=== PATIENT | female | born 1955 | race Caucasian/White ===

== ENCOUNTER → 2021-03-09 09:07 | Outpatient (CLI) | payer MEDICARE, SELFPAY ==
[2021-03-09 12:59] LABS: COVID19 -Nasal RAPID Negative (Negative)
== END ==
PROVIDERS: Family Provider Family Medicine; PCP Family Medicine; Visit Provider Obstetrics & Gynecology
DX: Z20.822 Contact with and (suspected) exposure to COVID-19 (principal)
CPT/HCPCS: 87635

== ENCOUNTER 2021-03-10 09:33 | Day surgery (SDC) | payer MEDICARE, SELFPAY ==
[2021-03-10 10:05] VITALS: BP 134/84; PULSE 101; RESP 16; TEMP 36.8; O2SAT 96; BMI 40.8
--- NOTE | 2021-03-10 10:48 | PM.HP.1 ---
History of Present Illness History of Present Illness Date Patient Seen: 03/10/21 Time Patient Seen: 10:48 Chief complaint: SDC Narrative: Patient is a 65-year-old 3 para 2 with multiple bilateral sebaceous cysts of the labia. She is here for excision. Patient History Family & Social History Social History: household members spouse Tobacco & Substance use: Smoking Status Never smoker alcohol intake never Substance Use Type marijuana Meds Home Medications and Allergies Home Medications Medication Instructions Recorded Confirmed Type simvastatin 20 mg PO HS #0 08/09/12 03/10/21 History clonazepam 0.5 mg tablet 0.5 mg PO DAILY 02/16/21 03/10/21 History amlodipine 2.5 mg PO DAILY 03/10/21 03/10/21 History losartan 25 mg PO DAILY 03/10/21 03/10/21 History mirabegron [Myrbetriq] 25 mg PO DAILY 03/10/21 03/10/21 History Allergies Allergy/AdvReac Type Severity Reaction Status Date / Time penicillin G Allergy Intermediate Verified 03/10/21 09:56 Exam Vital Signs (past 8 hours): - 03/10/21 10:05 Temperature 98.3 F Pulse Rate 101 H Respiratory Rate 16 Blood Pressure 134/84 Pulse Oximetry 96 Oxygen Delivery Method Room Air Narrative Exam Narrative: HEENT: No thyromegaly, no anterior cervical or supraclavicular lymphadenopathy. Lungs:Clear to auscultation bilaterally, no wheezes. Cardiovascular: Regular rate and rhythm, no murmurs, rubs, or gallops. Abdomen: No scars. No hepatosplenomegaly. No masses palpable. External genitalia: Multiple sebaceous cysts of bilateral labia. Approximately 20 Assessment & Plan Assessment & Plan narrative: Assessment: 65-year-old 3 para 2 with multiple bilateral sebaceous cysts of the labia Plan: Excision of labial sebaceous cysts The risks, benefits, and alternatives to the procedure were explained to the patient. The risks including bleeding and infection. She understands these risks and agrees to proceed. A full par Q was held and consent form was signed. COVID-19 COVID-19 status: Negative Result date/Date tested (Pos, Neg/Pending): 03/09/21 Time Spent With Patient Time with patient: less than 15 minutes
--- NOTE | 2021-03-10 10:50 | PM.PREOP ---
Pre-operative Note COVID-19 COVID-19 status: Negative Result date/Date tested (Pos, Neg/Pending): 03/09/21 Interval Note History & Physical reviewed/Exam performed by Physician: Yes Changes to H&P: No H&P completed within 30 days and has changed as indicated here:: 03/10/21
[2021-03-10] MEDS: CEFAZOLIN 1 GM VIAL 2 GM IV (11:05)
--- NOTE | 2021-03-10 11:15 | SUR.OPER ---
Lithotomy on padded OR bed, head on pillow, arms secured on padded arm boards at <90 degrees abduction. Legs secured in padded yellow fins stirrups.
[2021-03-10] MEDS: BUPIVACAINE 0.5% W/ EPI (PF) 30 ML VIAL INJ (11:17)
[2021-03-10] MEDS: SILVER SULFADIAZINE 1% CREAM 25 GM 1 APPLIC TOP (11:49)
--- NOTE | 2021-03-10 11:59 | P.OP_ITS ---
Operative Date/Time/Diagnoses Date of procedure: 03/10/21 Time of procedure: 11:59 Pre-op diagnosis: Bilateral sebaceous cysts of the labia minora Post-op diagnosis: same Procedure & Clinicians Procedure: Procedures Operation Date: 03/10/21 10:45 Actual Procedures Side Surgeon p Excision Vulvar Masses Shelbie Ivan MD Indications: Numerous sebaceous cysts of bilateral labia minora Surgeon: Shelbie Ivan Anesthesia Type: General (LMA) and Local Operative Notes Findings: Approximately 80 sebaceous cysts ranging in size from 3 mm to 10 mm in length on the bilateral labia minora Closure Type: not applicable Specimen(s): none Estimated blood loss (mL): 5 Blood products transfused: none Procedure in detail: After informed consent was obtained, the patient was taken to the operating room where she was placed in the dorsal supine position. After adequate LMA general anesthesia was achieved, she was placed in the dorsal lithotomy position, and prepped and draped in the usual sterile fashion. 10 cc of 0.25% Marcaine with epinephrine were injected in the subcutaneous tissue on both labia minora. Incisions were made over sebaceous cyst, there were multiple cysts in each incision, and the sebaceous cysts were removed. The base of the cyst capsule was removed and cauterized with the Bovie. Approximately 80 sebaceous cysts were removed. One incision was approximately 1 cm in length and a 4 0 chromic suture was used to close with the [id number] suture. Hemostasis was achieved. Silvadene cream was placed over both labia minora. Sponge, lap, and instrument counts were correct x2. The patient tolerated the p rocedure well, and was taken to PACU in stable condition. Complications: none Post-operative Condition: stable Disposition: PACU Plan for aftercare: Home after recovery
[2021-03-10 12:03] VITALS: BP 141/79; PULSE 89; RESP 15; TEMP 36.3; O2SAT 98
[2021-03-10 12:08] VITALS: BP 122/78; PULSE 82; RESP 13; O2SAT 98
[2021-03-10 12:13] VITALS: BP 116/42; PULSE 82; RESP 13; O2SAT 96
[2021-03-10 12:18] VITALS: BP 120/54; PULSE 80; RESP 14; O2SAT 96
[2021-03-10 12:44] VITALS: BP 134/79; PULSE 71; RESP 16; TEMP 36.8; O2SAT 96
== END 2021-03-10 12:59 | disposition home or self-care (01) ==
PROVIDERS: Family Provider Family Medicine; PCP Family Medicine; Referring Provider Obstetrics & Gynecology; Visit Provider Obstetrics & Gynecology
PROC: (CPT 11426; principal; 2021-03-10 10:45)
DX: L72.3 Sebaceous cyst (principal); N94.89 Other specified conditions associated with female genital organs and menstrual cycle; I10 Essential (primary) hypertension; E78.5 Hyperlipidemia, unspecified
CPT/HCPCS: 11426; J0690; J2704; J3010

== ENCOUNTER 2022-01-11 15:02 | Emergency (ER) | payer MEDICARE, SELFPAY ==
[2022-01-11] VITALS (19 sets, daily range): BP systolic 149–188; BP diastolic 66–98; PULSE 43–91; RESP 13–28; TEMP 36.2–37.1; O2SAT 91–99
--- NOTE | 2022-01-11 15:14 | DI.RAD.S_ITS ---
PROCEDURE: XR CHEST 1V INDICATIONS: suspected sepsis TECHNIQUE: One view of the chest was acquired. COMPARISON: [facility], , CHEST 1 VIEW, 08/09/2012, 11:06. FINDINGS: Surgical changes and devices: None. Lungs and pleura: Patchy airspace opacity in the medial aspect of the right lower lung zone, concerning for pneumonic infiltrate. No pleural effusions or pneumothorax. Mediastinum: Mediastinal contours appear normal. Heart size is normal. Bones and chest wall: No suspicious bony lesions. Overlying soft tissues appear unremarkable. IMPRESSION: Suspected pneumonic infiltrate in the medial aspect of the right lower lung zone Dictated by: Hong Ling M.D. on 01/11/2022 at 16:29 Approved by: Hong Ling M.D. on 01/11/2022 at 16:29
--- NOTE | 2022-01-11 15:20 | ED_ITS ---
HPI - Abdominal Pain <Adelina Villeda DO - Last Filed: 01/14/22 19:05> General Chief Complaint: Abdominal Pain Stated Complaint: sick after mouth surgery yesterday Time Seen by Provider: 01/11/22 15:17 History of Present Illness HPI narrative: Patient is a 66-year-old who with history of hyperlipidemia presents with nausea and vomiting. She apparently had dental surgery yesterday she was started on amoxicillin. She took amoxicillin ibuprofen this morning before breakfast and has been vomiting ever since. She has been unable to keep anything down. No diarrhea. She is having all over abdominal pain as well. She has not had any fever or chills. Yesterday she was feeling her normal self. She denies any chest pain dizziness or passing out. Related Data Home Medications Medication Instructions Recorded Confirmed simvastatin 10 mg tablet 20 mg PO HS #0 08/09/12 01/14/22 clonazepam 0.5 mg tablet 0.14 mg PO DAILY 02/16/21 01/14/22 amlodipine 2.5 mg tablet 2.5 mg PO DAILY 03/10/21 01/14/22 losartan 25 mg tablet 25 mg PO DAILY 03/10/21 01/14/22 conjugated estrogens 0.625 mg/gram VAGINAL 01/14/22 vaginal cream (Premarin) Previous Rx's Medication Instructions Recorded ciprofloxacin HCl 500 mg tablet 500 mg PO BID #14 tab 01/11/22 (Cipro) hydrocodone 5 mg-acetaminophen 325 1 tab PO Q6H PRN #20 tab 01/11/22 mg tablet metronidazole 500 mg tablet 500 mg PO TID #21 tab 01/11/22 promethazine 25 mg tablet 25 mg PO TID PRN #14 tab 01/11/22 Allergies Allergy/AdvReac Type Severity Reaction Status Date / Time penicillin G Allergy Intermediate Verified 04/07/21 14:43 ciprofloxacin [From Cipro] AdvReac Severe Vomiting Verified 01/14/22 17:12 metronidazole [From Flagyl] AdvReac Severe Vomiting Verified 01/14/22 17:12 Review of Systems <Adelina Villeda DO - Last Filed: 01/14/22 19:05> Review of Systems Narrative: GENERAL: Denies chills, fatigue, malaise, fever, sweats, travel HEENT: Denies sinus pain, ear pain, sore throat, difficulty swallowing, neck pain RESPIRATORY: Denies dyspnea, cough, wheezing, hemoptysis, sputum. CARDIOVASCULAR: Denies chest pain, palpitations, orthopnea, edema GASTROINTESTINAL: See HPI : Denies dysuria, frequency, incontinence, hematuria, urinary retention, flank pain. MUSCULOSKELETAL: Denies weakness, joint pain, or bony pain SKIN: No rash, no erythema, no pruritus NEUROLOGIC: Denies weakness, dizziness, headache, numbness, change in speech, confusion PSYCHIATRIC: No concerning psychosocial issues. 12 point review of systems is negative except for those stated above and HPI Patient History <Adelina Villeda DO - Last Filed: 01/14/22 19:05> Medical History (Updated 01/14/22 @ 17:09 by Benja Alexandre MD) Cannabis use disorder, mild, in controlled environment Diverticulitis Essential hypertension Hyperlipidemia Insomnia Surgical History (Updated 01/14/22 @ 17:09 by Benja Alexandre MD) No significant past surgical history Family History (Updated 01/14/22 @ 17:10 by Benja Alexandre MD) Father Diverticulitis Heart attack Mother Hypertension Social History household members: spouse Smoking Status: Former smoker alcohol intake: never Smoking Status: Never smoker Substance Use Type: marijuana Exam <Adelina Villeda DO - Last Filed: 01/14/22 19:05> Initial Vital Signs Initial Vital Signs: Vital Signs Pulse Rate 74 01/11/22 15:11 Pulse Oximetry 98 01/11/22 15:11 GENERAL: Alert 66-year-old female appears to not feel well HEENT: Head atraumatic,EOMI, pupils reactive, face symmetric, moist mucous membranes CARDIOVASCULAR: Regular rate and rhythm without murmurs, rubs or gallops. RESPIRATORY: Breath sounds equal bilaterally, no wheezes rales or rhonchi. ABDOMEN: Soft, diffusely tender but more tender in the epigastric area minimal right upper quadrant pain EXTREMITIES: Normal range of motion, no clubbing or edema. Neurovascularly intact NEUROLOGICAL: Alert and oriented x4.Normal gait and speech. SKIN: Warm, dry, no laceration, no petechiae, no rashes or lesions. <Peter Corbin MD - Last Filed: 01/11/22 23:24> Initial Vital Signs Initial Vital Signs: Vital Signs Pulse Rate 74 01/11/22 15:11 Pulse Oximetry 98 01/11/22 15:11 Course <Adelina Villeda, DO - Last Filed: 01/14/22 19:05> Orders Ordered: Discontinued Medications Sodium Chloride (Normal Saline 0.9%) 1,000 mls @ 1,000 mls/hr IV BOLUS ONE Stop: 01/11/22 16:13 Last Infusion: 01/11/22 17:35 Dose: 0 mls/hr Documented by: Admin: 01/11/22 15:33 Dose: 1,000 mls/hr Documented by: JOHN Sodium Chloride (Normal Saline 0.9%) 1,000 mls @ 1,000 mls/hr IV BOLUS ONE Stop: 01/11/22 19:06 Last Infusion: 01/11/22 19:32 Dose: 0 mls/hr Documented by: Admin: 01/11/22 18:14 Dose: 1,000 mls/hr Documented by: JOHN Ketorolac Tromethamine (Ketorolac 30 Mg/Ml Vial) 15 mg IV NOW ONE Stop: 01/11/22 15:23 Last Admin: 01/11/22 15:37 Dose: 15 mg Documented by: JOHN Metoclopramide HCl (Metoclopramide 10 Mg/2 Ml Inj) 10 mg IV NOW ONE Stop: 01/11/22 18:08 Last Admin: 01/11/22 18:13 Dose: 10 mg Documented by: JOHN Metronidazole (Metronidazole 500 Mg Tablet) 500 mg PO NOW ONE Stop: 01/11/22 20:36 Last Admin: 01/11/22 20:45 Dose: 500 mg Documented by: JOHN Morphine Sulfate (Morphine 2 Mg/Ml Inj) 2 mg IV NOW ONE Stop: 01/11/22 16:24 Last Admin: 01/11/22 16:52 Dose: 2 mg Documented by: JOHN Ondansetron HCl (Ondansetron 4 Mg/2 Ml Inj) 4 mg IV NOW ONE Stop: 01/11/22 15:22 Last Admin: 01/11/22 15:36 Dose: 4 mg Documented by: JOHN Ondansetron HCl (Ondansetron 4 Mg/2 Ml Inj) 4 mg IV NOW ONE Stop: 01/11/22 16:24 Last Admin: 01/11/22 16:52 Dose: 4 mg Documented by: JOHN Pantoprazole Sodium (Pantoprazole 40 Mg Vial) 40 mg IV NOW ONE Stop: 01/11/22 15:22 Last Admin: 01/11/22 15:35 Dose: 40 mg Documented by: JOHN Vital Signs Vital signs: Vital Signs - 8 hr 01/11/22 15:30 01/11/22 15:39 01/11/22 16:00 Temperature Pulse Rate 77 81 70 Respiratory Rate 19 28 H 21 Blood Pressure 149/87 H Pulse Oximetry 99 99 98 01/11/22 16:18 01/11/22 16:30 01/11/22 16:53 Temperature Pulse Rate 72 78 76 Respiratory Rate 26 H 14 19 Blood Pressure 187/85 H 185/82 H Pulse Oximetry 99 99 99 01/11/22 17:00 01/11/22 17:15 01/11/22 17:30 Temperature Pulse Rate 65 68 73 Respiratory Rate 16 15 23 Blood Pressure 185/84 H 167/79 H 174/98 H Pulse Oximetry 95 98 97 01/11/22 19:00 01/11/22 19:01 01/11/22 19:30 Temperature Pulse Rate 77 80 43 L Respiratory Rate 13 21 Blood Pressure 188/86 H Pulse Oximetry 99 98 98 01/11/22 19:32 01/11/22 19:37 01/11/22 20:14 Temperature 98.7 F Pulse Rate 91 H 83 Respiratory Rate 19 Blood Pressure 178/98 H 178/98 H Pulse Oximetry 98 98 91 01/11/22 20:15 Temperature Pulse Rate 81 Respiratory Rate Blood Pressure 160/66 H Pulse Oximetry 95 <Peter Corbin MD - Last Filed: 01/11/22 23:24> Course Course Narrative: 7:30 p.[address].. Sign out from dr villeda, laboratory studies/lactic acid is pending. If decreasing then can be dc home. needs flagyl and cipro and pain meds for dc. Patient already on Flagyl. It may be an issue with insurance if tried to continue with antibiotic Levaquin. Orders Ordered: Discontinued Medications Sodium Chloride (Normal Saline 0.9%) 1,000 mls @ 1,000 mls/hr IV BOLUS ONE Stop: 01/11/22 16:13 Last Infusion: 01/11/22 17:35 Dose: 0 mls/hr Documented by: Admin: 01/11/22 15:33 Dose: 1,000 mls/hr Documented by: JOHN Sodium Chloride (Normal Saline 0.9%) 1,000 mls @ 1,000 mls/hr IV BOLUS ONE Stop: 01/11/22 19:06 Last Infusion: 01/11/22 19:32 Dose: 0 mls/hr Documented by: Admin: 01/11/22 18:14 Dose: 1,000 mls/hr Documented by: JOHN Ketorolac Tromethamine (Ketorolac 30 Mg/Ml Vial) 15 mg IV NOW ONE Stop: 01/11/22 15:23 Last Admin: 01/11/22 15:37 Dose: 15 mg Documented by: JOHN Metoclopramide HCl (Metoclopramide 10 Mg/2 Ml Inj) 10 mg IV NOW ONE Stop: 01/11/22 18:08 Last Admin: 01/11/22 18:13 Dose: 10 mg Documented by: JOHN Metronidazole (Metronidazole 500 Mg Tablet) 500 mg PO NOW ONE Stop: 01/11/22 20:36 Last Admin: 01/11/22 20:45 Dose: 500 mg Documented by: JOHN Morphine Sulfate (Morphine 2 Mg/Ml Inj) 2 mg IV NOW ONE Stop: 01/11/22 16:24 Last Admin: 01/11/22 16:52 Dose: 2 mg Documented by: JOHN Ondansetron HCl (Ondansetron 4 Mg/2 Ml Inj) 4 mg IV NOW ONE Stop: 01/11/22 15:22 Last Admin: 01/11/22 15:36 Dose: 4 mg Documented by: JOHN Ondansetron HCl (Ondansetron 4 Mg/2 Ml Inj) 4 mg IV NOW ONE Stop: 01/11/22 16:24 Last Admin: 01/11/22 16:52 Dose: 4 mg Documented by: JOHN Pantoprazole Sodium (Pantoprazole 40 Mg Vial) 40 mg IV NOW ONE Stop: 01/11/22 15:22 Last Admin: 01/11/22 15:35 Dose: 40 mg Documented by: JOHN Reevaluation(s) Reevaluation #1: Patient feeling much better. Reviewed results with patient and . Return precautions reviewed with him. They desire discharge home. She did take Levaquin already today. They do understand and agree with [facility] as insurance may not cover for Levaquin to continue from her oral surgery. Time: 20:30 Vital Signs Vital signs: Vital Signs - 8 hr 01/11/22 15:30 01/11/22 15:39 01/11/22 16:00 Temperature Pulse Rate 77 81 70 Respiratory Rate 19 28 H 21 Blood Pressure 149/87 H Pulse Oximetry 99 99 98 01/11/22 16:18 01/11/22 16:30 01/11/22 16:53 Temperature Pulse Rate 72 78 76 Respiratory Rate 26 H 14 19 Blood Pressure 187/85 H 185/82 H Pulse Oximetry 99 99 99 01/11/22 17:00 01/11/22 17:15 01/11/22 17:30 Temperature Pulse Rate 65 68 73 Respiratory Rate 16 15 23 Blood Pressure 185/84 H 167/79 H 174/98 H Pulse Oximetry 95 98 97 01/11/22 19:00 01/11/22 19:01 01/11/22 19:30 Temperature Pulse Rate 77 80 43 L Respiratory Rate 13 21 Blood Pressure 188/86 H Pulse Oximetry 99 98 98 01/11/22 19:32 01/11/22 19:37 01/11/22 20:14 Temperature 98.7 F Pulse Rate 91 H 83 Respiratory Rate 19 Blood Pressure 178/98 H 178/98 H Pulse Oximetry 98 98 91 01/11/22 20:15 Temperature Pulse Rate 81 Respiratory Rate Blood Pressure 160/66 H Pulse Oximetry 95 MDM - Abdominal Pain <Adelina Villeda, DO - Last Filed: 01/14/22 19:05> Lab Data Result diagrams: 01/11/22 15:34 01/11/22 15:34 Labs: Lab Results 01/11/22 01/11/22 01/11/22 Range/Units 15:34 15:34 15:34 WBC 15.8 H (4.5-11.0) X10^3/uL RBC 4.86 (4.0-5.2) X10^6/uL Hgb 15.2 (12.0-16.0) g/dL Hct 44.5 (36-46) % MCV 91.7 (80-100) fL MCH 31.4 (26-34) PG MCHC 34.2 (30-36) % RDW 13.4 (11.6-14.8) % Plt Count 204 (150-400) X10^3/uL Neut % (Auto) 88.4 H (50-75) % Lymph % (Auto) 5.8 L (25-40) % [place]uyler % (Auto) 5.0 (3-14) % Eos % (Auto) 0.5 L (2-4) % Baso % (Auto) 0.3 (0-2) % Neut # (Auto) 83406 H (3200-8693) /uL Lymph # (Auto) 900 L (6154-8043) /uL [place]uyler # (Auto) 800 (0-900) /uL Eos # (Auto) 100 (0-450) /uL Baso # (Auto) 100 (0-100) /uL Plt Morphology Comment RBC Morphology Normal morphology Sodium 136 L (137-145) mmol/L Potassium 3.6 (3.4-5.1) mmol/L Chloride 104 (98-107) mmol/L Carbon Dioxide 23 (22-32) mmol/L BUN 21 H (7-17) mg/dL Creatinine 0.73 (0.52-1.04) mg/dL Estimated GFR > 60.0 (>60) mL/min BUN/Creatinine Ratio 28.8 H (6-22) Glucose 193 H (80-110) mg/dL Lactate 2.5 H (0.7-2.1) mmol/L Calcium 9.8 (8.4-10.2) mg/dL Total Bilirubin 0.5 (0.2-1.3) mg/dL AST 27 (14-36) IU/L ALT 19 (<35) IU/L Alkaline Phosphatase 65 (38-126) U/L Total Creatine Kinase (30-135) U/L CK-MB (CK-2) (<2.37) ng/mL CK-MB (CK-2) Rel Index (1.5-5.0) % Troponin I (0.01-0.034) ng/mL Total Protein 7.3 (6.3-8.2) g/dL Albumin 4.5 (3.5-5.0) g/dL Globulin 2.8 (1.7-4.1) g/dL Albumin/Globulin Ratio 1.6 (1.0-2.8) Lipase 50 (23-300) U/L Procalcitonin 0.04 (<0.5) ng/mL Urine RBC (0-5/HPF) Urine WBC (0-5/HPF) Ur Squamous Epith Cells (0-5/HPF) Urine Bacteria (None) Urine Yeast (None) Ur Culture Indicated? SARS-CoV-2 (PCR) (Negative) 01/11/22 01/11/22 01/11/22 Range/Units 15:34 16:00 16:52 WBC (4.5-11.0) X10^3/uL RBC (4.0-5.2) X10^6/uL Hgb (12.0-16.0) g/dL Hct (36-46) % MCV (80-100) fL MCH (26-34) PG MCHC (30-36) % RDW (11.6-14.8) % Plt Count (150-400) X10^3/uL Neut % (Auto) (50-75) % Lymph % (Auto) (25-40) % Schuyler % (Auto) (3-14) % Eos % (Auto) (2-4) % Baso % (Auto) (0-2) % Neut # (Auto) (3945-7806) /uL Lymph # (Auto) (0779-6066) /uL Schuyler # (Auto) (0-900) /uL Eos # (Auto) (0-450) /uL Baso # (Auto) (0-100) /uL Plt Morphology Comment RBC Morphology Sodium (137-145) mmol/L Potassium (3.4-5.1) mmol/L Chloride (98-107) mmol/L Carbon Dioxide (22-32) mmol/L BUN (7-17) mg/dL Creatinine (0.52-1.04) mg/dL Estimated GFR (>60) mL/min BUN/Creatinine Ratio (6-22) Glucose (80-110) mg/dL Lactate (0.7-2.1) mmol/L Calcium (8.4-10.2) mg/dL Total Bilirubin (0.2-1.3) mg/dL AST (14-36) IU/L ALT (<35) IU/L Alkaline Phosphatase (38-126) U/L Total Creatine Kinase 144 H (30-135) U/L CK-MB (CK-2) 3.46 H (<2.37) ng/mL CK-MB (CK-2) Rel Index 2.4 (1.5-5.0) % Troponin I < 0.012 (0.01-0.034) ng/mL Total Protein (6.3-8.2) g/dL Albumin (3.5-5.0) g/dL Globulin (1.7-4.1) g/dL Albumin/Globulin Ratio (1.0-2.8) Lipase (23-300) U/L Procalcitonin (<0.5) ng/mL Urine RBC None seen (0-5/HPF) Urine WBC None seen (0-5/HPF) Ur Squamous Epith Cells 0-1 /hpf (0-5/HPF) Urine Bacteria None seen (None) Urine Yeast 0-1/hpf (None) Ur Culture Indicated? Culture not indicate SARS-CoV-2 (PCR) Negative (Negative) 01/11/22 01/11/22 Range/Units 18:21 19:48 WBC (4.5-11.0) X10^3/uL RBC (4.0-5.2) X10^6/uL Hgb (12.0-16.0) g/dL Hct (36-46) % MCV (80-100) fL MCH (26-34) PG MCHC (30-36) % RDW (11.6-14.8) % Plt Count (150-400) X10^3/uL Neut % (Auto) (50-75) % Lymph % (Auto) (25-40) % Schuyler % (Auto) (3-14) % Eos % (Auto) (2-4) % Baso % (Auto) (0-2) % Neut # (Auto) (8218-4647) /uL Lymph # (Auto) (0008-6107) /uL Schuyler # (Auto) (0-900) /uL Eos # (Auto) (0-450) /uL Baso # (Auto) (0-100) /uL Plt Morphology Comment RBC Morphology Sodium (137-145) mmol/L Potassium (3.4-5.1) mmol/L Chloride (98-107) mmol/L Carbon Dioxide (22-32) mmol/L BUN (7-17) mg/dL Creatinine (0.52-1.04) mg/dL Estimated GFR (>60) mL/min BUN/Creatinine Ratio (6-22) Glucose (80-110) mg/dL Lactate 2.7 H 2.4 H (0.7-2.1) mmol/L Calcium (8.4-10.2) mg/dL Total Bilirubin (0.2-1.3) mg/dL AST (14-36) IU/L ALT (<35) IU/L Alkaline Phosphatase (38-126) U/L Total Creatine Kinase (30-135) U/L CK-MB (CK-2) (<2.37) ng/mL CK-MB (CK-2) Rel Index (1.5-5.0) % Troponin I (0.01-0.034) ng/mL Total Protein (6.3-8.2) g/dL Albumin (3.5-5.0) g/dL Globulin (1.7-4.1) g/dL Albumin/Globulin Ratio (1.0-2.8) Lipase (23-300) U/L Procalcitonin (<0.5) ng/mL Urine RBC (0-5/HPF) Urine WBC (0-5/HPF) Ur Squamous Epith Cells (0-5/HPF) Urine Bacteria (None) Urine Yeast (None) Ur Culture Indicated? SARS-CoV-2 (PCR) (Negative) Point of care testing: Urine Dip Bedside Urine Glucose 100 mg/dl Bedside Urine Bilirubin - Negative Bedside Urine Ketone + 15 Urine Specific [place] 1.015 Bedside Urine Occult Blood - Negative Bedside Urine pH 7.5 Bedside Urine Protein - Negative Bedside Urine Urobilinogen - Negative Bedside Urine Nitrite - Negative Bedside Urine Leukocytes - Negative Esterase Imaging Data CT scan - abdomen/pelvis: Radiologist's Impression: ADDENDUMThis report includes an Addendum and supersedes previous reports for this exam. ? ? ? PROCEDURE:? CT ABDOMEN PELVIS W CON ? INDICATIONS:? persistant pain and vomiting epigastric ? TECHNIQUE:? After the administration of oral and IV contrast, axial sections were acquired from the lung bases to the pubic symphysis.? Coronal and sagittal reformats were performed.? For radiation dose reduction, the following was used:? automated exposure control, adjustment of mA and/or kV according to patient size. ? COMPARISON:? None. ? FINDINGS:? Image quality:? Excellent.? ? Lung bases:? Unremarkable.? ? Heart:? No significant findings. ? ? ABDOMEN: Liver:? Hepatic steatosis is present. Gallbladder:? Prominent stones are present within the gallbladder.? No wall thickening. Biliary ducts:? Unremarkable.? ? Pancreas:? Unremarkable.? ? Spleen:? Unremarkable.? ? Adrenal Glands:? 3.3 x 2.4 cm heterogeneously enhancing left adrenal mass. Kidneys and Ureters:? Simple right renal cyst measuring 7.8 cm. ? Stomach and Bowel:? Stomach, small bowel loops, and colon are nonobstructive.? Prominent colonic diverticula are present.? There is thickened appearance within the sigmoid colon as well as minimal pericolonic inflammatory change.? It is noted that there is a masslike appearance within a portion of the sigmoid colon seen on series 2, image 66. Peritoneum:? No abnormal intraperitoneal fluid.? No free air.? ? Ventral Wall: ? No hernia.? Abdominal Nodes:? No retroperitoneal or mesenteric adenopathy by size criteria.? Vessels:? Aorta and inferior vena cava are normal in size.? ? PELVIS: Pelvic Organs:? Unremarkable.? ? Bladder:? Unremarkable.? ? Pelvic Nodes: No enlarged lymph nodes.? Miscellaneous: No inguinal hernias are seen. ? ? ? Bones:? Unremarkable.? IMPRESSION:? ? Thickening within the sigmoid colon with minimal inflammatory change and diverticula suggestive of colitis secondary to diverticulitis.? Recommend interval follow-up to document resolution, given somewhat masslike appearance. ? Cholelithiasis without imaging evidence of cholecystitis. ? ? Dictated by: Karlie Sandoval M.D. on 01/11/2022 at 16:51 ? ? Approved by: Karlie Sandoval M.D. on 01/11/2022 at 16:53 ? ? ? ADDENDUM: ? As noted in the findings, there is a left adrenal mass which is considered indeterminate on the basis of this exam.? No priors are available for comparison.? Further evaluation with CT or MRI with adrenal gland protocol is recommended. ? Dictated by: Karlie Sandoval M.D. on 01/11/2022 at 16:59 ? ? Approved by: Karlie Sandoval M.D. on 01/11/2022 at 16:59 ? Addendum Dictated By: Karlie Sandoval MD Addendum Signed By: Addendum Cosigned By: DD/ TD/TT: 01/11/22 PROCEDURE:? CT ABDOMEN PELVIS W CON ? INDICATIONS:? persistant pain and vomiting epigastric ? TECHNIQUE:? After the administration of oral and IV contrast, axial sections were acquired from the lung bases to the pubic symphysis.? Coronal and sagittal reformats were performed.? For radiation dose reduction, the following was used:? automated exposure control, adjustment of mA and/or kV according to patient size. ? COMPARISON:? None. ? FINDINGS:? Image quality:? Excellent.? ? Lung bases:? Unremarkable.? ? Heart:? No significant findings. ? ? ABDOMEN: Liver:? Hepatic steatosis is present. Gallbladder:? Prominent stones are present within the gallbladder.? No wall thickening. Biliary ducts:? Unremarkable.? ? Pancreas:? Unremarkable.? ? Spleen:? Unremarkable.? ? Adrenal Glands:? 3.3 x 2.4 cm heterogeneously enhancing left adrenal mass. Kidneys and Ureters:? Simple right renal cyst measuring 7.8 cm. ? Stomach and Bowel:? Stomach, small bowel loops, and colon are nonobstructive.? Prominent colonic diverticula are present.? There is thickened appearance within the sigmoid colon as well as minimal pericolonic inflammatory change.? It is noted that there is a masslike appearance within a portion of the sigmoid colon seen on series 2, image 66. Peritoneum:? No abnormal intraperitoneal fluid.? No free air.? ? Ventral Wall: ? No hernia.? Abdominal Nodes:? No retroperitoneal or mesenteric adenopathy by size criteria.? Vessels:? Aorta and inferior vena cava are normal in size.? ? PELVIS: Pelvic Organs:? Unremarkable.? ? Bladder:? Unremarkable.? ? Pelvic Nodes: No enlarged lymph nodes.? Miscellaneous: No inguinal hernias are seen. ? ? ? Bones:? Unremarkable.? IMPRESSION:? ? Thickening within the sigmoid colon with minimal inflammatory change and diverticula suggestive of colitis secondary to diverticulitis.? Recommend interval follow-up to document resolution, given somewhat masslike appearance. ? Cholelithiasis without imaging evidence of cholecystitis. ? ? Dictated by: Karlie Sandoval M.D. on 01/11/2022 at 16:51 ? ? ECG Data Interpretation: Normal sinus rhythm rate 73 IN interval 144 QRS [address] changes no T- wave inversions low voltage MDM Narrative Medical decision making narrative: Patient continues to feel nauseous she overall appears to not feel well. However she has not vomited after Zofran. She continues to have pain despite Toradol she is given a dose of morphine. She has been seen up to the restroom multiple times in the emergency department. Mild elevation in lead lactic acid of 2.5, with repeat of 2.7, has mild leukocytosis of 15. CT does confirm a co litis with a probable acute diverticulitis without complication. She is given a 2 L of fluid and Reglan. had to run home will continue to monitor and recheck lactate. Patient signed out to Dr. Corbin <Peter Corbin MD - Last Filed: 01/11/22 23:24> Differential Diagnosis Differential diagnosis: Likely abdominal pain, acute appendicitis, diverticulitis, pancreatitis and small bowel obstruction Lab Data Labs: Lab Results 01/11/22 01/11/22 01/11/22 Range/Units 15:34 15:34 15:34 WBC 15.8 H (4.5-11.0) X10^3/uL RBC 4.86 (4.0-5.2) X10^6/uL Hgb 15.2 (12.0-16.0) g/dL Hct 44.5 (36-46) % MCV 91.7 (80-100) fL MCH 31.4 (26-34) PG MCHC 34.2 (30-36) % RDW 13.4 (11.6-14.8) % Plt Count 204 (150-400) X10^3/uL Neut % (Auto) 88.4 H (50-75) % Lymph % (Auto) 5.8 L (25-40) % Schuyler % (Auto) 5.0 (3-14) % Eos % (Auto) 0.5 L (2-4) % Baso % (Auto) 0.3 (0-2) % Neut # (Auto) 44870 H (4162-8738) /uL Lymph # (Auto) 900 L (4127-9130) /uL Sch[place]yler # (Auto) 800 (0-900) /uL Eos # (Auto) 100 (0-450) /uL Baso # (Auto) 100 (0-100) /uL Plt Morphology Comment RBC Morphology Normal morphology Sodium 136 L (137-145) mmol/L Potassium 3.6 (3.4-5.1) mmol/L Chloride 104 (98-107) mmol/L Carbon Dioxide 23 (22-32) mmol/L BUN 21 H (7-17) mg/dL Creatinine 0.73 (0.52-1.04) mg/dL Estimated GFR > 60.0 (>60) mL/min BUN/Creatinine Ratio 28.8 H (6-22) Glucose 193 H (80-110) mg/dL Lactate 2.5 H (0.7-2.1) mmol/L Calcium 9.8 (8.4-10.2) mg/dL Total Bilirubin 0.5 (0.2-1.3) mg/dL AST 27 (14-36) IU/L ALT 19 (<35) IU/L Alkaline Phosphatase 65 (38-126) U/L Total Creatine Kinase (30-135) U/L CK-MB (CK-2) (<2.37) ng/mL CK-MB (CK-2) Rel Index (1.5-5.0) % Troponin I (0.01-0.034) ng/mL Total Protein 7.3 (6.3-8.2) g/dL Albumin 4.5 (3.5-5.0) g/dL Globulin 2.8 (1.7-4.1) g/dL Albumin/Globulin Ratio 1.6 (1.0-2.8) Lipase 50 (23-300) U/L Procalcitonin 0.04 (<0.5) ng/mL Urine RBC (0-5/HPF) Urine WBC (0-5/HPF) Ur Squamous Epith Cells (0-5/HPF) Urine Bacteria (None) Urine Yeast (None) Ur Culture Indicated? SARS-CoV-2 (PCR) (Negative) 01/11/22 01/11/22 01/11/22 Range/Units 15:34 16:00 16:52 WBC (4.5-11.0) X10^3/uL RBC (4.0-5.2) X10^6/uL Hgb (12.0-16.0) g/dL Hct (36-46) % MCV (80-100) fL MCH (26-34) PG MCHC (30-36) % RDW (11.6-14.8) % Plt Count (150-400) X10^3/uL Neut % (Auto) (50-75) % Lymph % (Auto) (25-40) % Schuyler % (Auto) (3-14) % Eos % (Auto) (2-4) % Baso % (Auto) (0-2) % Neut # (Auto) (1070-7201) /uL Lymph # (Auto) (5371-4953) /uL [place] # (Auto) (0-900) /uL Eos # (Auto) (0-450) /uL Baso # (Auto) (0-100) /uL Plt Morphology Comment RBC Morphology Sodium (137-145) mmol/L Potassium (3.4-5.1) mmol/L Chloride (98-107) mmol/L Carbon Dioxide (22-32) mmol/L BUN (7-17) mg/dL Creatinine (0.52-1.04) mg/dL Estimated GFR (>60) mL/min BUN/Creatinine Ratio (6-22) Glucose (80-110) mg/dL Lactate (0.7-2.1) mmol/L Calcium (8.4-10.2) mg/dL Total Bilirubin (0.2-1.3) mg/dL AST (14-36) IU/L ALT (<35) IU/L Alkaline Phosphatase (38-126) U/L Total Creatine Kinase 144 H (30-135) U/L CK-MB (CK-2) 3.46 H (<2.37) ng/mL CK-MB (CK-2) Rel Index 2.4 (1.5-5.0) % Troponin I < 0.012 (0.01-0.034) ng/mL Total Protein (6.3-8.2) g/dL Albumin (3.5-5.0) g/dL Globulin (1.7-4.1) g/dL Albumin/Globulin Ratio (1.0-2.8) Lipase (23-300) U/L Procalcitonin (<0.5) ng/mL Urine RBC None seen (0-5/HPF) Urine WBC None seen (0-5/HPF) Ur Squamous Epith Cells 0-1 /hpf (0-5/HPF) Urine Bacteria None seen (None) Urine Yeast 0-1/hpf (None) Ur Culture Indicated? Culture not indicate SARS-CoV-2 (PCR) Negative (Negative) 01/11/22 01/11/22 Range/Units 18:21 19:48 WBC (4.5-11.0) X10^3/uL RBC (4.0-5.2) X10^6/uL Hgb (12.0-16.0) g/dL Hct (36-46) % MCV (80-100) fL MCH (26-34) PG MCHC (30-36) % RDW (11.6-14.8) % Plt Count (150-400) X10^3/uL Neut % (Auto) (50-75) % Lymph % (Auto) (25-40) % [place] % (Auto) (3-14) % Eos % (Auto) (2-4) % Baso % (Auto) (0-2) % Neut # (Auto) (2576-9385) /uL Lymph # (Auto) (0420-4125) /uL [place] # (Auto) (0-900) /uL Eos # (Auto) (0-450) /uL Baso # (Auto) (0-100) /uL Plt Morphology Comment RBC Morphology Sodium (137-145) mmol/L Potassium (3.4-5.1) mmol/L Chloride (98-107) mmol/L Carbon Dioxide (22-32) mmol/L BUN (7-17) mg/dL Creatinine (0.52-1.04) mg/dL Estimated GFR (>60) mL/min BUN/Creatinine Ratio (6-22) Glucose (80-110) mg/dL Lactate 2.7 H 2.4 H (0.7-2.1) mmol/L Calcium (8.4-10.2) mg/dL Total Bilirubin (0.2-1.3) mg/dL AST (14-36) IU/L ALT (<35) IU/L Alkaline Phosphatase (38-126) U/L Total Creatine Kinase (30-135) U/L CK-MB (CK-2) (<2.37) ng/mL CK-MB (CK-2) Rel Index (1.5-5.0) % Troponin I (0.01-0.034) ng/mL Total Protein (6.3-8.2) g/dL Albumin (3.5-5.0) g/dL Globulin (1.7-4.1) g/dL Albumin/Globulin Ratio (1.0-2.8) Lipase (23-300) U/L Procalcitonin (<0.5) ng/mL Urine RBC (0-5/HPF) Urine WBC (0-5/HPF) Ur Squamous Epith Cells (0-5/HPF) Urine Bacteria (None) Urine Yeast (None) Ur Culture Indicated? SARS-CoV-2 (PCR) (Negative) Point of care testing: Urine Dip Bedside Urine Glucose 100 mg/dl Bedside Urine Bilirubin - Negative Bedside Urine Ketone + 15 Urine Specific [place] 1.015 Bedside Urine Occult Blood - Negative Bedside Urine pH 7.5 Bedside Urine Protein - Negative Bedside Urine Urobilinogen - Negative Bedside Urine Nitrite - Negative Bedside Urine Leukocytes - Negative Esterase MDM Narrative Medical decision making narrative: Patient continues to feel nauseous she overall appears to not feel well. However she has not vomited after Zofran. She continues to have pain despite Toradol she is given a dose of morphine. She has been seen up to the restroom multiple times in the emergency department. Mild elevation in lead lactic acid of 2.5, with repeat of 2.7, has mild leukocytosis of 15. CT does confirm a colitis with a probable acute diverticulitis without complication. She is given a 2 L of fluid and Reglan. had to run home will continue to monitor and recheck lactate. Patient signed out to Dr. Corbin Appropriate for discharge home. Lactic acid is decreasing. Patient and desire discharge home. Prescriptions provided for them. Discharge Plan Departure Patient Disposition: Home Clinical Impression: Diverticulitis Instructions: DI for Diverticulitis Activity Restrictions/Additional Instructions: No driving or operating machinery tonight. Return if worse if any questions or concerns. Please see family doctor next week for re-evaluation. Please call Dr. Preciado office tomorrow to schedule for colonoscopy. Prescription antibiotics have been provided as well as pain medication and nausea medication Prescriptions: New hydrocodone-acetaminophen 5-325 mg tablet 1 tab PO Q6H PRN (Reason: pain) Qty: 20 0RF ciprofloxacin HCl [Cipro] 500 mg tablet 500 mg PO BID Qty: 14 0RF metronidazole 500 mg tablet 500 mg PO TID Qty: 21 0RF promethazine 25 mg tablet 25 mg PO TID PRN (Reason: nausea and vomiting) Qty: 14 0RF No Action simvastatin 10 MG tablet 20 mg PO HS Qty: 0 0RF clonazepam 0.5 mg tablet 0.14 mg PO DAILY 0RF Label Comments: takes for sleeping amlodipine 2.5 mg tablet 2.5 mg PO DAILY 0RF losartan 25 mg tablet 25 mg PO DAILY 0RF Premarin 0.625 mg/gram cream vaginal 0RF Label Comments: apply TO PERIURETHRAL REGION every other day AND TAPER TO EVERY OTHER WEEKS Referrals: Tammi Preciado MD [Physician] - Peter Naik DO [Primary Care Provider] -
[2022-01-11] MEDS: SODIUM CHLORIDE 0.9% 1,000 ML 1000 ML IV ×2 (15:33→18:14)
[2022-01-11] MEDS: PANTOPRAZOLE 40 MG VIAL IV (15:35)
[2022-01-11] MEDS: ONDANSETRON 4 MG/2 ML INJ IV ×2 (15:36→16:52)
[2022-01-11] MEDS: KETOROLAC 30 MG/ML VIAL 15 MG IV (15:37)
[2022-01-11 15:55] LABS: Basophils Absolute Auto 100 /uL (0-100); Basophils Percent Auto 0.3 % (0-2); Eosinophils Absolute Auto 100 /uL (0-450); Eosinophils Percent Auto 0.5 % (2-4); Hematocrit 44.5 % (36-46); Hemoglobin 15.2 g/dL (12.0-16.0); Lymphocytes Absolute Auto 900 /uL (1100-4500); Lymphocytes Percent Auto 5.8 % (25-40); Mean Corpuscular HGB Conc 34.2 % (30-36); Mean Corpuscular Hemoglobin 31.4 PG (26-34); Mean Corpuscular Volume 91.7 fL (80-100); Monocytes Absolute Auto 800 /uL (0-900); Neutrophils Absolute Auto 13900 /uL (1500-7000); Neutrophils Percent Auto 88.4 % (50-75); Platelet Count 204 X10^3/uL (150-400); Red Blood Cell Count 4.86 X10^6/uL (4.0-5.2); Red Cell Distribution Width 13.4 % (11.6-14.8); White Blood Cell Count 15.8 X10^3/uL (4.5-11.0)
[2022-01-11 15:57] LABS: Add Manual Diff / Slide Review SLIDE REVIEW
[2022-01-11 16:02] LABS: Alanine Aminotransferase 19 IU/L (<35); Albumin 4.5 g/dL (3.5-5.0); Albumin Globulin Ratio 1.6 (1.0-2.8); Alkaline Phosphatase 65 U/L (38-126); Aspartate Aminotransferase 27 IU/L (14-36); BUN Creatinine Ratio 28.8 (6-22); Bilirubin Total 0.5 mg/dL (0.2-1.3); Blood Urea Nitrogen 21 mg/dL (7-17); Calcium 9.8 mg/dL (8.4-10.2); Carbon Dioxide 23 mmol/L (22-32); Chloride 104 mmol/L (98-107); Estimated Glomerular Filt Rate > 60.0 mL/min (>60); Globulin 2.8 g/dL (1.7-4.1); Glucose 193 mg/dL (80-110); HEMOLYSIS < 15 (0-50); Lipase 50 U/L (23-300); Potassium 3.6 mmol/L (3.4-5.1); Sodium 136 mmol/L (137-145); Total Protein 7.3 g/dL (6.3-8.2)
[2022-01-11 16:03] LABS: Lactate (Lactic Acid) 2.5 mmol/L (0.7-2.1)
[2022-01-11 16:19] LABS: Procalcitonin 0.04 ng/mL (<0.5)
[2022-01-11 16:21] LABS: COVID19 -Nasal RAPID Negative (Negative)
--- NOTE | 2022-01-11 16:23 | DI.CT.S_ITS ---
PROCEDURE: CT ABDOMEN PELVIS W CON INDICATIONS: persistant pain and vomiting epigastric TECHNIQUE: After the administration of oral and IV contrast, axial sections were acquired from the lung bases to the pubic symphysis. Coronal and sagittal reformats were performed. For radiation dose reduction, the following was used: automated exposure control, adjustment of mA and/or kV according to patient size. COMPARISON: None. FINDINGS: Image quality: Excellent. Lung bases: Unremarkable. Heart: No significant findings. ABDOMEN: Liver: Hepatic steatosis is present. Gallbladder: Prominent stones are present within the gallbladder. No wall thickening. Biliary ducts: Unremarkable. Pancreas: Unremarkable. Spleen: Unremarkable. Adrenal Glands: 3.3 x 2.4 cm heterogeneously enhancing left adrenal mass. Kidneys and Ureters: Simple right renal cyst measuring 7.8 cm. Stomach and Bowel: Stomach, small bowel loops, and colon are nonobstructive. Prominent colonic diverticula are present. There is thickened appearance within the sigmoid colon as well as minimal pericolonic inflammatory change. It is noted that there is a masslike appearance within a portion of the sigmoid colon seen on series 2, image 66. Peritoneum: No abnormal intraperitoneal fluid. No free air. Ventral Wall: No hernia. Abdominal Nodes: No retroperitoneal or mesenteric adenopathy by size criteria. Vessels: Aorta and inferior vena cava are normal in size. PELVIS: Pelvic Organs: Unremarkable. Bladder: Unremarkable. Pelvic Nodes: No enlarged lymph nodes. Miscellaneous: No inguinal hernias are seen. Bones: Unremarkable. IMPRESSION: Thickening within the sigmoid colon with minimal inflammatory change and diverticula suggestive of colitis secondary to diverticulitis. Recommend interval follow-up to document resolution, given somewhat masslike appearance. Cholelithiasis without imaging evidence of cholecystitis. Dictated by: Karlie Sandoval M.D. on 01/11/2022 at 16:51 Approved by: Karlie Sandoval M.D. on 01/11/2022 at 16:53
[2022-01-11 16:40] LABS: RBC Morphology Normal Morphology
[2022-01-11] MEDS: MORPHINE 2 MG/ML INJ IV (16:52)
[2022-01-11 16:55] LABS: Creatine Kinase 144 U/L (30-135); Creatine Kinase MB 3.46 ng/mL (<2.37); Troponin I < 0.012 ng/mL (0.01-0.034)
[2022-01-11 16:56] LABS: CKMB % Relative Index 2.4 % (1.5-5.0)
[2022-01-11 17:16] LABS: Bacteria Urine None Seen; RBC Urine None Seen (0-5/HPF); Squamous Epithelial Cell Urine 0-1 /HPF (0-5/HPF); WBC Urine None Seen (0-5/HPF)
[2022-01-11 17:40] LABS: Reflexed Lactate in 2 Hours Y
[2022-01-11] MEDS: METOCLOPRAMIDE 10 MG/2 ML INJ IV (18:13)
[2022-01-11 18:48] LABS: Lactate 2HR (Lactic Acid Rflx) 2.7 mmol/L (0.7-2.1)
[2022-01-11 20:07] LABS: Lactate (Lactic Acid) 2.4 mmol/L (0.7-2.1)
[2022-01-11] MEDS: metroNIDAZOLE 500 MG TABLET PO (20:45)
[2022-01-11 21:49] LABS: Reflexed Lactate in 2 Hours Y
== END 2022-01-11 20:52 | disposition home or self-care (01) ==
PROVIDERS: Emergency Medicine; Emergency Provider Emergency Medicine; Family Provider Family Medicine; PCP Family Medicine
DX: K57.32 Diverticulitis of large intestine without perforation or abscess without bleeding (principal); Z88.1 Allergy status to other antibiotic agents; Z88.0 Allergy status to penicillin; Z87.891 Personal history of nicotine dependence; Z20.822 Contact with and (suspected) exposure to COVID-19; I10 Essential (primary) hypertension
CPT/HCPCS: 36415; 71045; 74177; 80053; 81003; 81015; 82550; 82553; 83605; 83690; 84145; 84484; 85025; 87040; 87077; 87086; 87186; 87635; 93005; 93010; 96361; 96374; 96375; 96376; 99284; 99285; C9803; C9113; J1885; J2270; J2405; J2765; Q9967

== ENCOUNTER 2022-01-14 10:00 | Inpatient (IN) | payer OTHER, SELFPAY ==
[2022-01-14] VITALS (25 sets, daily range): BP systolic 94–151; BP diastolic 50–95; PULSE 73–158; RESP 11–53; TEMP 36.6–36.9; O2SAT 92–97; BMI 39.6
--- NOTE | 2022-01-14 10:27 | DI.RAD.S_ITS ---
PROCEDURE: XR CHEST 1V INDICATIONS: SOB, fatigued TECHNIQUE: One view of the chest was acquired. COMPARISON: [facility], CR, XR CHEST 1V, 01/11/2022, 15:59. FINDINGS: Surgical changes and devices: None. Lungs and pleura: Lungs are clear. No pleural effusions or pneumothorax. Mediastinum: Mediastinal contours appear normal. Heart size is normal. Bones and chest wall: No suspicious bony lesions. Overlying soft tissues appear unremarkable. IMPRESSION: No acute cardiopulmonary process demonstrated radiographically. Dictated by: Sandip Andrews M.D. on 01/14/2022 at 11:20 Approved by: Sandip Andrews M.D. on 01/14/2022 at 11:20
--- NOTE | 2022-01-14 10:29 | ED.NAVMDI ---
HPI - Nausea/Vomiting/Diarrhea General Chief complaint: Nausea/Vomiting/Diarrhea Stated complaint: vomiting, can't keep anything down, heart flutter Time Seen by Provider: 01/14/22 10:13 History of Present Illness HPI Narrative: 66-year-old female nonsmoker with history of diverticulitis and recent oral surgery per presents with a chief complaint of 2-3 days of persistent nausea and vomiting shortness of breath and palpitations. She states that her symptoms that brought her into the emergency department for evaluation of few days ago are in many ways improved. She had been having some abdominal pain and had an extensive workup which demonstrated early diverticulitis. She was discharged home with a prescription for Cipro and Flagyl as well as pain medications and antinausea medications and later that evening started developing symptoms as stated. She is fatigued and unable to keep food, drink or her routine medications down. She denies recent travel, any cardiac history including AFib nor any fever or chills Related Data Home Medications Medication Instructions Recorded Confirmed simvastatin 10 mg tablet 20 mg PO HS #0 08/09/12 04/07/21 clonazepam 0.5 mg tablet 0.5 mg PO DAILY 02/16/21 04/07/21 amlodipine 2.5 mg tablet 2.5 mg PO DAILY 03/10/21 04/07/21 losartan 25 mg tablet 25 mg PO DAILY 03/10/21 04/07/21 mirabegron 25 mg tablet,extended 25 mg PO DAILY 03/10/21 04/07/21 release 24 hr (Myrbetriq) Previous Rx's Medication Instructions Recorded lidocaine 5 % topical ointment 1 applic TOPICAL QID PRN #30 g 03/10/21 ciprofloxacin HCl 500 mg tablet 500 mg PO BID #14 tab 01/11/22 (Cipro) hydrocodone 5 mg-acetaminophen 325 1 tab PO Q6H PRN #20 tab 01/11/22 mg tablet metronidazole 500 mg tablet 500 mg PO TID #21 tab 01/11/22 promethazine 25 mg tablet 25 mg PO TID PRN #14 tab 01/11/22 Allergies Allergy/AdvReac Type Severity Reaction Status Date / Time penicillin G Allergy Intermediate Verified 04/07/21 14:43 Review of Systems Review of Systems Narrative: GENERAL: See HPI HEENT: Denies sinus pain, ear pain, sore throat, difficulty swallowing, dizziness. RESPIRATORY: See HPI CARDIOVASCULAR: See HPI GASTROINTESTINAL: See HPI : Denies dysuria, frequency, incontinence, hematuria, urinary retention. MUSCULOSKELETAL: denies weakness, joint pain, or bony pain SKIN: Denies rash, skin lesions, or other NEUROLOGIC: Denies weakness, headache, numbness, change in speech, confusion, seizures, incoordination. PSYCHIATRIC: No concerning psychosocial issues. 12 point review of systems is negative except for those stated above Patient History Social History household members: spouse Smoking Status: Never smoker alcohol intake: never Smoking Status: Never smoker Substance Use Type: marijuana Exam Narrative Exam Narrative: GENERAL: [66 year old patient appears stated age. Well-developed patient, in mild distress. HEAD: Atraumatic. Normocephalic. EYES: Dry mucous membrane Pupils equal round and reactive. Extraocular motions intact. No scleral icterus. No injection or drainage. ENT: Nose without bleeding, purulent drainage. Throat without erythema, tonsillar hypertrophy or exudate. Airway patent. NECK: Trachea midline. Non tender CARDIOVASCULAR: Tachycardic and regular rhythm without murmurs, gallops, or rubs. RESPIRATORY: Clear to auscultation. Breath sounds equal bilaterally. No wheezes, rales, or rhonchi. GASTROINTESTINAL: Abdomen soft, non-tender, nondistended. EXTREMITIES: No edema or joint tenderness. BACK: Nontender without deformity or crepitance. No flank tenderness. NEURO: AOx3. SKIN: No rash or erythema of visible areas Initial Vital Signs Initial Vital Signs: Vital Signs Temperature 98 F 01/14/22 10:13 Pulse Rate 155 H 01/14/22 10:13 Respiratory Rate 20 01/14/22 10:13 Blood Pressure 145/95 H 01/14/22 10:13 Pulse Oximetry 94 01/14/22 10:13 Course Orders Ordered: ED Orders 01/14/22 10:27 Chest [XR chest 1V] Stat EKG-12 Lead Stat 01/14/22 10:30 Complete Blood Count AUTO DIFF Stat Comprehensive Metabolic Panel Stat D Dimer Stat Magnesium Stat TSH w/ Reflex to FT4 Stat Sodium Chloride (Normal Saline 0.9%) 1,000 mls @ 1,000 mls/hr IV BOLUS ONE Stop: 01/14/22 11:26 Last Admin: 01/14/22 10:41 Dose: 1,000 mls/hr Documented by: Discontinued Medications Diltiazem HCl (Diltiazem 5 Mg/Ml Sdv) 10 mg IV NOW ONE Stop: 01/14/22 10:50 Last Admin: 01/14/22 10:56 Dose: 10 mg Documented by: Ondansetron HCl (Ondansetron 4 Mg/2 Ml Inj) 4 mg IV NOW ONE Stop: 01/14/22 10:28 Last Admin: 01/14/22 10:41 Dose: 4 mg Documented by: Pantoprazole Sodium (Pantoprazole 40 Mg Vial) 40 mg IV NOW ONE Stop: 01/14/22 10:28 Last Admin: 01/14/22 10:40 Dose: 40 mg Documented by: Reevaluation(s) Reevaluation #1: patient given Cardizem 10mg and slowed first to a 4:1 flutter and then converted to NSR Vital Signs Vital signs: Vital Signs - 8 hr 01/14/22 10:13 01/14/22 10:56 01/14/22 10:58 Temperature 98 F Pulse Rate 155 H 158 H 89 Respiratory Rate 20 18 Blood Pressure 145/95 H 145/95 H 132/67 Pulse Oximetry 94 97 MDM - Nausea/Vomiting/Diarrhea Lab Data Result diagrams: 01/14/22 10:30 01/14/22 10:30 Labs: Lab Results 01/14/22 Range/Units 10:30 WBC 14.4 H (4.5-11.0) X10^3/uL RBC 5.46 H (4.0-5.2) X10^6/uL Hgb 17.2 H (12.0-16.0) g/dL Hct 49.5 H (36-46) % MCV 90.7 (80-100) fL MCH 31.5 (26-34) PG MCHC 34.8 (30-36) % RDW 13.4 (11.6-14.8) % Plt Count 249 (150-400) X10^3/uL Neut % (Auto) 82.5 H (50-75) % Lymph % (Auto) 11.1 L (25-40) % [place] % (Auto) 5.9 (3-14) % Eos % (Auto) 0.0 L (2-4) % Baso % (Auto) 0.5 (0-2) % Neut # (Auto) 87306 H (9238-6945) /uL Lymph # (Auto) 1600 (2684-4591) /uL [place] # (Auto) 900 (0-900) /uL Eos # (Auto) 0 (0-450) /uL Baso # (Auto) 100 (0-100) /uL Discharge Plan Departure Prescriptions: No Action simvastatin 10 MG tablet 20 mg PO HS Qty: 0 0RF clonazepam 0.5 mg tablet 0.5 mg PO DAILY 0RF amlodipine 2.5 mg tablet 2.5 mg PO DAILY 0RF losartan 25 mg tablet 25 mg PO DAILY 0RF Myrbetriq 25 mg tablet extended release 24 hr 25 mg PO DAILY 0RF lidocaine 5 % ointment 1 applic topical QID PRN (Reason: pain) Qty: 30 0RF Rx Instructions: Apply to vulva 4 times a day as needed for discomfort hydrocodone-acetaminophen 5-325 mg tablet 1 tab PO Q6H PRN (Reason: pain) Qty: 20 0RF ciprofloxacin HCl [Cipro] 500 mg tablet 500 mg PO BID Qty: 14 0RF metronidazole 500 mg tablet 500 mg PO TID Qty: 21 0RF promethazine 25 mg tablet 25 mg PO TID PRN (Reason: nausea and vomiting) Qty: 14 0RF Referrals: Peter Naik DO [Primary Care Provider] -
[2022-01-14] MEDS: PANTOPRAZOLE 40 MG VIAL IV (10:40)
[2022-01-14] MEDS: ONDANSETRON 4 MG/2 ML INJ IV (10:41)
[2022-01-14] MEDS: SODIUM CHLORIDE 0.9% 1,000 ML 1000 ML IV (10:41)
[2022-01-14 10:52] LABS: Add Manual Diff / Slide Review NO; Basophils Absolute Auto 100 /uL (0-100); Basophils Percent Auto 0.5 % (0-2); Eosinophils Absolute Auto 0 /uL (0-450); Hematocrit 49.5 % (36-46); Hemoglobin 17.2 g/dL (12.0-16.0); Lymphocytes Absolute Auto 1600 /uL (1100-4500); Lymphocytes Percent Auto 11.1 % (25-40); Mean Corpuscular HGB Conc 34.8 % (30-36); Mean Corpuscular Hemoglobin 31.5 PG (26-34); Mean Corpuscular Volume 90.7 fL (80-100); Monocytes Absolute Auto 900 /uL (0-900); Monocytes Percent Auto 5.9 % (3-14); Neutrophils Absolute Auto 11900 /uL (1500-7000); Neutrophils Percent Auto 82.5 % (50-75); Platelet Count 249 X10^3/uL (150-400); Red Blood Cell Count 5.46 X10^6/uL (4.0-5.2); Red Cell Distribution Width 13.4 % (11.6-14.8); White Blood Cell Count 14.4 X10^3/uL (4.5-11.0)
[2022-01-14] MEDS: dilTIAZem 5 MG/ML SDV 10 MG IV (10:56)
[2022-01-14 11:00] LABS: Alanine Aminotransferase 34 IU/L (<35); Albumin 4.7 g/dL (3.5-5.0); Albumin Globulin Ratio 1.5 (1.0-2.8); Alkaline Phosphatase 72 U/L (38-126); Aspartate Aminotransferase 45 IU/L (14-36); BUN Creatinine Ratio 18.8 (6-22); Bilirubin Total 0.9 mg/dL (0.2-1.3); Blood Urea Nitrogen 16 mg/dL (7-17); Calcium 9.3 mg/dL (8.4-10.2); Carbon Dioxide 30 mmol/L (22-32); Chloride 94 mmol/L (98-107); Estimated Glomerular Filt Rate > 60.0 mL/min (>60); Globulin 3.2 g/dL (1.7-4.1); Glucose 172 mg/dL (80-110); HEMOLYSIS < 15 (0-50); Magnesium 1.9 mg/dL (1.6-2.3); Sodium 134 mmol/L (137-145); Total Protein 7.9 g/dL (6.3-8.2)
[2022-01-14 11:09] LABS: Potassium 2.7 mmol/L (3.4-5.1)
[2022-01-14] MEDS: POTASSIUM CHLORIDE IN WATER 10 MEQ/100 ML PIGGYBACK 100 MEQ IV ×8 (11:28→20:16)
[2022-01-14 11:42] LABS: TSH w/ Reflex to FT4 0.86 uIU/mL (0.47-4.68)
[2022-01-14 11:43] LABS: D Dimer 352 ng/mL (<230)
[2022-01-14 11:43] LABS: Appearance Urine UA CLEAR; Bilirubin Urine UA NEGATIVE (NEGATIVE); Color Urine UA YELLOW; Glucose Urine UA NEGATIVE (Negative); Ketones Urine UA 2+ (NEGATIVE); Leukocyte Esterase Urine UA NEGATIVE (NEGATIVE); Nitrite Urine UA NEGATIVE (Negative); Occult Blood Urine UA TRACE-LYSED (Negative); Protein Urine UA 1+ (Negative); Urobilinogen Urine UA 0.2 E.U./dL (0.2)
[2022-01-14 11:45] LABS: pH Urine UA 6.5 (4.5-8.0)
--- NOTE | 2022-01-14 11:51 | P.HP_ITS ---
History of Present Illness History of Present Illness Date Patient Seen: 01/14/22 Time Patient Seen: 11:52 Chief complaint: vomiting, can't keep anything down, heart flutter Narrative: This is a 66-year-old female with hypertension, hyperlipidemia and insomnia who was just diagnosed with diverticulitis 2 days ago and started on ciprofloxacin along with metronidazole. Her abdominal pain has improved but today when she woke up she was dizzy, weak, lightheaded and having palpitations. She has been vomiting regularly after taking her antibiotics for the last 2 days. Her potassium on presentation is 2.7 and she is in 2-1 atrial flutter. With 1 dose of IV diltiazem 10 mg IV push she converted to 4-1 atrial flutter and then to sinus rhythm. She was given 80 mEq of potassium chloride IV in the emergency department with a follow-up pending. She seems to have an intolerance to the metronidazole and/or ciprofloxacin despite avoiding all forms of alcohol as cautioned. Her abdominal pain has resolved. She has had no fever. She has had some chills along with the vomiting. She has no history of arrhythmia or hypokalemia in the past. Patient History Medical History (Updated 01/14/22 @ 17:09 by Benja Alexandre MD) Cannabis use disorder, mild, in controlled environment Diverticulitis Essential hypertension Hyperlipidemia Insomnia Surgical History (Updated 01/14/22 @ 17:09 by Benja Alexandre MD) No significant past surgical history Family & Social History Family History (Updated 01/14/22 @ 17:10 by Benja Alexandre MD) Father Diverticulitis Heart attack Mother Hypertension Social History: household members spouse Safety & Behavioral: Feels Safe in Current Yes Environment Been Physically Hurt or No Threatened By a Person Tobacco & Substance use: Smoking Status Never smoker alcohol intake never Substance Use Type marijuana Meds Home Medications and Allergies Home Medications Medication Instructions Recorded Confirmed Type simvastatin 10 mg tablet 20 mg PO HS #0 08/09/12 01/14/22 History clonazepam 0.5 mg tablet 0.14 mg PO DAILY 02/16/21 01/14/22 History amlodipine 2.5 mg tablet 2.5 mg PO DAILY 03/10/21 01/14/22 History losartan 25 mg tablet 25 mg PO DAILY 03/10/21 01/14/22 History ciprofloxacin HCl 500 mg tablet 500 mg PO BID #14 tab 01/11/22 01/14/22 Rx (Cipro) hydrocodone 5 mg-acetaminophen 325 1 tab PO Q6H PRN #20 tab 01/11/22 01/14/22 Rx mg tablet metronidazole 500 mg tablet 500 mg PO TID #21 tab 01/11/22 01/14/22 Rx promethazine 25 mg tablet 25 mg PO TID PRN #14 tab 01/11/22 01/14/22 Rx conjugated estrogens 0.625 mg/gram VAGINAL 01/14/22 History vaginal cream (Premarin) Allergies Allergy/AdvReac Type Severity Reaction Status Date / Time penicillin G Allergy Intermediate Verified 04/07/21 14:43 ciprofloxacin [From Cipro] AdvReac Severe Vomiting Verified 01/14/22 17:12 metronidazole [From Flagyl] AdvReac Severe Vomiting Verified 01/14/22 17:12 Review of Systems Review of Systems Narrative: Positive for vomiting, dizziness, weakness, lightheadedness, palpitations, chills. Negative for chest pain, abdominal pain, coughing, fevers, sweats, dysuria, hematuria, joint pain, rash, headaches, seizures, new allergies Exam Vital Signs (past 8 hours): - 01/14/22 10:13 01/14/22 10:56 01/14/22 10:58 Temperature 98 F Pulse Rate 155 H 158 H 89 Respiratory Rate 20 18 Blood Pressure 145/95 H 145/95 H 132/67 Pulse Oximetry 94 97 01/14/22 11:05 01/14/22 11:30 Temperature Pulse Rate 80 87 Respiratory Rate 19 18 Blood Pressure 137/73 151/75 H Pulse Oximetry 95 95 Oxygen Delivery Method Room Air Narrative Exam Narrative: Alert and oriented x3. No apparent distress. Pupils are equally round and reactive to light and accommodation Extraocular muscles are intact Sclerae are pink and nonicteric Throat is mildly reddened No lymph nodes are felt head, neck, supraclavicular area JVD is less than 6 cm No carotid bruits are heard Heart is now regular rate and rhythm without murmur Lungs are clear to auscultation bilaterally Abdomen is soft, bowel sounds positive, no organomegaly, nontender Extremities have no ankle edema Skin has no rash or jaundice Neurological exam: Deep tendon reflexes are symmetric and suppressed There is no tremor Cranial nerves 2-12 test intact Motor function is 4/5 throughout Objective Labs Result Diagrams: 01/14/22 10:30 01/14/22 10:30 Labs: Laboratory Results - last 24 hr 01/14/22 01/14/22 01/14/22 10:30 10:30 10:30 WBC 14.4 H RBC 5.46 H Hgb 17.2 H Hct 49.5 H MCV 90.7 MCH 31.5 MCHC 34.8 RDW 13.4 Plt Count 249 Neut % (Auto) 82.5 H Lymph % (Auto) 11.1 L [place] % (Auto) 5.9 Eos % (Auto) 0.0 L Baso % (Auto) 0.5 Neut # (Auto) 42888 H Lymph # (Auto) 1600 [place] # (Auto) 900 Eos # (Auto) 0 Baso # (Auto) 100 D-Dimer Sodium 134 L Potassium 2.7 L* Chloride 94 L Carbon Dioxide 30 BUN 16 Creatinine 0.85 Estimated GFR > 60.0 BUN/Creatinine Ratio 18.8 Glucose 172 H Calcium 9.3 Magnesium 1.9 Total Bilirubin 0.9 AST 45 H ALT 34 Alkaline Phosphatase 72 Total Protein 7.9 Albumin 4.7 Globulin 3.2 Albumin/Globulin Ratio 1.5 TSH 0.86 Urine Color Urine Appearance Urine pH Ur Specific [place] Urine Protein Urine Glucose (UA) Urine Ketones Urine Occult Blood Urine Nitrate Urine Bilirubin Urine Urobilinogen Ur Leukocyte Esterase 01/14/22 01/14/22 10:30 11:30 WBC RBC Hgb Hct MCV MCH MCHC RDW Plt Count Neut % (Auto) Lymph % (Auto) [place] % (Auto) Eos % (Auto) Baso % (Auto) Neut # (Auto) Lymph # (Auto) [place] # (Auto) Eos # (Auto) Baso # (Auto) D-Dimer 352 H Sodium Potassium Chloride Carbon Dioxide BUN Creatinine Estimated GFR BUN/Creatinine Ratio Glucose Calcium Magnesium Total Bilirubin AST ALT Alkaline Phosphatase Total Protein Albumin Globulin Albumin/Globulin Ratio TSH Urine Color Yellow Urine Appearance Clear Urine pH 6.5 Ur Specific [place] 1.010 Urine Protein 1+ H Urine Glucose (UA) Negative Urine Ketones 2+ H Urine Occult Blood Trace-lysed Urine Nitrate Negative Urine Bilirubin Negative Urine Urobilinogen 0.2 Ur Leukocyte Esterase Negative Assessment & Plan Assessment & Plan narrative: This is a 66-year-old female with hypertension, hyperlipidemia and insomnia who was just diagnosed with diverticulitis 2 days ago and started on ciprofloxacin along with metronidazole. Her abdominal pain has improved but today when she woke up she was dizzy, weak, lightheaded and having palpitations. She has been vomiting regularly after taking her antibiotics for the last 2 days. Her potassium on presentation is 2.7 and she is in 2-1 atrial flutter. Atrial flutter, present on admission. Active. -secondary to hypokalemia and excessive vomiting -converted with single IV dose of 10 mg diltiazem approximately 6 hours after onset of palpitations -follow on telemetry and replace potassium as indicate Hypokalemia, present on admission. Active. -supplemented with 80 mEq IV in the emergency department -recheck BMP in the afternoon and then follow again in the morning. Nausea and vomiting, present on admission. Active. -expected to resolve by holding antibiotics -ondansetron as needed -no prior history of THC related cyclic vomiting but that could certainly be contributing. Ciprofloxacin/metronidazole intolerant, present on admission. Active. -added to intolerance list. Unfortunately it is not clear which antibiotic produced the reaction although metronidazole is most suspect. Acute diverticulitis, present on admission. Active. -stop metronidazole and ciprofloxacin -Ceftriaxone and Clindamycin IV started. Has a PCN allergy. Hypertension, present admission. Chronic. -amlodipine, losartan Hyperlipidemia, present on admission. Chronic. -simvastatin Insomnia, present on admission. Chronic. -holding clonazepam Time Spent With Patient Critical Care time: I spent a total of [] minutes of critical care time on this patient's care today; this time is exclusive of procedural time.
--- NOTE | 2022-01-14 11:56 | PC.NURSE ---
dr vann at bedside, report given to ronald acu. pt ivf and potassium iv paused and clamped for transfer
[2022-01-14 11:58] LABS: Bacteria Urine None Seen; Culture Indicated Urine Cult Not Indicated; RBC Urine 0-1/HPF (0-5/HPF); Squamous Epithelial Cell Urine 0-1 /HPF (0-5/HPF); WBC Urine 0-1/HPF (0-5/HPF)
[2022-01-14 12:18] LABS: COVID19 -Nasal RAPID Negative (Negative)
--- NOTE | 2022-01-14 15:35 | PT.IIE ---
Current Diagnoses Vomiting, unspecified (01/14/22) Physical Therapy Inpatient Evaluation/Re-Eval M1 PT/OT-IP Prior Functional Status Start: 01/14/22 16:36 Freq: NEEDED Status: Active Protocol: Document 01/14/22 15:35 AB (Rec: 01/14/22 16:54 AB [id number]) Medical Review Prior Functional Status Medical History Reviewed Yes Communication able to make needs known Mobility and Gait pt stated that she is independent with all mobilities and ambulation without AD Social History Household Members spouse Living Arrangements House Number of Floors (Floors) Two Floors Number of Stairs To Enter/Railing? one step to enter from the garage 13 steps B rails down to basement where her bedroom is Home Environment Standard Height Toilet,Walk in Shower,Tub/Shower Home Equipment Hand Held Shower,Grab Bars Near Toilet,Grab Bars In Shower M2 PT-IP Current Condition Start: 01/14/22 16:36 Freq: NEEDED Status: Active Protocol: Document 01/14/22 15:35 AB (Rec: 01/14/22 16:54 AB [id number]) Physical Therapy Current Condition Current Condition Evaluation Date 01/14/22 Treatment Diagnosis diverticulitis; difficulty in walking Onset Date 01/14/22 M3 PT-IP Subjective Start: 01/14/22 16:36 Freq: NEEDED Status: Active Protocol: Document 01/14/22 15:35 AB (Rec: 01/14/22 16:54 AB [email or web address]) Subjective Physical Therapy Visit Type Type Initial Evaluation Visit Start Time 15:35 Visit Stop Time 16:06 Total Visit Minutes 31 Notes pt with potassium level of 2.7 . cleared pt to do PT today. Number of ROBOTICS TESTING TECHNICIAN Visits 0 Physical Therapy Visit Comments Patient Comments agreeable to do PT Therapy Pain Assessment Pain Present Pain Present Denied Pain M4 PT-IP Mobility and Gait Start: 01/14/22 16:36 Freq: NEEDED Status: Active Protocol: Document 01/14/22 15:35 AB (Rec: 01/14/22 16:54 AB [id number]) PT-Bed Mobility Assessment Supine to Sit Supine to Sit Independent PT-Transfer Assessment Sit to and From Stand Sit to and from Stand Independent Equipment Transfer Assistive Device None Orthotic/Prosthetic Devices or Brace: No Transfers Transfer Destination Chair Transfer Technique ambulated Transfer Ability Level of Assist Independent Comments Mobility Comments completed supine to sit independent. pt without c/o dizziness. completed sit to stand independent adn ambulated in room without AD independent. presents with antalgic gait but without LOB. pt sat on chair. pt got up to use the toilet independently and was able to ambulate to the sink and completed handwashing. completed up/down step stool without AD SBA and up/down using L rail SBA. pt wants to stay up on chair. positioned table and call light next to pt. informed pt that no PT needs at this time and agreed. informed nurse that pt is at PLOF and no further PT intervention needed. Gait Assessment Gait Gait Assistance Required: Independent Able to Maintain Weight Bearing Status Yes During Gait Assistive Devices Assistive Device None Orthotic/Prosthetic Devices or Brace: Yes Gait Deviations General Gait Pattern Antalgic Stair Climbing Assessment Evaluation Level of Assist On Stairs Standby Assistance Devices Stair Climbing Assistive Devices None,Left Railing Technique/Endurance Stair Climbing Technique Step to Step Number of Steps Climbed 1 Query Text: Stair Climbing Set # Repetitions (reps) 2 Comments Stair Climbing Comments pls refer to mobility section for details PT-Balance Assessment Sitting Balance and Reactions Static Sitting Balance Ability Normal Dynamic Sitting Balance Ability Normal Standing Balance and Reactions Static Standing Balance Ability Good Dynamic Standing Balance Ability Good Device Used without AD M5 PT-IP Objective Assessments Start: 01/14/22 16:36 Freq: NEEDED Status: Active Protocol: Document 01/14/22 15:35 AB (Rec: 01/14/22 16:54 AB [id number]) Orientation Orientation/Cognition Level of Alertness Alert Orientation Name,Age,Birthday,Month,Date, Year,Day of Week,Place, Situation Language Function Ability No Deficits Noted Safety Awareness Understands Safety Issues Memory Description No Deficits Noted Gross Range of Motion Lower Extremity ROM Assessment Within Functional Limits Strength Lower Extremity Strength Assessment Within Functional Limits Coordination Assessment Gross Coordination Gross Coordination WNL Muscle Tone Muscle Tone WNL Yes M6 PT-IP Treatment Start: 01/14/22 16:36 Freq: NEEDED Status: Active Protocol: Document 01/14/22 15:35 AB (Rec: 01/14/22 16:54 AB [email or web address]) Physical Therapy Treatment Education Education Provided Safety M7 PT-IP Assessment and Plan Start: 01/14/22 16:36 Freq: NEEDED Status: Active Protocol: Document 01/14/22 15:35 AB (Rec: 01/14/22 16:54 AB [id number]) PT Summary Assessment and Plan Potential Status of Condition at Evaluation Stable Summary Assessment Summary PT eval completed and no further PT indicated at this time. pt can be indepdent in room without AD. Encourage pt to ambulate as much as she can and to inform the nurse for safety. pt agreed. informed nurse that pt does not need PT. pt lives with spouse and spouse can assist if needed. Frequency of Treatment Frequency Of Treatment Discharge Recommendations To Nursing Amount of Assist Needed Independent Discharge Recommendations PT Discharge Recommendations Home Transportation Needs at Discharge Private Vehicle
[2022-01-14] MEDS: SODIUM CHLORIDE 0.9% 1,000 ML 100 ML IV (16:14)
[2022-01-14 17:49] LABS: BUN Creatinine Ratio 19.8 (6-22); Blood Urea Nitrogen 16 mg/dL (7-17); Calcium 9.7 mg/dL (8.4-10.2); Carbon Dioxide 31 mmol/L (22-32); Chloride 99 mmol/L (98-107); Estimated Glomerular Filt Rate > 60.0 mL/min (>60); Glucose 147 mg/dL (80-110); HEMOLYSIS 17 (0-50); Potassium 3.2 mmol/L (3.4-5.1); Sodium 136 mmol/L (137-145)
--- NOTE | 2022-01-14 18:32 | PC.NURSE ---
Pt arrived from ED at approx 1210. A/O. Denies pain, chest pain, pressure, palpitations or dizziness. Ambulated to bathroom, steady on feet. IV K+ infusing per orders. At approx 1745 this underwriter mortgage loan rec call from AUTOMOBILE RADIO REPAIRER monitoring Telemetry stating pt was having multiple PVCs. At 1806 Vtach for 37 secs, followed by Torsades for 39 secs. Provider notified. Per provider transfer to ICU for higher level of care. R.T. called for EGK. Upon assessment of pt, pt denies symptoms. Transferred to ICU. Pt transferred with all personal belongings. Hand-off report given to AUTOMOBILE RADIO REPAIRER.
[2022-01-14 18:36] LABS: Hemoglobin A1C% w Est Avg Glu 5.4 % (4.0-6.0)
[2022-01-14] MEDS: MAGNESIUM SULFATE 2 GM/50 ML PIGGYBACK IV (18:36)
[2022-01-14] MEDS: CLINDAMYCIN 600 MG/50 ML PIGGYBACK 50 MG IV (18:55)
[2022-01-14] MEDS: cefTRIAXone 1,000 MG in SODIUM CHLORIDE 0.9% 100 ML 200 ML IV (18:56)
--- NOTE | 2022-01-14 19:38 | PC.NURSE ---
Rec'd Pt from room 205 after witnessed Torsades epidsode. Pt did not have chest fluttering or pain at that time. SA with some pauses. Tele in place. bedrest.
--- NOTE | 2022-01-14 20:41 | PC.NURSE ---
Addendum entered by Peri Hopkins R.N. 01/15/22 06:18: MEETA Nam notified that patient had an additional run of accelerated idioventricular rhythm. Discussed Potassium level at 3.2. Orders received for oral Potassium replacement. Discuss with provider that patients HR up to 130 when OOB to BSC and this was the first time tonight that this was observed. Patient's HR returned to 70-80's with return to bed. Patient continues to deny chest pain. MEETA Nam aware that frederick Troponin 0.027 currently. Oral Potassium supplement given. Addendum entered by Peri Hopkins R.N. 01/15/22 04:51: Patient denies chest pain and abdominal pain. Patient had run of accelerated ventricular rhythm. [place] TIM notified. Order for Troponin received. BP 98/60. Addendum entered by Peri Hopkins R.N. 01/15/22 01:12: Patient denies chest pain, and abdominal pain. States that she is comfortable. Remains in SR, Rate 73. BP 106/62 Addendum entered by Peri Hopkins R.N. 01/14/22 23:22: K+ level rechecked at 2230 and K+ up to 3.4. Patient denies any chest pain, nausea or vomiting. Pt steady on feet with [place] [facility] [place], HR 73 BP 94/50, R side lying. Pt voiding clear yellow urine and returned to bed. Original Note: Patient denies chest pain and nausea at this time. Eighth K+ rider infusing at this time. Currently in SR, Rate 80 with occasional dropped beat with p wave that is not followed by a QRS. Assessment completed. Dr. Recinos notified of patient's admission to ICU, and patient's history and current status discussed.
[2022-01-14] MEDS: ATORVASTATIN 20 MG TABLET 10 MG PO (21:48)
--- NOTE | 2022-01-14 22:30 | PM.CN.EICU ---
History of Present Illness Consult details Chief complaint: vomiting, can't keep anything down, heart flutter :: This patient was seen in the Intensive Care Unit via real time interactive two-way audiovisual telecommunication. Narrative: 66 y.o. female w/ PMHx of HTN and hyperlipidemia who presented to the ED with palpiatations, She was in atrial fibrillation in the 150s. She was given diltiazem 10 mg IVP with a change to 4:1 atrial flutter and then NSR. She also reported nausea and vomiting that started after metronidazole and ciprofloxacin was started for diverticulitis. Her initial K+ was also 2.7. Social history is also notable THC use. [facility] Medical History Cannabis use disorder, mild, in controlled environment Diverticulitis Essential hypertension Hyperlipidemia Insomnia Surgical History No significant past surgical history Family History Father Diverticulitis Heart attack Mother Hypertension Social History household members: spouse Smoking Status: Former smoker alcohol intake: never Current Medications Current Medications Medications: Home Medications simvastatin 10 mg tablet 20 mg PO HS #0 08/09/12 [History Confirmed 01/14/22] clonazepam 0.5 mg tablet 0.14 mg PO DAILY 02/16/21 [History Confirmed 01/14/22] amlodipine 2.5 mg tablet 2.5 mg PO DAILY 03/10/21 [History Confirmed 01/14/22] losartan 25 mg tablet 25 mg PO DAILY 03/10/21 [History Confirmed 01/14/22] ciprofloxacin HCl 500 mg tablet (Cipro) 500 mg PO BID #14 tab 01/11/22 [Rx Confirmed 01/14/22] hydrocodone 5 mg-acetaminophen 325 mg tablet 1 tab PO Q6H PRN #20 tab 01/11/22 [Rx Confirmed 01/14/22] metronidazole 500 mg tablet 500 mg PO TID #21 tab 01/11/22 [Rx Confirmed 01/14/22] promethazine 25 mg tablet 25 mg PO TID PRN #14 tab 01/11/22 [Rx Confirmed 01/14/22] conjugated estrogens 0.625 mg/gram vaginal cream (Premarin) VAGINAL 01/14/22 [History] Visit Medications (administered) Generic Name Dose Route Start Last Admin Trade Name Nu PRN Reason Stop Dose Admin Atorvastatin Calcium 10 mg 01/14/22 21:00 01/14/22 21:48 Atorvastatin 20 Mg Tablet PO 10 mg BEDTIME RODRIGUEZ Administration Sodium Chloride 1,000 mls @ 100 mls/hr 01/14/22 11:45 01/14/22 16:14 Normal Saline 0.9% IV 100 mls/hr CONT RODRIGUEZ Administration Ceftriaxone Sodium 1,000 mg/ 100 mls @ 200 mls/hr 01/14/22 17:30 01/14/22 18:56 Sodium Chloride IV 200 mls/hr Q24H RODRIGUEZ Administration Clindamycin Phosphate 600 mg in 50 mls @ 50 mls/hr 01/14/22 17:25 01/14/22 19:55 Cleocin IV Infused Q8H RODRIGUEZ Infusion Review of Systems Review of Systems Narrative: Not performed as patient is sleeping Exam Vital Signs (past 8 hours): - 01/14/22 18:16 01/14/22 18:19 01/14/22 18:21 Temperature 98.3 F 98.4 F Pulse Rate 89 80 80 Respiratory Rate 22 14 16 Blood Pressure 111/64 97/71 97/71 Pulse Oximetry 93 96 96 01/14/22 18:30 01/14/22 18:42 01/14/22 19:00 Temperature Pulse Rate 81 78 99 H Respiratory Rate 21 20 30 H Blood Pressure 96/69 Pulse Oximetry 94 95 01/14/22 19:01 01/14/22 19:30 01/14/22 20:00 Temperature Pulse Rate 108 H 76 79 Respiratory Rate 53 H 21 16 Blood Pressure 115/83 Pulse Oximetry 95 93 01/14/22 20:03 01/14/22 20:06 01/14/22 20:30 Temperature 98 F Pulse Rate 74 74 Respiratory Rate 14 25 H Blood Pressure 113/64 113/64 Pulse Oximetry 96 97 01/14/22 21:00 01/14/22 21:30 01/14/22 22:00 Temperature Pulse Rate 83 75 73 Respiratory Rate 22 17 17 Blood Pressure 123/68 102/60 Pulse Oximetry 96 95 94 Oxygen Delivery Method Room Air Oxygen Flow Rate 0 Resp Effort & Inspection: normal respiratory effort Cardio Rate: regular rate Rhythm: regular rhythm Other: No active vasoacitive infusions Objective Labs Result Diagrams: 01/14/22 10:30 01/14/22 17:20 Labs: Laboratory Results - last 24 hr 01/14/22 01/14/22 01/14/22 10:30 10:30 10:30 WBC 14.4 H RBC 5.46 H Hgb 17.2 H Hct 49.5 H MCV 90.7 MCH 31.5 MCHC 34.8 RDW 13.4 Plt Count 249 Neut % (Auto) 82.5 H Lymph % (Auto) 11.1 L [place] % (Auto) 5.9 Eos % (Auto) 0.0 L Baso % (Auto) 0.5 Neut # (Auto) 61203 H Lymph # (Auto) 1600 [place] # (Auto) 900 Eos # (Auto) 0 Baso # (Auto) 100 D-Dimer Sodium 134 L Potassium 2.7 L* Chloride 94 L Carbon Dioxide 30 BUN 16 Creatinine 0.85 Estimated GFR > 60.0 BUN/Creatinine Ratio 18.8 Glucose 172 H Hemoglobin A1c Calcium 9.3 Magnesium 1.9 Total Bilirubin 0.9 AST 45 H ALT 34 Alkaline Phosphatase 72 Total Protein 7.9 Albumin 4.7 Globulin 3.2 Albumin/Globulin Ratio 1.5 TSH 0.86 Urine Color Urine Appearance Urine pH Ur Specific [place] Urine Protein Urine Glucose (UA) Urine Ketones Urine Occult Blood Urine Nitrate Urine Bilirubin Urine Urobilinogen Ur Leukocyte Esterase Urine RBC Urine WBC Ur Squamous Epith Cells Urine Bacteria Ur Culture Indicated? SARS-CoV-2 (PCR) 01/14/22 01/14/22 01/14/22 10:30 10:30 11:17 WBC RBC Hgb Hct MCV MCH MCHC RDW Plt Count Neut % (Auto) Lymph % (Auto) [place] % (Auto) Eos % (Auto) Baso % (Auto) Neut # (Auto) Lymph # (Auto) [place] # (Auto) Eos # (Auto) Baso # (Auto) D-Dimer 352 H Sodium Potassium Chloride Carbon Dioxide BUN Creatinine Estimated GFR BUN/Creatinine Ratio Glucose Hemoglobin A1c 5.4 Calcium Magnesium Total Bilirubin AST ALT Alkaline Phosphatase Total Protein Albumin Globulin Albumin/Globulin Ratio TSH Urine Color Urine Appearance Urine pH Ur Specific [place] Urine Protein Urine Glucose (UA) Urine Ketones Urine Occult Blood Urine Nitrate Urine Bilirubin Urine Urobilinogen Ur Leukocyte Esterase Urine RBC Urine WBC Ur Squamous Epith Cells Urine Bacteria Ur Culture Indicated? SARS-CoV-2 (PCR) Negative 01/14/22 01/14/22 01/14/22 11:30 17:20 17:20 WBC RBC Hgb Hct MCV MCH MCHC RDW Plt Count Neut % (Auto) Lymph % (Auto) [place] % (Auto) Eos % (Auto) Baso % (Auto) Neut # (Auto) Lymph # (Auto) [place] # (Auto) Eos # (Auto) Baso # (Auto) D-Dimer Sodium 136 L Potassium 3.2 L Chloride 99 Carbon Dioxide 31 BUN 16 Creatinine 0.81 Estimated GFR > 60.0 BUN/Creatinine Ratio 19.8 Glucose 147 H Hemoglobin A1c Calcium 9.7 Magnesium 2.0 Total Bilirubin AST ALT Alkaline Phosphatase Total Protein Albumin Globulin Albumin/Globulin Ratio TSH Urine Color Yellow Urine Appearance Clear Urine pH 6.5 Ur Specific [place] 1.010 Urine Protein 1+ H Urine Glucose (UA) Negative Urine Ketones 2+ H Urine Occult Blood Trace-lysed Urine Nitrate Negative Urine Bilirubin Negative Urine Urobilinogen 0.2 Ur Leukocyte Esterase Negative Urine RBC 0-1/hpf Urine WBC 0-1/hpf Ur Squamous Epith Cells 0-1 /hpf Urine Bacteria None seen Ur Culture Indicated? Cult not indicated SARS-CoV-2 (PCR) Assessment & Plan Assessment and plan (1) Atrial fibrillation, transient: Status: Acute Plan: -PRN diltiazem -Would avoid QTc prolonging med given hypoK+ (2) Diverticulitis: Status: Acute Plan: -Continue ceftriaxone/clindamycin as per bedside team (3) Acute hypokalemia: Status: Acute Plan: -Continue correction (4) Hypertension: Status: Acute Plan: -Continue amlodipine/losartan (5) Hyperlipidemia: Status: Acute Plan: -Lipitor (6) Hypokalemia: Status: Acute
[2022-01-14 22:49] LABS: HEMOLYSIS < 15 (0-50); Potassium 3.4 mmol/L (3.4-5.1)
[2022-01-15] VITALS (40 sets, daily range): BP systolic 90–128; BP diastolic 50–77; PULSE 69–134; RESP 14–43; TEMP 36.7–36.9; O2SAT 91–96
[2022-01-15] MEDS: CLINDAMYCIN 600 MG/50 ML PIGGYBACK 50 MG IV ×3 (00:59→17:38)
[2022-01-15] MEDS: SODIUM CHLORIDE 0.9% 1,000 ML 100 ML IV (04:17)
[2022-01-15 05:04] LABS: Add Manual Diff / Slide Review NO; Basophils Absolute Auto 100 /uL (0-100); Basophils Percent Auto 0.7 % (0-2); Eosinophils Absolute Auto 100 /uL (0-450); Eosinophils Percent Auto 0.8 % (2-4); Hematocrit 42.4 % (36-46); Hemoglobin 14.4 g/dL (12.0-16.0); Lymphocytes Absolute Auto 2800 /uL (1100-4500); Lymphocytes Percent Auto 32.4 % (25-40); Mean Corpuscular HGB Conc 33.9 % (30-36); Mean Corpuscular Hemoglobin 31.2 PG (26-34); Mean Corpuscular Volume 92.1 fL (80-100); Monocytes Absolute Auto 800 /uL (0-900); Monocytes Percent Auto 9.4 % (3-14); Neutrophils Absolute Auto 5000 /uL (1500-7000); Neutrophils Percent Auto 56.7 % (50-75); Platelet Count 185 X10^3/uL (150-400); Red Cell Distribution Width 13.5 % (11.6-14.8); White Blood Cell Count 8.8 X10^3/uL (4.5-11.0)
[2022-01-15 05:15] LABS: BUN Creatinine Ratio 18.9 (6-22); Blood Urea Nitrogen 14 mg/dL (7-17); Calcium 8.2 mg/dL (8.4-10.2); Carbon Dioxide 29 mmol/L (22-32); Chloride 106 mmol/L (98-107); Estimated Glomerular Filt Rate > 60.0 mL/min (>60); Glucose 106 mg/dL (80-110); HEMOLYSIS < 15 (0-50); Potassium 3.2 mmol/L (3.4-5.1); Sodium 137 mmol/L (137-145)
[2022-01-15 05:27] LABS: Troponin I 0.027 ng/mL (0.01-0.034)
[2022-01-15] MEDS: POTASSIUM CHLORIDE 20 MEQ TAB 40 MEQ PO ×3 (05:48→15:15)
[2022-01-15 05:49] LABS: Magnesium 2.4 mg/dL (1.6-2.3)
--- NOTE | 2022-01-15 06:27 | PM.CALLCOV.1 ---
Call Coverage Note Note Date of Patient Contact: 01/15/22 Narrative of Care Provided: Potassium came at 3.2, was given 40 mEq po X 1. End of shift d/c'd IVF as she is taking in adequate PO. Mag is 2.2, not repleted.
[2022-01-15] MEDS: SODIUM CHLORIDE 0.9% FLUSH 10 ML IV ×2 (06:34→09:55)
--- NOTE | 2022-01-15 09:15 | DI.ECHO.S_ITS ---
[place] +---------+ [facility] +---------+ : : [address] : : : : [id number] : : : : Phone: [phone] Echocardiogram Report + + :Name: GABBIE CAMPOS Study Date: 01/15/2022 Height: 62 in : :[facility] ReadingLocation: Weight: 217 lb : : Gender: Female BSA: 2.0 m2 : :: 1955 Age: 66 yrs BP: 108/58 mmHg: :Reason For Study: ATRIAL FLUTTER : :Ordering Physician: MIKA, : :SESAR Performed By: Pam Mirza : :Referring: SESAR BRENNAN : + + Interpretation Summary 1) Normal left ventricular thickness, size, wall motion, and systolic function (EF 60-65%). 2) Normal right ventricular size and function. 3) No significant valvular abnormalities. 4) No prior Echo available for comparison. Procedure: A two-dimensional transthoracic echocardiogram with color flow and Doppler was performed. The study quality was technically adequate. There is no prior echocardiogram noted for this patient. The patient was in sinus rhythm with heart rates between 71-80 bpm during the exam. Left Ventricle: The left ventricle is normal in size and wall thickness. The ejection fraction is estimated to be 60-65%. Left ventricular systolic function appears normal without focal wall motion abnormalities. Diastolic parameters suggest a relaxation abnormality of the left ventricle, consistent with probable normal filling pressures. Right Ventricle: The right ventricle is normal in size and function. Atria: The left atrial size is normal. Right atrial size is normal. There is no Doppler evidence for an interatrial shunt. Mitral Valve: The mitral valve is normal in structure and function. There is trace mitral regurgitation. Aortic Valve: The aortic valve is trileaflet. The aortic valve opens well. There is no aortic valve stenosis. No aortic regurgitation is present. Tricuspid Valve: The tricuspid valve is normal in structure and function. There is a trace or physiologic amount of tricuspid regurgitation. Pulmonary artery pressures cannot be estimated because of the lack of a measurable TR jet velocity. Pulmonic Valve: The pulmonic valve leaflets are thin and pliable; valve motion is normal. There is no pulmonic valvular regurgitation. Great Vessels: The aortic root is normal size. The dimensions of the ascending aorta are normal. The IVC is of normal diameter and collapses greater than 50% with a sniff. This suggests a low right atrial pressure of 3 mm Hg. Pericardium/ Pleura There is no pericardial effusion. There is no pleural effusion. MMode/2D Measurements & Calculations LVIDd: 5.3 cm LVOT diam: 2.0 cm LVIDs: 3.4 cm Ao root diam: 2.7 cm FS: 36.1 % asc Aorta Diam: 2.8 cm IVSd: 0.83 cm Ao Arch Diam (Prox Trans): 2.5 cm LVPWd: 0.74 cm LV conn. diameter/BSA (cm/m^2): 2.7 LV sys. diameter/BSA (cm/m^2): 1.7 LA A2 area: 19.6 cm2 RA long axis: 4.5 cm LA A4 area: 15.1 cm2 RA area: 11.7 cm2 LA length (vol): 5.1 cm RA vol: 25.7 ml LA vol: 48.7 ml RA : 13.0 ml/m2 LA vol index: 24.6 ml/m2 IVC diam: 0.91 cm RVD1 (basal): 2.5 cm TAPSE: 1.9 cm Doppler Measurements & Calculations Ao V2 max: 151.8 cm/sec LVOT Max Deon: 110.8 cm/sec Ao V2 mean: 101.1 cm/sec LV V1 max P.9 mmHg Ao max P.2 mmHg LV V1 VTI: 20.2 cm Ao mean P.7 mmHg ZELALEM(I,D): 2.6 cm2 Ao V2 VTI: 23.1 cm ZELALEM(V,D): 2.2 cm2 sev ratio: 0.88 ZELALEM indexed to BSA (cm^2/m^2): 1.3 MV E max deon: 50.6 cm/sec PA V2 max: 66.6 cm/sec MV A max deon: 75.6 cm/sec PA V2 mean: 46.4 cm/sec MV E/A: 0.67 PA mean P.96 mmHg Med Peak E' Deon: 6.0 cm/sec PA pr(Accel): 34.5 mmHg E/E' med: 8.4 Lat Peak E' Deon: 8.2 cm/sec E/E' lat: 6.2 E/e' average: 7.3 MV dec time: 0.24 sec SV(LVOT): 61.0 ml Reading Physician:01:30 PM
--- NOTE | 2022-01-15 09:27 | CM.DANOTE ---
DCP: Case received, EMR reviewed and met with patient. Introduced self and role. Was able to obtain information regarding patient's baseline activity level at home prior to hospitalization. DCP assessment completed with information currently available. Patient is a 66 year old female who admitted yesterday morning to the care of the hospitalist team. PCP: Dr. Naik. Payer: confirmed: [facility]. Patient came to the hospital via private vehicle secondary to having nausea and vomiting. According to notes, patient was just diagnoses with diverticulitis about 2 days ago. Patient had exhibited symptoms of dizziness, weakness, as well as heart palpitations. She holds current diagnosis of atrial flutter and hypokalemia. Met with patient in her room. She is alert and oriented, pleasant. She resides in [place] with her spouse, Stefan. She is independent at her baseline. P: DCP to continue to follow for any needs. Patient should be able to go home when she is deemed medically stable. Agueda Busby RN/Belt Press Operator Discharge Planning/Care Management CM Discharge Assessment Start: 01/15/22 09:25 Freq: Status: Active Protocol: Document 01/15/22 09:25 (Rec: 01/15/22 09:26 [id number]) Discharge Planning Assessment Assigned Director Of Physician Practices Agueda Busby RN/Belt Press Operator Advance Directives? No History Provided By Patient,Medical Record Prior Living Arrangements House Household Members spouse Type of transporation used prior to Drives own vehicle admit Independent with ADL's Yes Is patient alert and oriented? Yes Caregiver for Another No Barriers to Discharge No Discharge Plan Home Transportation Arrangement Spouse Referrals Initiated None needed Whiteboard Updated in Patient Room with Yes name and ext. # of Director Of Physician Practices Review Status In Process Next Review Type Continued Stay Review
[2022-01-15] MEDS: AMLODIPINE 5 MG TABLET 2.5 MG PO (09:55)
[2022-01-15] MEDS: HYDROCODONE/ACET 5/325 TABLET 1 TAB PO (09:56)
[2022-01-15] MEDS: LOSARTAN 25 MG TABLET PO (09:56)
--- NOTE | 2022-01-15 14:15 | PM.PN.1 ---
Subjective Subjective Date Patient Seen: 01/15/22 Time Patient Seen: 08:00 Interval history: Today she has no complaints. No nausea, vomiting. No further palpitations Exam Vital Signs (past 8 hours): - 01/15/22 06:30 01/15/22 07:00 01/15/22 07:30 Pulse Rate 83 78 81 Respiratory Rate 18 23 23 Blood Pressure 108/58 L Pulse Oximetry 96 94 93 01/15/22 08:00 01/15/22 08:30 01/15/22 09:00 Pulse Rate 78 98 H 88 Respiratory Rate 20 26 H 21 Blood Pressure 100/57 L Pulse Oximetry 94 95 94 01/15/22 09:01 01/15/22 09:30 01/15/22 09:56 Pulse Rate 92 H 91 H 90 Respiratory Rate 30 H 34 H Blood Pressure 115/70 115/70 Pulse Oximetry 95 96 01/15/22 10:00 01/15/22 10:30 01/15/22 11:00 Pulse Rate 93 H 80 86 Respiratory Rate 37 H 43 H 23 Blood Pressure 113/70 Pulse Oximetry 95 95 95 01/15/22 11:01 01/15/22 11:30 01/15/22 12:00 Pulse Rate 97 H 86 83 Respiratory Rate 25 H 30 H 25 H Blood Pressure 128/71 124/77 Pulse Oximetry 95 96 95 01/15/22 12:30 Pulse Rate 91 H Respiratory Rate 20 Blood Pressure Pulse Oximetry 95 Oxygen Delivery Method Room Air Oxygen Flow Rate 0 Narrative Exam Narrative: GEN: no acute distress CV: regular rate and rhythm PULM: clear bilaterally Objective Labs Result Diagrams: 01/15/22 04:53 01/15/22 04:53 Labs: Laboratory Results - last 24 hr 01/14/22 01/14/22 01/14/22 10:30 17:20 17:20 WBC RBC Hgb Hct MCV MCH MCHC RDW Plt Count Neut % (Auto) Lymph % (Auto) Sampson % (Auto) Eos % (Auto) Baso % (Auto) Neut # (Auto) Lymph # (Auto) Sampson # (Auto) Eos # (Auto) Baso # (Auto) Sodium 136 L Potassium 3.2 L Chloride 99 Carbon Dioxide 31 BUN 16 Creatinine 0.81 Estimated GFR > 60.0 BUN/Creatinine Ratio 19.8 Glucose 147 H Hemoglobin A1c 5.4 Calcium 9.7 Magnesium 2.0 Troponin I 01/14/22 01/15/22 01/15/22 22:31 04:53 04:53 WBC 8.8 RBC 4.60 Hgb 14.4 Hct 42.4 MCV 92.1 MCH 31.2 MCHC 33.9 RDW 13.5 Plt Count 185 Neut % (Auto) 56.7 D Lymph % (Auto) 32.4 D Sampson % (Auto) 9.4 Eos % (Auto) 0.8 L Baso % (Auto) 0.7 Neut # (Auto) 5000 Lymph # (Auto) 2800 Sampson # (Auto) 800 Eos # (Auto) 100 Baso # (Auto) 100 Sodium 137 Potassium 3.4 3.2 L Chloride 106 Carbon Dioxide 29 BUN 14 Creatinine 0.74 Estimated GFR > 60.0 BUN/Creatinine Ratio 18.9 Glucose 106 Hemoglobin A1c Calcium 8.2 L Magnesium Troponin I 01/15/22 01/15/22 04:53 04:53 WBC RBC Hgb Hct MCV MCH MCHC RDW Plt Count Neut % (Auto) Lymph % (Auto) Sampson % (Auto) Eos % (Auto) Baso % (Auto) Neut # (Auto) Lymph # (Auto) Sampson # (Auto) Eos # (Auto) Baso # (Auto) Sodium Potassium Chloride Carbon Dioxide BUN Creatinine Estimated GFR BUN/Creatinine Ratio Glucose Hemoglobin A1c Calcium Magnesium 2.4 H Troponin I 0.027 [facility] Medical History Cannabis use disorder, mild, in controlled environment Diverticulitis Essential hypertension Hyperlipidemia Insomnia Surgical History No significant past surgical history Family History Father Diverticulitis Heart attack Mother Hypertension Social History household members: spouse Smoking Status: Former smoker alcohol intake: never Assessment & Plan Assessment & Plan narrative: 66W with recent diagnosis diverticulitis presenting with vomiting, hypokalemia found to be in atrial flutter and briefly Torsades. regularly after taking her antibiotics for the last 2 days.? Her potassium on presentation is 2.7 and she is in 2-1 atrial flutter. Atrial flutter, Torsades -secondary to hypokalemia and excessive vomiting -PRN diltiazem -follow on telemetry and replace potassium as indicate -with potassium repletion cardiac irritability appears much more stabilized Hypokalemia -supplemented with 80 mEq IV in the emergency department -replete agggressive on 01/15 for K of 3.2, likely dc tomorrow if K near 4.0 Nausea and vomiting,improved -expected to resolve by holding antibiotics -ondansetron as needed -no prior history of THC related cyclic vomiting but that could certainly be contributing. Ciprofloxacin/metronidazole intolerant, -added to intolerance list.? Unfortunately it is not clear which antibiotic produced the reaction although metronidazole is most suspect. Acute diverticulitis -stop metronidazole and ciprofloxacin -Ceftriaxone and Clindamycin IV started.? Has a PCN allergy. Hypertension? -amlodipine, losartan Hyperlipidemia -simvastatin Insomnia -holding clonazepam Time Spent With Patient Critical Care time: I spent a total of [] minutes of critical care time on this patient's care today; this time is exclusive of procedural time. Quality VTE Deep Vein Thrombosis/Pulmonary Embolism Present on Admission: No
[2022-01-15] MEDS: cefTRIAXone 1,000 MG in SODIUM CHLORIDE 0.9% 100 ML 200 ML IV (17:38)
[2022-01-16] VITALS: PULSE 84; RESP 26
[2022-01-16] MEDS: ATORVASTATIN 20 MG TABLET 10 MG PO
[2022-01-16] MEDS: CLINDAMYCIN 600 MG/50 ML PIGGYBACK 50 MG IV ×2 (01:41→08:28)
[2022-01-16 02:00] VITALS: BP 124/72; PULSE 88; RESP 23; TEMP 36.4; O2SAT 94
[2022-01-16 05:09] LABS: BUN Creatinine Ratio 23.5 (6-22); Blood Urea Nitrogen 16 mg/dL (7-17); Calcium 8.6 mg/dL (8.4-10.2); Carbon Dioxide 28 mmol/L (22-32); Chloride 108 mmol/L (98-107); Estimated Glomerular Filt Rate > 60.0 mL/min (>60); Glucose 103 mg/dL (80-110); HEMOLYSIS < 15 (0-50); Potassium 3.9 mmol/L (3.4-5.1); Sodium 137 mmol/L (137-145)
[2022-01-16 06:25] VITALS: BP 126/81; PULSE 91; RESP 12; TEMP 36.7; O2SAT 97
[2022-01-16] MEDS: AMLODIPINE 5 MG TABLET 2.5 MG PO (08:26)
[2022-01-16] MEDS: SODIUM CHLORIDE 0.9% FLUSH 10 ML IV (08:28)
[2022-01-16] MEDS: LOSARTAN 25 MG TABLET PO (08:28)
[2022-01-16] MEDS: POTASSIUM CHLORIDE 20 MEQ TAB 40 MEQ PO (08:28)
--- NOTE | 2022-01-16 12:45 | P.DS_ITS ---
History of Present Illness History of Present Illness Chief complaint: vomiting, can't keep anything down, heart flutter Narrative: Per Dr. Alexandre: This is a 66-year-old female with hypertension, hyperlipidemia and insomnia who was just diagnosed with diverticulitis 2 days ago and started on ciprofloxacin along with metronidazole.? Her abdominal pain has improved but today when she woke up she was dizzy, weak, lightheaded and having palpitations.? She has been vomiting regularly after taking her antibiotics for the last 2 days.? Her potassium on presentation is 2.7 and she is in 2-1 atrial flutter.? With 1 dose of IV diltiazem 10 mg IV push she converted to 4-1 atrial flutter and then to sinus rhythm.? She was given 80 mEq of potassium chloride IV in the emergency department with a follow-up pending.? She seems to have an intolerance to the metronidazole and/or ciprofloxacin despite avoiding all forms of alcohol as cautioned.? Her abdominal pain has resolved.? She has had no fever.? She has had some chills along with the vomiting.? She has no history of arrhythmia or hypokalemia in the past. Discharge Providers Provider Date of admission: 01/14/22 11:14 Discharge Date: 01/16/22 Primary care physician: Peter Naik DO Consults: 01/14/22 11:49 Consult to Physical Therapy Evaluate & Treat Comment: Physician Instructions: Evaluate and Treat Discharge provider: Román Cartagena MD Summary Hospital Course Discharge Diagnosis: 1. Atrial flutter, Torsades secondary to hypokalemia 2. Diverticulitis 3. Nausea and vomiting 4. Hypertension 5. Hyperlipidemia 6. Insomnia 7. UTI Hospital Course: 66W with recent diagnosis diverticulitis presenting with vomiting, hypokalemia found to be in atrial flutter and briefly Torsades. She was found to have very l ow potassium when she was admitted which was the likely cause of her arrhythmia. With improvement in her hypokalemia her arrhythmias resolved and she returned to sinus rhythm. Her hypokalemia is secondary to nausea and vomiting which began after starting cipro/flagyl for recent diagnosis of diverticulitis. She was switched clindamycin and ceftriaxone for treatment. She was found to have E. coli UTI as well. She was discharged moxifloxacin. An ECHO was done which showed no acute process. Exam Vital Signs (past 8 hours): - 01/16/22 06:25 Temperature 98.1 F Pulse Rate 91 H Respiratory Rate 12 Blood Pressure 126/81 Pulse Oximetry 97 Oxygen Delivery Method Room Air Oxygen Flow Rate 0 Narrative Exam Narrative: GEN: no acute distress CV: regular rate and rhythm PULM: clear bilaterally Objective Labs Result Diagrams: 01/15/22 04:53 01/16/22 04:43 Labs: Laboratory Results - last 24 hr 01/16/22 04:43 Sodium 137 Potassium 3.9 Chloride 108 H Carbon Dioxide 28 BUN 16 Creatinine 0.68 Estimated GFR > 60.0 BUN/Creatinine Ratio 23.5 H Glucose 103 Calcium 8.6 PFSH Medical History Cannabis use disorder, mild, in controlled environment Diverticulitis Essential hypertension Hyperlipidemia Insomnia Surgical History No significant past surgical history Family History Father Diverticulitis Heart attack Mother Hypertension Social History household members: spouse Smoking Status: Former smoker alcohol intake: never Discharge Plan Discharge Plan Patient Disposition: Home Provider Discharge Comment: Ms. Diggs came in to the hospital with nausea and vomiting and then a fast heart rate. She was found to have an arrhythmia and low electrolytes. Her arrhythmia improved with giving her electrolytes. It is thought her nausea and vomiting were due to her antibiotics for diverticulitis so this was changed to a different antibiotic when she was discharged. She should stop ciprofloxacin and metronidazole. Discharge orders & Medications Prescriptions: New moxifloxacin 400 mg tablet 400 mg PO DAILY 5 Days 0RF Continued simvastatin 10 MG tablet 20 mg PO HS Qty: 0 0RF clonazepam 0.5 mg tablet 0.14 mg PO DAILY 0RF Label Comments: takes for sleeping amlodipine 2.5 mg tablet 2.5 mg PO DAILY 0RF losartan 25 mg tablet 25 mg PO DAILY 0RF hydrocodone-acetaminophen 5-325 mg tablet 1 tab PO Q6H PRN (Reason: pain) Qty: 20 0RF promethazine 25 mg tablet 25 mg PO TID PRN (Reason: nausea and vomiting) Qty: 14 0RF Premarin 0.625 mg/gram cream 1 applic vaginal SEEINSTR 0RF Label Comments: apply TO PERIURETHRAL REGION every other day AND TAPER TO EVERY OTHER WEEKS Discontinued ciprofloxacin HCl [Cipro] 500 mg tablet 500 mg PO BID Qty: 14 0RF metronidazole 500 mg tablet 500 mg PO TID Qty: 21 0RF Follow up/Referrals: Peter Naik DO [Primary Care Provider] - (*Appt tomorrow, Sunday @ 2:30pm With EVELYN Cárdenas. [phone] ) Diet/Activity/Treatments Diet: Regular Discharge Data Primary Care Provider: Peter Naik Quality VTE Deep Vein Thrombosis/Pulmonary Embolism Present on Admission: No
== END 2022-01-16 10:45 | disposition home or self-care (01) | DRG 309 ==
LOC: ED 11:14 → ICU 01-15 08:53 → AC 01-15 11:23
PROVIDERS: Internal Medicine; Nurse Practitioner Family; Admitting Provider Family Medicine; Emergency Provider Emergency Medicine; Family Provider Family Medicine; PCP Family Medicine; Referring Provider Emergency Medicine; Visit Provider Family Medicine
DX: I48.92 Unspecified atrial flutter (principal); K57.92 Diverticulitis of intestine, part unspecified, without perforation or abscess without bleeding; N39.0 Urinary tract infection, site not specified; E87.6 Hypokalemia; I47.2 Ventricular tachycardia; I48.91 Unspecified atrial fibrillation; R11.2 Nausea with vomiting, unspecified; T50.905A Adverse effect of unspecified drugs, medicaments and biological substances, initial encounter; I10 Essential (primary) hypertension; E78.5 Hyperlipidemia, unspecified; B96.20 Unspecified Escherichia coli [E. coli] as the cause of diseases classified elsewhere; G47.00 Insomnia, unspecified; Z20.822 Contact with and (suspected) exposure to COVID-19; Z87.891 Personal history of nicotine dependence
CPT/HCPCS: 36415; 71045; 80048; 80053; 81001; 81003; 83036; 83735; 84132; 84443; 84484; 85025; 85379; 87635; 93005; 93010; 93306; 96365; 96375; 97161; 99284; C9803; C9113; J0696; J2405; J3475

== ENCOUNTER → 2022-03-03 10:31 | Outpatient (CLI) | payer OTHER, SELFPAY ==
[2022-01-14 13:09] VITALS: BMI 39.6
[2022-03-06 10:02] LABS: HEMOLYSIS < 15 (0-50)
[2022-03-07 07:36] LABS: Adrenocorticotropic Hormone 7.7 pg/mL (7.2-63.3); Dehydroepiandrosterone Sulfate 55.2 ug/dL (20.4-186.6)
[2022-03-16 13:36] LABS: Aldosterone/Renin Activity Rat 8.3 (0.0-30.0); Plama Renin, LC/MS/MS 0.829 ng/mL/hr (0.167-5.380)
== END ==
PROVIDERS: Family Provider Family Medicine; PCP Family Medicine; Referring Provider Surgery; Visit Provider Surgery
DX: E27.8 Other specified disorders of adrenal gland (principal)
CPT/HCPCS: 36415; 82024; 82088; 82627; 84132; 84244; 99215

== ENCOUNTER → 2022-03-08 15:00 | Outpatient (CLI) | payer OTHER, SELFPAY ==
[2022-01-14 13:09] VITALS: BMI 39.6
[2022-03-08 16:03] LABS: BUN Creatinine Ratio 16.3 (6-22); Blood Urea Nitrogen 13 mg/dL (7-17); Estimated Glomerular Filt Rate > 60 mL/min (>60)
== END ==
PROVIDERS: Family Provider Family Medicine; PCP Family Medicine; Visit Provider Surgery
DX: E27.8 Other specified disorders of adrenal gland (principal)
CPT/HCPCS: 82565; 84520

== ENCOUNTER → 2022-03-10 07:50 | Outpatient (CLI) | payer OTHER, SELFPAY ==
[2022-01-14 13:09] VITALS: BMI 39.6
[2022-03-10 09:30] LABS: Cortisol AM (Before 10AM) 1.96 ug/dL (4.46-22.7)
== END ==
PROVIDERS: Family Provider Family Medicine; PCP Family Medicine; Referring Provider Surgery; Visit Provider Surgery
DX: E27.8 Other specified disorders of adrenal gland (principal)
CPT/HCPCS: 36415; 82533

== ENCOUNTER → 2022-03-13 12:58 | Outpatient (CLI) | payer OTHER, SELFPAY ==
[2022-01-14 13:09] VITALS: BMI 39.6
--- NOTE | 2022-03-13 13:00 | DI.CT.S_ITS ---
PROCEDURE: CT ABDOMEN WO/W CON INDICATIONS: Adrenal Mass TECHNIQUE: Noncontrast 3 mm thick sections acquired from the diaphragms to the iliac crests. After the administration of intravenous contrast, 3 mm thick venous-phase and 15-minute delayed images acquired from the diaphragms to the iliac crests. For radiation dose reduction, the following was used: automated exposure control, adjustment of mA and/or kV according to patient size. COMPARISON: [facility], CT, CT ABDOMEN PELVIS W CON, 01/11/2022, 16:30. FINDINGS: Image quality: Excellent. Lung bases: Clear lung bases. No hiatal hernia. Heart: Normal size heart without pericardial effusion. Adrenal glands: 2.2 x 2.7 x 2.1 cm thin-walled ovoid mass arising from the lateral limb of the left adrenal gland demonstrates precontrast Hounsfield units of 2.8. 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 Postcontrast Hounsfield units in the venous phase are 36 and in the delayed phase are 12. Absolute washout and relative washout percentages are both high and characteristic of lipid rich adenomas. The right adrenal gland is normal. Solid organs: Liver is normal in size and enhancement. Gallbladder contains a 3.1 cm stone at the gallbladder neck. Distally the gallbladder is decompressed. Biliary system is non dilated. Pancreas enhances normally. Spleen is normal in size and enhancement. Kidneys are normal in size and enhancement. An 8.3 x 7.3 cm nearly simple cyst arises from the upper pole of the right kidney and contains a single septation towards the upper portion with fine calcification. There is a smaller right lower pole parapelvic cyst. No hydronephrosis. Ureters are nondilated. Peritoneum and bowel: Unenhanced bowel loops are normal in caliber and wall thickness. No free fluid or air. Nodes and vessels: No retroperitoneal or mesenteric adenopathy by size criteria. Aorta and inferior vena cava are normal in size. Miscellaneous: Tiny fat containing umbilical hernia. . Bones: No suspicious bony lesions. No vertebral body compression fractures. IMPRESSION: 1. 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 2. Nearly simple partially exophytic right upper pole renal cyst, Bosniak two. 3. Cholelithiasis. 4. Mild hepatic steatosis. Dictated by: Paula Browning M.D. on 03/13/2022 at 15:42 Approved by: Paula Browning M.D. on 03/13/2022 at 15:52
== END ==
PROVIDERS: Family Provider Family Medicine; PCP Family Medicine; Referring Provider Surgery; Visit Provider Surgery
DX: E27.8 Other specified disorders of adrenal gland (principal); N28.1 Cyst of kidney, acquired; K80.20 Calculus of gallbladder without cholecystitis without obstruction; K76.0 Fatty (change of) liver, not elsewhere classified
CPT/HCPCS: 74170

== ENCOUNTER → 2022-03-22 10:16 | Outpatient (CLI) | payer OTHER, SELFPAY ==
[2022-01-14 13:09] VITALS: BMI 39.6
[2022-03-22 11:30] LABS: COVID19 -Nasal RAPID Negative (Negative)
== END ==
PROVIDERS: Family Provider Family Medicine; PCP Family Medicine; Visit Provider Surgery
DX: Z20.822 Contact with and (suspected) exposure to COVID-19 (principal); Z01.812 Encounter for preprocedural laboratory examination
CPT/HCPCS: 87635; C9803

== ENCOUNTER 2022-03-23 08:27 | Day surgery (SDC) | payer OTHER, SELFPAY ==
[2022-01-14 13:09] VITALS: BMI 39.6
[2022-03-23] VITALS (7 sets, daily range): BP systolic 129–155; BP diastolic 77–109; PULSE 81–97; RESP 12–18; TEMP 36.4–36.7; O2SAT 94–97; BMI 40.8
--- NOTE | 2022-03-23 | PATH_ITS ---
[facility] Accession Number: [id number] . 01 Material submitted: . PART A: colon - ASCENDING PART B: colon - TRANSVERSE POLYPS PART C: rectum - RECTAL POLYP . 01 Diagnosis: A. Ascending, Colon, Biopsy: Tubular adenoma. . B. Transverse Colon, Polyps, Biopsies: Tubular adenomas. . C. Rectum, Polyp, Biopsy: Hyperplastic polyp. MRV 03/28/2022 1313 Local . 01 Electronically signed: . Fina Shields MD, Pathologist NPI- [id number] . 01 Gross description: . Part A: ASCENDING: Received in formalin is 1 fragment(s) of campbell, soft tissue measuring 0.7 x 0.3 x 0.3 cm submitted entirely in 1 cassette(s) Part B: TRANSVERSE POLYPS: Received in formalin are 2 fragment(s) of campbell, soft tissue measuring 0.5 x 0.4 x 0.3 cm to 0.5 x 0.4 x 0.2 cm submitted entirely in 1 cassette(s) Part C: RECTAL POLYP: Received in formalin are 3 fragment(s) of campbell, soft tissue measuring 0.5 x 0.3 x 0.1 cm to 0.4 x 0.2 x 0.1 cm submitted entirely in 1 cassette(s) /CPE 03/25/2022 0321 Local . 01 Pathologist provided ICD-10: D12.2, D12.3 . 01 CPT . 022619, 638561, 450624 Specimen Comment: A courtesy copy of this report has been sent to [phone] Performed at: 01 [facility] [address] [place] [address] [address], [place], [place] [id number] MD Shar Page MD Phone: [phone]
--- NOTE | 2022-03-23 10:11 | PM.PREOP ---
Pre-operative Note COVID-19 COVID-19 status: Negative Result date/Date tested (Pos, Neg/Pending): 03/22/22 Interval Note History & Physical reviewed/Exam performed by Physician: Yes Changes to H&P: No ASA Class (for procedural sedation): II
[2022-03-23] MEDS: fentaNYL 250 MCG/5 ML INJ 125 MCG IV (10:36)
[2022-03-23] MEDS: MIDAZOLAM 5 MG/5 ML VIAL IV (10:37)
--- NOTE | 2022-03-23 10:52 | PM.OP.COLON ---
Operative Date/Time/Diagnoses Date of procedure: 03/23/22 Time of procedure: 10:52 Pre-op diagnosis: Abnormal imaging of the colon Post-op diagnosis: same Procedure & Clinicians Study performed: Colonoscopy Same procedure as scheduled: Yes Surgeon: Victorino Eddy Procedure Notes Procedure in detail: Surgeon: Victorino Eddy MD Procedure: The patient was brought to the endoscopy suite, placed in left lateral decubitus position. The patient was connected to monitoring devices. A time-out was performed. Sedation was administered. Once the patient was adequately sedated, a digital rectal exam was performed and was normal. The scope was then inserted and advanced to the cecum where the appendiceal orifice was identified and photographed. The scope was then slowly withdrawn over greater than 6 minutes. Mucosa was thoroughly inspected. There was a 6 mm polyp in the ascending colon removed with a cold snare. There were 2 5-mm polyps in the mid transverse colon removed with cold snare and sent together. There was moderate sigmoid diverticulosis but no rich stricture. There were two rectal polyps, each about 5 mm in the rectum, removed with cold snare. The scope was retroflexed in the rectum. Mild internal hemorrhoids were noted. The scope was straightened and removed. The patient was awakened and brought to recovery. Versed: 5 mg Fentanyl: 125 mcg EBL: 5 mL Findings: 1 6-mm polyp in the ascending colon, 2 5 mm polyps in the mid transverse colon and to 5 mm polyps in the rectum. There is also moderate sigmoid diverticulosis. Scope withdrawal time: 16 Sedation minutes: 31 Post-procedure Recommendations: Will call with biopsy results Disposition: PACU
== END 2022-03-23 11:55 | disposition home or self-care (01) ==
PROVIDERS: Family Provider Family Medicine; PCP Family Medicine; Referring Provider Surgery; Visit Provider Surgery
PROC: 0DJD8ZZ Inspection of Lower Intestinal Tract, Via Natural or Artificial Opening Endoscopic (ICD-10-PCS; CPT 45378; principal; 2022-03-23 10:00)
DX: R93.3 Abnormal findings on diagnostic imaging of other parts of digestive tract (principal); Z86.010 Personal history of colon polyps; I10 Essential (primary) hypertension; K57.30 Diverticulosis of large intestine without perforation or abscess without bleeding; K64.8 Other hemorrhoids; D12.2 Benign neoplasm of ascending colon; D12.3 Benign neoplasm of transverse colon; K62.1 Rectal polyp
CPT/HCPCS: 45385; 99152; 99153; J2250; J3010

== ENCOUNTER 2023-05-04 15:21 | Emergency (ER) | payer OTHER, SELFPAY ==
[2023-05-04] VITALS (12 sets, daily range): BP systolic 128–192; BP diastolic 64–100; PULSE 87–104; RESP 18–26; TEMP 36.6; O2SAT 95–99; BMI 39.6; BMI 41.1
[2023-05-04] MEDS: ONDANSETRON 4 MG/2 ML INJ IV (16:02)
[2023-05-04 16:24] LABS: Add Manual Diff / Slide Review NO; Basophils Absolute Auto 0 /uL (0-100); Basophils Percent Auto 0.2 % (0-2); Eosinophils Absolute Auto 0 /uL (0-450); Eosinophils Percent Auto 0.1 % (2-4); Hematocrit 48.9 % (36-46); Hemoglobin 16.4 g/dL (12.0-16.0); Lymphocytes Absolute Auto 800 /uL (1100-4500); Lymphocytes Percent Auto 5.9 % (25-40); Mean Corpuscular HGB Conc 33.5 % (30-36); Mean Corpuscular Hemoglobin 31.4 PG (26-34); Mean Corpuscular Volume 93.7 fL (80-100); Monocytes Absolute Auto 300 /uL (0-900); Monocytes Percent Auto 2.3 % (3-14); Neutrophils Absolute Auto 12100 /uL (1500-7000); Neutrophils Percent Auto 91.5 % (50-75); Platelet Count 209 X10^3/uL (150-400); Red Blood Cell Count 5.23 X10^6/uL (4.0-5.2); Red Cell Distribution Width 14.2 % (11.6-14.8); White Blood Cell Count 13.2 X10^3/uL (4.5-11.0)
[2023-05-04 16:26] LABS: Alanine Aminotransferase 24 IU/L (<35); Albumin 4.4 g/dL (3.5-5.0); Albumin Globulin Ratio 1.3 (1.0-2.8); Alkaline Phosphatase 86 U/L (38-126); Aspartate Aminotransferase 27 IU/L (14-36); BUN Creatinine Ratio 21.9 (6-22); Blood Urea Nitrogen 16 mg/dL (7-17); Calcium 9.8 mg/dL (8.4-10.2); Carbon Dioxide 21 mmol/L (22-32); Chloride 105 mmol/L (98-107); Estimated Glomerular Filt Rate > 60 mL/min (>60); Globulin 3.4 g/dL (1.7-4.1); Glucose 183 mg/dL (80-110); HEMOLYSIS < 15 (0-50); Lipase 25 U/L (23-300); Potassium 3.6 mmol/L (3.4-5.1); Sodium 138 mmol/L (137-145); Total Protein 7.8 g/dL (6.3-8.2)
--- NOTE | 2023-05-04 16:37 | DI.US.S_ITS ---
PROCEDURE: US ABDOMEN LIMITED INDICATIONS: SEVERE PAIN TECHNIQUE: Real-time scanning was performed of the abdominal and retroperitoneal organs, with image documentation. COMPARISON: None. FINDINGS: Liver: Limited visualization of the liver secondary to patient scanning characteristics. Overall, unremarkable sonographic appearance of the liver. No focal intrahepatic abnormalities. Gallbladder: There is a gallstone noted in the gallbladder measuring 2.1 x 0.6 x 2.0 cm. There is gallbladder wall thickening measuring 4 mm. No pericholecystic fluid. There is an abnormal sonographic Calzada sign. Biliary ducts: Intrahepatic bile ducts are non-dilated. Extrahepatic bile duct caliber measures 6 mm. Normal is 6-7 mm or less in diameter, or 10 mm or less post-cholecystectomy. Pancreas: Limited visualization of the pancreas. This is due to moderate overlying bowel gas. Miscellaneous: No free abdominal fluid. IMPRESSION: Cholelithiasis with sonographic evidence for acute cholecystitis. Dictated by: Michael Hunter M.D. on 05/04/2023 at 17:53 Approved by: Michael Hunter M.D. on 05/04/2023 at 17:56
[2023-05-04] MEDS: HYDROMORPHONE 0.5 MG INJ IV ×2 (16:42→18:50)
--- NOTE | 2023-05-04 17:03 | PC.NURSE ---
Patient noted to desat on monitor, pt with eyes closed breathing even and unlabored. Woke pt and encouraged pt to take deep breaths, pt up to 95% on RA.
[2023-05-04 17:35] LABS: Bacteria Urine None Seen; RBC Urine None Seen (0-5/HPF); WBC Urine None Seen (0-5/HPF)
[2023-05-04 17:36] LABS: Culture Indicated Urine Cult Not Indicated; Squamous Epithelial Cell Urine None Seen (0-5/HPF)
--- NOTE | 2023-05-04 17:48 | DI.CT.S_ITS ---
PROCEDURE: CT ABDOMEN PELVIS W CON INDICATIONS: severe abdominal pain TECHNIQUE: After the administration of intravenous contrast, axial sections acquired from the lung bases to the pubic symphysis. Coronal and sagittal reformats were performed. For radiation dose reduction, the following was used: automated exposure control, adjustment of mA and/or kV according to patient size. COMPARISON: [facility], CT, CT ABDOMEN WO/W CON, 03/13/2022, 13:04. [facility], CT, CT ABDOMEN PELVIS W CON, 01/11/2022, 16:30. FINDINGS: Image quality: Diagnostic Lung bases: Unremarkable. Heart: Heart size is normal. Small hiatal hernia. ABDOMEN: Liver: There is diffuse hypoattenuation of the liver parenchyma relative to the spleen compatible with hepatic steatosis. Gallbladder: Large gallstone is again noted. No CT evidence for acute cholecystitis. Biliary ducts: Unremarkable. Pancreas: Homogeneous enhancement without focal lesions or pancreatic ductal dilatation. No peripancreatic inflammation or organized fluid collections. Spleen: No splenomegaly Adrenal Glands: Stable appearance of 2.4 x 3.3 cm left adrenal mass. Kidneys and Ureters: Stable exophytic right upper pole renal cyst measuring 7.6 x 7.6 cm in size. No hydronephrosis. Bilateral ureters are normal in course and caliber. Stomach and Bowel: Stomach, small bowel loops, and colon are unremarkable. Scattered colonic diverticulosis without evidence for acute diverticulitis. Peritoneum: No abnormal intraperitoneal fluid. No free air. Ventral Wall: No significant hernias. Abdominal Nodes: No retroperitoneal or mesenteric adenopathy by size criteria. Vessels: Aorta and inferior vena cava are normal in size. PELVIS: Pelvic Organs: Reproductive organs are unremarkable as imaged. Bladder: Unremarkable. Pelvic Nodes: No enlarged lymph nodes. Miscellaneous: No hernias are seen. Bones: No acute vertebral body compression fractures. Multilevel spondylitic changes throughout the imaged spine. No suspicious osseous lesions. IMPRESSION: Colonic diverticulosis without acute diverticulitis. Otherwise, no acute abnormalities identified in the abdomen or pelvis. Cholelithiasis without CT evidence for acute cholecystitis. Stable appearance of large left adrenal mass evaluate to be a adenoma on previous imaging Hepatic steatosis. Hiatal hernia. Dictated by: Michael Hunter M.D. on 05/04/2023 at 19:18 Approved by: Michael Hunter M.D. on 05/04/2023 at 19:24
--- NOTE | 2023-05-04 19:39 | ED_ITS ---
HPI - General Adult General Chief complaint: Abdominal Pain Stated complaint: Sick, Stomach pain Time Seen by Provider: 05/04/23 16:00 Source: patient and family Mode of arrival: Ambulatory History of Present Illness HPI narrative: 67-year-old female who is here for evaluation of epigastric abdominal discomfort. Some nausea but no vomiting. She is had multiple bowel movements today which she states are normal bowel movements just more of them. No urinary symptoms. No fevers but is having chills. She states she is known gallbladder disease. Was told that she needs her gallbladder out a long time ago but has never had it done. She denies any urinary symptoms. No chest pain or shortness of breath. Related Data Home Medications Medication Instructions Recorded Confirmed simvastatin 10 mg tablet 20 mg PO HS ##0 08/09/12 03/03/22 clonazepam 0.5 mg tablet 0.14 mg PO DAILY 02/16/21 03/23/22 amlodipine 2.5 mg tablet 2.5 mg PO DAILY 03/10/21 03/23/22 losartan 25 mg tablet 25 mg PO DAILY 03/10/21 03/23/22 conjugated estrogens 0.625 mg/gram 1 applic vaginal SEEINSTR 01/14/22 03/23/22 vaginal cream (Premarin) Previous Rx's Medication Instructions Recorded peg 3350-electrolytes 236 240 ml PO Q10M #4,000 mL 03/03/22 gram-22.74 gram-6.74 gram-5.86 gram solution (Golytely) ondansetron 4 mg disintegrating 4 mg PO Q6H PRN nausea and 05/04/23 tablet vomiting #14 tabs oxycodone-acetaminophen 2.5 mg-325 1 tab PO Q6H PRN pain #10 tabs 05/04/23 mg tablet Allergies Allergy/AdvReac Type Severity Reaction Status Date / Time penicillin G Allergy Intermediate Verified 05/04/23 15:39 ciprofloxacin [From Cipro] AdvReac Severe Vomiting Verified 05/04/23 15:39 metronidazole [From Flagyl] AdvReac Severe Vomiting Verified 05/04/23 15:39 Review of Systems Review of Systems ROS Unobtainable: All systems reviewed & are unremarkable except as noted in HPI and below Patient History Medical History Cannabis use disorder, mild, in controlled environment Diverticulitis Essential hypertension Hyperlipidemia Insomnia Surgical History No significant past surgical history Family History Father Diverticulitis Heart attack Mother Hypertension Social History household members: spouse Smoking Status: Current every day smoker alcohol intake: never Smoking Status: Current every day smoker alcohol intake frequency: holidays/special occasions only Substance Use Type: marijuana Exam Initial Vital Signs Initial Vital Signs: Vital Signs Temperature 97.9 F 05/04/23 15:29 Pulse Rate 102 H 05/04/23 15:29 Respiratory Rate 26 H 05/04/23 15:29 Blood Pressure 128/64 05/04/23 15:29 Pulse Oximetry 98 05/04/23 15:29 Oxygen Delivery Method Room Air 05/04/23 15:29 Const General: cooperative, comfortable and No ill appearing HENMT Head: normal to inspection and normocephalic GI Inspection: normal to inspection Palpation: soft, No guarding and tender (Epigastric region, no right upper quadrant tenderness) Back/Spine/Pelvis Back: No CVA tenderness Skin General: no rashes or lesions noted Neuro General: patient alert, patient awake, patient oriented x3 and moves all extremities Speech: speech normal Extrem General: normal to inspection and No capillary refill normal Psych Appearance: grossly normal and well kempt Course Orders Ordered: ED Orders 05/04/23 16:37 US abdomen limited Stat 05/04/23 17:15 Urine Microscopic Stat 05/04/23 17:48 CT abdomen pelvis w con Stat Discontinued Medications Hydromorphone HCl (Hydromorphone 0.5 Mg Inj) 0.5 mg IV NOW ONE Stop: 05/04/23 16:38 Last Admin: 05/04/23 16:42 Dose: 0.5 mg Documented By: KETTY Hydromorphone HCl (Hydromorphone 0.5 Mg Inj) 0.5 mg IV NOW ONE Stop: 05/04/23 18:44 Last Admin: 05/04/23 18:50 Dose: 0.5 mg Documented By: KETTY Ondansetron HCl (Ondansetron 4 Mg Odt) 4 mg PO NOW PRN PRN Reason: Nausea And Vomiting Ondansetron HCl (Ondansetron 4 Mg/2 Ml Inj) 4 mg IV NOW PRN PRN Reason: Nausea And Vomiting Last Admin: 05/04/23 16:02 Dose: 4 mg Documented By: RB Ondansetron HCl (Ondansetron 4 Mg Odt Prepack) 1 bottle MISC SEEINSTR ONE Stop: 05/04/23 19:44 Last Admin: 05/04/23 19:52 Dose: 1 bottle Documented By: Oxycodone/Acetaminophen (Oxycodone/Apap 5/325 Prepack) 1 bottle MISC SEEINSTR ONE Stop: 05/04/23 19:44 Last Admin: 05/04/23 19:52 Dose: 1 bottle Documented By: Vital Signs Vital signs: Vital Signs - 8 hr 05/04/23 17:58 05/04/23 17:30 05/04/23 17:30 Pulse Rate 87 Respiratory Rate Blood Pressure 155/76 H Pulse Oximetry 97 Oxygen Delivery Method Nasal Cannula Oxygen Flow Rate 2 05/04/23 18:00 05/04/23 18:00 05/04/23 18:21 Pulse Rate 95 H Respiratory Rate Blood Pressure 176/99 H 192/88 H Pulse Oximetry 99 Oxygen Delivery Method Nasal Cannula Oxygen Flow Rate 2 05/04/23 18:21 05/04/23 18:30 05/04/23 18:30 Pulse Rate 97 H 101 H Respiratory Rate Blood Pressure 146/74 H Pulse Oximetry 98 98 Oxygen Delivery Method Oxygen Flow Rate 05/04/23 19:00 05/04/23 19:30 05/04/23 19:44 Pulse Rate 89 93 H 104 H Respiratory Rate Blood Pressure Pulse Oximetry 95 98 Oxygen Delivery Method Oxygen Flow Rate 05/04/23 19:44 Pulse Rate Respiratory Rate 18 Blood Pressure 167/89 H Pulse Oximetry Oxygen Delivery Method Oxygen Flow Rate Medical Decision Making Lab Data Lab results reviewed: Yes I reviewed the patient's lab results. 05/04/23 15:45 05/04/23 15:45 Labs: Lab Results 05/04/23 05/04/23 05/04/23 Range/Units 15:45 15:45 17:15 WBC 13.2 H (4.5-11.0) X10^3/uL RBC 5.23 H (4.0-5.2) X10^6/uL Hgb 16.4 H (12.0-16.0) g/dL Hct 48.9 H (36-46) % MCV 93.7 (80-100) fL MCH 31.4 (26-34) PG MCHC 33.5 (30-36) % RDW 14.2 (11.6-14.8) % Plt Count 209 (150-400) X10^3/uL Neut % (Auto) 91.5 H (50-75) % Lymph % (Auto) 5.9 L (25-40) % [place] % (Auto) 2.3 L (3-14) % Eos % (Auto) 0.1 L (2-4) % Baso % (Auto) 0.2 (0-2) % Neut # (Auto) 23776 H (8080-6930) /uL Lymph # (Auto) 800 L (5691-2944) /uL [place] # (Auto) 300 (0-900) /uL Eos # (Auto) 0 (0-450) /uL Baso # (Auto) 0 (0-100) /uL Sodium 138 (137-145) mmol/L Potassium 3.6 (3.4-5.1) mmol/L Chloride 105 (98-107) mmol/L Carbon Dioxide 21 L (22-32) mmol/L BUN 16 (7-17) mg/dL Creatinine 0.73 (0.52-1.04) mg/dL Estimated GFR > 60 (>60) mL/min BUN/Creatinine Ratio 21.9 (6-22) Glucose 183 H (80-110) mg/dL Calcium 9.8 (8.4-10.2) mg/dL Total Bilirubin 1.0 (0.2-1.3) mg/dL AST 27 (14-36) IU/L ALT 24 (<35) IU/L Alkaline Phosphatase 86 (38-126) U/L Total Protein 7.8 (6.3-8.2) g/dL Albumin 4.4 (3.5-5.0) g/dL Globulin 3.4 (1.7-4.1) g/dL Albumin/Globulin Ratio 1.3 (1.0-2.8) Lipase 25 (23-300) U/L Urine RBC None seen (0-5/HPF) Urine WBC None seen (0-5/HPF) Ur Squamous Epith Cells None seen (0-5/HPF) Urine Bacteria None seen (None) Ur Culture Indicated? Cult not indicated Urine Dip Bedside Urine Glucose 100 mg/dl Bedside Urine Bilirubin - Negative Bedside Urine Ketone +++ 80 Urine Specific [place] 1.015 Bedside Urine Occult Blood +/- Bedside Urine pH 6.5 Bedside Urine Protein - Negative Bedside Urine Urobilinogen - Negative Bedside Urine Nitrite - Negative Bedside Urine Leukocytes - Negative Esterase Point of care testing: Urine Dip Bedside Urine Glucose 100 mg/dl Bedside Urine Bilirubin - Negative Bedside Urine Ketone +++ 80 Urine Specific [place] 1.015 Bedside Urine Occult Blood +/- Bedside Urine pH 6.5 Bedside Urine Protein - Negative Bedside Urine Urobilinogen - Negative Bedside Urine Nitrite - Negative Bedside Urine Leukocytes - Negative Esterase Imaging Data US - abdomen: Radiologist's Impression: PROCEDURE:? US ABDOMEN LIMITED ? INDICATIONS:? SEVERE PAIN ? TECHNIQUE:? Real-time scanning was performed of the abdominal and retroperitoneal organs, with image documentation.? ? COMPARISON:? None. ? FINDINGS:? ? Liver:? Limited visualization of the liver secondary to patient scanning characteristics. ?Overall, unremarkable sonographic appearance of the liver.? No focal intrahepatic abnormalities. ? Gallbladder:? There is a gallstone noted in the gallbladder measuring 2.1 x 0.6 x 2.0 cm. ?There is gallbladder wall thickening measuring 4 mm.? No pericholecystic fluid.? There is an abnormal sonographic Calzada sign.? ? Biliary ducts:? Intrahepatic bile ducts are non-dilated.? Extrahepatic bile duct caliber measures 6 mm.? Normal is 6-7 mm or less in diameter, or 10 mm or less post-cholecystectomy.? ? Pancreas:? Limited visualization of the pancreas.? This is due to moderate overlying bowel gas. ? ? Miscellaneous:? No free abdominal fluid.? ? ? IMPRESSION:? Cholelithiasis with sonographic evidence for acute cholecystitis. CT scan - abdomen/pelvis: Radiologist's Impression: PROCEDURE:? CT ABDOMEN PELVIS W CON ? INDICATIONS:? severe abdominal pain ? TECHNIQUE:? After the administration of intravenous contrast, axial sections acquired from the lung bases to the pubic symphysis.? Coronal and sagittal reformats were performed.? For radiation dose reduction, the following was used:? automated exposure control, adjustment of mA and/or kV according to patient size.? ? COMPARISON:? [facility], CT, CT ABDOMEN WO/W CON, 03/13/2022, 13:04.? [facility], CT, CT ABDOMEN PELVIS W CON, 01/11/2022, 16:30. ? FINDINGS:? Image quality:? Diagnostic ? Lung bases:? Unremarkable. Heart:? Heart size is normal.? Small hiatal hernia. ? ABDOMEN: Liver: There is diffuse hypoattenuation of the liver parenchyma relative to the spleen compatible with hepatic steatosis. Gallbladder:? Large gallstone is again noted.? No CT evidence for acute c holecystitis. Biliary ducts:? Unremarkable.? ? Pancreas: Homogeneous enhancement without focal lesions or pancreatic ductal dilatation.? No peripancreatic inflammation or organized fluid collections. Spleen:? No splenomegaly Adrenal Glands:? Stable appearance of 2.4 x 3.3 cm left adrenal mass. Kidneys and Ureters:? Stable exophytic right upper pole renal cyst measuring 7.6 x 7.6 cm in size.? No hydronephrosis.? Bilateral ureters are normal in course and caliber. ? Stomach and Bowel:? Stomach, small bowel loops, and colon are unremarkable.? Scattered colonic diverticulosis without evidence for acute diverticulitis. Peritoneum:? No abnormal intraperitoneal fluid.? No free air.? ? Ventral Wall: ? No significant hernias.? Abdominal Nodes:? No retroperitoneal or mesenteric adenopathy by size criteria.? Vessels:? Aorta and inferior vena cava are normal in size.? ? PELVIS: Pelvic Organs:? Reproductive organs are unremarkable as imaged. Bladder:? Unremarkable.? ? Pelvic Nodes: No enlarged lymph nodes.? Miscellaneous: No hernias are seen. ? ? ? Bones: No acute vertebral body compression fractures. Multilevel spondylitic changes throughout the imaged spine.? No suspicious osseous lesions. ? ? IMPRESSION:? Colonic diverticulosis without acute diverticulitis.? Otherwise, no acute abnormalities identified in the abdomen or pelvis. ? Cholelithiasis without CT evidence for acute cholecystitis. ? 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 Hepatic steatosis. ? Hiatal hernia. ECG Data Attestation: I personally reviewed and interpreted this ECG as follows: Interpretation: Sinus rhythm Ventricular rate 98 Normal axis Normal QRS Normal QTC No ST T wave changes MDM Narrative Medical decision making narrative: Patient does have cholelithiasis without definitive acute cholecystitis. The ultrasound report states the patient did have a sonographic Calzada's sign however my evaluation she was not having any right upper quadrant tenderness. Her LFTs unremarkable. She does have leukocytosis however there is no specific source of infection found. Her pain is controlled and nausea controlled with medications. There was no indication for antibiotics. I do have some suspicion that this may be her gallbladder. She is been told in the past that she needs to have her gallbladder removed. Will sent home with pain medicine and nausea medicine. She was informed that she needs to follow-up with a general surgeon to talk about her gallbladder and have her removed. She was given specific return precautions. She expressed understanding and agreement. Discharge Plan Departure Patient Disposition: Home Clinical Impression: Cholelithiasis, Abdominal pain Instructions: DI for Gallstones, DI for Abdominal Pain-Adult Activity Restrictions/Additional Instructions: I do recommend that you eat a bland diet. Use the nausea medicine and pain medicine as needed. Recommend that you contact the general surgery department at the number provided below. Return to the emergency department for new or worsening symptoms. I would also recommend that you start on a stomach ulcer medicines such as Nexium or Prilosec. You can purchase these [id number]. The generic versions are appropriate. Prescriptions: New ondansetron 4 mg tablet,disintegrating 4 mg PO Q6H PRN (Reason: nausea and vomiting) Qty: 14 0RF oxycodone-acetaminophen 2.5-325 mg tablet 1 tab PO Q6H PRN (Reason: pain) Qty: 10 0RF No Action simvastatin 10 MG tablet 20 mg PO HS Qty: 0 peg 3350-electrolytes [Golytely] 236-22.74-6.74 -5.86 gram recon soln 240 ml PO Q10M Qty: 4000 0RF Rx Instructions: Take as directed by Physician. clonazepam 0.5 mg tablet 0.14 mg PO DAILY Patient Comments: takes for sleeping amlodipine 2.5 mg tablet 2.5 mg PO DAILY losartan 25 mg tablet 25 mg PO DAILY Premarin 0.625 mg/gram cream 1 applic vaginal SEEINSTR Patient Comments: apply TO PERIURETHRAL REGION every other day AND TAPER TO EVERY OTHER WEEKS Referrals: Shelly Cantu MD [Physician] - Peter Naik DO [Primary Care Provider] - Stand Alone Forms: Patient Portal/API
[2023-05-04] MEDS: OXYCODONE/APAP 5/325 PREPACK 1 BOTTLE MISC (19:52)
[2023-05-04] MEDS: ONDANSETRON 4 MG ODT PREPACK 1 BOTTLE MISC (19:52)
== END 2023-05-04 19:57 | disposition home or self-care (01) ==
PROVIDERS: Emergency Medicine; Emergency Provider Emergency Medicine; Family Provider Family Medicine; PCP Family Medicine
DX: K80.20 Calculus of gallbladder without cholecystitis without obstruction (principal); R10.13 Epigastric pain
CPT/HCPCS: 36415; 74177; 76705; 80053; 81003; 81015; 83690; 85025; 93005; 93010; 96374; 96375; 96376; 99284; 99285; J1170; J2405; Q9967

== ENCOUNTER 2023-05-07 11:51 | Observation (INO) | payer OTHER, SELFPAY ==
[2023-05-04 15:21] VITALS: BMI 39.6
[2023-05-07] VITALS (14 sets, daily range): BP systolic 114–196; BP diastolic 73–103; PULSE 81–99; RESP 12–33; TEMP 36.6–36.8; O2SAT 94–100; BMI 40.7
[2023-05-07 12:07] LABS: Add Manual Diff / Slide Review NO; Basophils Absolute Auto 100 /uL (0-100); Basophils Percent Auto 0.9 % (0-2); Eosinophils Absolute Auto 100 /uL (0-450); Eosinophils Percent Auto 1.3 % (2-4); Hematocrit 48.8 % (36-46); Hemoglobin 16.8 g/dL (12.0-16.0); Lymphocytes Absolute Auto 2400 /uL (1100-4500); Lymphocytes Percent Auto 22.5 % (25-40); Mean Corpuscular HGB Conc 34.3 % (30-36); Mean Corpuscular Hemoglobin 31.8 PG (26-34); Mean Corpuscular Volume 92.8 fL (80-100); Monocytes Absolute Auto 700 /uL (0-900); Monocytes Percent Auto 6.9 % (3-14); Neutrophils Absolute Auto 7400 /uL (1500-7000); Neutrophils Percent Auto 68.4 % (50-75); Platelet Count 219 X10^3/uL (150-400); Red Blood Cell Count 5.26 X10^6/uL (4.0-5.2); Red Cell Distribution Width 13.7 % (11.6-14.8); White Blood Cell Count 10.9 X10^3/uL (4.5-11.0)
[2023-05-07] MEDS: ONDANSETRON 4 MG/2 ML INJ IV ×2 (12:15→13:54)
--- NOTE | 2023-05-07 12:17 | DI.US.S_ITS ---
PROCEDURE: US ABDOMEN LIMITED INDICATIONS: VOMITING POSTPRANDIAL. INCREASED PAIN. RECENT US AND CT. TECHNIQUE: Real-time scanning was performed of the abdominal and retroperitoneal organs, with image documentation. COMPARISON: [facility], CT, CT ABDOMEN PELVIS W CON, 01/11/2022, 16:30. [facility], US, US ABDOMEN LIMITED, 05/04/2023, 16:48. FINDINGS: Liver: Measures 16.5 cm in length. Increased in echogenicity. Decreased sonographic penetration. Gallbladder: Not significantly dilated. Large nonmobile stone at the gallbladder neck measuring 2.8 x 2.5 cm. Probable gallbladder sludge. Gallbladder wall is within normal limits and measures 2.4 mm. No pericholecystic fluid. Positive sonographic Calzada's sign. Biliary ducts: Intrahepatic bile ducts are non-dilated. CBD is not well seen. Pancreas: Visualized portions of the pancreas are sonographically normal. Miscellaneous: No free abdominal fluid. Anechoic right renal cyst measuring 9.4 cm. Debris or mural nodule measuring 1.5 cm. No internal vascularity. IMPRESSION: Exam is technically difficult due to acoustic windows and body habitus. 1. Positive sonographic Calzada's sign. Stone at the gallbladder neck measuring 2.8 cm. Findings concerning for cholecystitis. Recommend clinical correlation. HIDA scan may be helpful for further evaluation. 2. Increased hepatic echogenicity most consistent with hepatic steatosis. Other forms of hepatocellular disease could have similar appearance. Limited evaluation of the liver due to echogenicity and decreased sonographic penetration. 3. Large anechoic right renal cyst measuring 9.4 cm. Debris or small avascular mural nodule. Low suspicion. Recommend attention on follow-up imaging. Dictated by: Waldemar Kaur M.D. on 05/07/2023 at 13:33 Approved by: Waldemar Kaur M.D. on 05/07/2023 at 13:40
[2023-05-07 12:19] LABS: Alanine Aminotransferase 25 IU/L (<35); Albumin 4.2 g/dL (3.5-5.0); Albumin Globulin Ratio 1.3 (1.0-2.8); Alkaline Phosphatase 76 U/L (38-126); Aspartate Aminotransferase 28 IU/L (14-36); BUN Creatinine Ratio 20.2 (6-22); Bilirubin Total 0.7 mg/dL (0.2-1.3); Blood Urea Nitrogen 18 mg/dL (7-17); Calcium 9.5 mg/dL (8.4-10.2); Carbon Dioxide 28 mmol/L (22-32); Chloride 101 mmol/L (98-107); Estimated Glomerular Filt Rate > 60 mL/min (>60); Globulin 3.2 g/dL (1.7-4.1); Glucose 137 mg/dL (80-110); HEMOLYSIS 28 (0-50); Lipase 46 U/L (23-300); Potassium 3.4 mmol/L (3.4-5.1); Sodium 136 mmol/L (137-145); Total Protein 7.4 g/dL (6.3-8.2)
[2023-05-07] MEDS: LORazepam 2 MG/ML INJ 1 MG IV (12:33)
--- NOTE | 2023-05-07 13:05 | ED_ITS ---
HPI - Nausea/Vomiting/Diarrhea General Chief complaint: Nausea/Vomiting/Diarrhea Stated complaint: sick/stomach pain/nausea Time Seen by Provider: 05/07/23 12:17 Source: patient Mode of arrival: Ambulatory Limitations: no limitations History of Present Illness HPI Narrative: This is a 67-year-old female with history of hypertension, dyslipidemia, known cholelithiasis and prior history of atrial fibrillation, patient presents with complaint of right upper quadrant pain nausea and vomiting after eating some [place] toast this morning. She was seen here 3 days ago for similar symptoms was found to have gallstones. Patient denies any fevers. She states she was doing well after discharge here from the hospital but this morning 8 and then started getting nauseated having vomiting. She states pain also had reoccurred and increased. She is states no back or flank pain. She states pain feels similar to when she was here 3 days ago. She states she was told she should have her gallbladder out but has not had it done. She denies any diarrhea or constipation. No black or bloody stools. No dysuria urgency or frequency. Denying any chest pain or shortness of breath. She tried an oral antinausea medication at home without any success. She denies other surgeries. States she is allergic to penicillin and antinausea medication she is received in the past in December. Does use tobacco daily, states occasional alcohol, uses marijuana denies any other illicit. Primary care is Dr. Naik. Related Data Home Medications Medication Instructions Recorded Confirmed simvastatin 10 mg tablet 20 mg PO HS ##0 08/09/12 05/07/23 clonazepam 0.5 mg tablet 0.14 mg PO DAILY 02/16/21 05/07/23 amlodipine 2.5 mg tablet 2.5 mg PO DAILY 03/10/21 05/07/23 losartan 25 mg tablet 25 mg PO DAILY 03/10/21 05/07/23 Allergies Allergy/AdvReac Type Severity Reaction Status Date / Time penicillin G Allergy Intermediate Verified 05/07/23 12:01 ciprofloxacin [From Cipro] AdvReac Severe Vomiting Verified 05/07/23 12:01 metronidazole [From Flagyl] AdvReac Severe Vomiting Verified 05/07/23 12:01 Review of Systems Review of Systems ROS Unobtainable: All systems reviewed & are unremarkable except as noted in HPI and below Patient History Medical History Cannabis use disorder, mild, in controlled environment Diverticulitis Essential hypertension Hyperlipidemia Insomnia Surgical History No significant past surgical history Family History Father Diverticulitis Heart attack Mother Hypertension Social History household members: spouse Smoking Status: Current every day smoker alcohol intake: never Smoking Status: Current every day smoker alcohol intake frequency: holidays/special occasions only Substance Use Type: marijuana Exam Narrative Exam Narrative: GENERAL: Alert and oriented x three, obese female in moderate distress HEENT: Head normocephalic, atraumatic, EOMI, pupils reactive, face symmetric, moist mucous membranes NECK: Supple, full range of motion CARDIOVASCULAR: Regular rate and rhythm without murmurs, rubs or gallops. RESPIRATORY: Breath sounds equal bilaterally, no wheezes rales or rhonchi. No tachypnea accessory muscle use. ABDOMEN: Soft, positive for right upper quadrant tenderness. Normoactive bowel sounds all 4 quadrants. No guarding or rebound, rigidity, no mass, no bruit or pulsatile mass. Patient had been having some dry heaves and vomiting prior to evaluation she is still nauseated but has not been vomiting while during evaluation. : No CVA tenderness EXTREMITIES: Normal range of motion, no clubbing or edema. Neurovascularly intact NEUROLOGICAL: Cranial nerves II through XII grossly intact. Moving all extremities SKIN: Warm, dry, no petechiae, no rashes or lesions. Initial Vital Signs Initial Vital Signs: Vital Signs Temperature 98.1 F 05/07/23 11:55 Pulse Rate 96 H 05/07/23 11:55 Respiratory Rate 22 05/07/23 11:55 Blood Pressure 196/103 H 05/07/23 11:55 Pulse Oximetry 99 05/07/23 11:55 Oxygen Delivery Method Room Air 05/07/23 11:55 Course Orders Ordered: Acetaminophen (Acetaminophen 325 Mg Tablet) 650 mg PO Q6H RODRIGUEZ Last Admin: 05/08/23 03:18 Dose: Not Given Documented By: Admin: 05/07/23 21:52 Dose: 650 mg Documented By: Admin: 05/07/23 14:48 Dose: Not Given Documented By: TLS Atorvastatin Calcium (Atorvastatin 20 Mg Tablet) 10 mg PO BEDTIME [facility] Last Admin: 05/07/23 21:52 Dose: 10 mg Documented By: AM Celecoxib (Celecoxib 200 Mg Capsule) 200 mg PO BID [facility] Last Admin: 05/07/23 21:52 Dose: 200 mg Documented By: Admin: 05/07/23 14:48 Dose: Not Given Documented By: TLS Clonazepam (Clonazepam 0.5 Mg Tablet) 0.25 mg PO BEDTIME PRN PRN Reason: sleep Last Admin: 05/07/23 22:28 Dose: 0.25 mg Documented By: AM Diphenhydramine HCl (Diphenhydramine 50 Mg/Ml Vial) 50 mg IV Q6HR PRN PRN Reason: Itching Gabapentin (Gabapentin 100 Mg Capsule) 300 mg PO TID [facility] [place] Last Admin: 05/07/23 21:51 Dose: 300 mg Documented By: Admin: 05/07/23 14:56 Dose: Not Given Documented By: TLS Hydromorphone HCl (Hydromorphone 0.5 Mg Inj) 0.5 mg IV Q2H PRN PRN Reason: Pain, Severe (7-10) Last Admin: 05/07/23 14:55 Dose: 0.5 mg Documented By: TLS Dextrose/Sodium Chloride (Dextrose 5%-0.45% Ns) 1,000 mls @ 100 mls/hr IV CONT [facility] [place] Last Admin: 05/08/23 00:57 Dose: 100 mls/hr Documented By: Infusion: 05/08/23 00:54 Dose: 100 mls/hr Documented By: Admin: 05/07/23 14:54 Dose: 100 mls/hr Documented By: TLS Piperacillin Sod/Tazobactam (Sod 3.375 gm/ Sodium Chloride) 100 mls @ 25 mls/hr IV Q8H [facility] [place] Last Admin: 05/08/23 05:45 Dose: 25 mls/hr Documented By: Infusion: 05/08/23 02:29 Dose: 25 mls/hr Documented By: Admin: 05/07/23 22:29 Dose: 25 mls/hr Documented By: Infusion: 05/07/23 18:55 Dose: 25 mls/hr Documented By: Admin: 05/07/23 14:55 Dose: 25 mls/hr Documented By: TLS Losartan Potassium (Losartan 25 Mg Tablet) 25 mg PO DAILY RODRIGUEZ Naloxone HCl (Naloxone 0.4 Mg/Ml Vial) 0.2 mg IV Q2MIN PRN PRN Reason: Opiate Reversal Ondansetron HCl (Ondansetron 4 Mg Odt) 4 mg PO NOW PRN PRN Reason: Nausea And Vomiting Last Admin: 05/07/23 17:21 Dose: 4 mg Documented By: MM Ondansetron HCl (Ondansetron 4 Mg/2 Ml Inj) 4 mg IV NOW PRN PRN Reason: Nausea And Vomiting Last Admin: 05/07/23 12:15 Dose: 4 mg Documented By: MPO Oxycodone HCl (Oxycodone Ir 5 Mg Tablet) 5 mg PO Q3H PRN PRN Reason: Pain, Moderate (4-6) Last Admin: 05/07/23 17:20 Dose: 5 mg Documented By: MM Scopolamine (Scopolamine 1 Patch) 1 patch TOP Q72H RODRIGUEZ Last Admin: 05/07/23 15:00 Dose: 1 patch Documented By: TLS Discontinued Medications Hydromorphone HCl (Hydromorphone 0.5 Mg Inj) 0.5 mg IV NOW ONE Stop: 05/07/23 13:17 Last Admin: 05/07/23 13:24 Dose: 0.5 mg Documented By: MPO Sodium Chloride (Normal Saline 0.9%) 1,000 mls @ 1,000 mls/hr IV BOLUS ONE Stop: 05/07/23 13:17 Last Infusion: 05/07/23 14:10 Dose: 0 mls/hr Documented By: Admin: 05/07/23 13:08 Dose: 1,000 mls/hr Documented By: MPO Lorazepam (Lorazepam 2 Mg/Ml Inj) 1 mg IV NOW ONE Stop: 05/07/23 12:29 Last Admin: 05/07/23 12:33 Dose: 1 mg Documented By: AT Ondansetron HCl (Ondansetron 4 Mg/2 Ml Inj) 4 mg IV NOW ONE Stop: 05/07/23 13:51 Last Admin: 05/07/23 13:54 Dose: 4 mg Documented By: MPO Vital Signs Vital signs: Vital Signs - 8 hr 05/07/23 11:55 Temperature 98.1 F Pulse Rate 96 H Respiratory Rate 22 Blood Pressure 196/103 H Pulse Oximetry 99 Oxygen Delivery Method Room Air MDM - Nausea/Vomiting/Diarrhea Lab Data 05/07/23 12:00 05/07/23 12:00 Labs: Lab Results 05/07/23 05/07/23 Range/Units 12:00 12:00 WBC 10.9 (4.5-11.0) X10^3/uL RBC 5.26 H (4.0-5.2) X10^6/uL Hgb 16.8 H (12.0-16.0) g/dL Hct 48.8 H (36-46) % MCV 92.8 (80-100) fL MCH 31.8 (26-34) PG MCHC 34.3 (30-36) % RDW 13.7 (11.6-14.8) % Plt Count 219 (150-400) X10^3/uL Neut % (Auto) 68.4 (50-75) % Lymph % (Auto) 22.5 L (25-40) % [place] % (Auto) 6.9 (3-14) % Eos % (Auto) 1.3 L (2-4) % Baso % (Auto) 0.9 (0-2) % Neut # (Auto) 7400 H (9049-7503) /uL Lymph # (Auto) 2400 (7001-3562) /uL [place] # (Auto) 700 (0-900) /uL Eos # (Auto) 100 (0-450) /uL Baso # (Auto) 100 (0-100) /uL Sodium 136 L (137-145) mmol/L Potassium 3.4 (3.4-5.1) mmol/L Chloride 101 (98-107) mmol/L Carbon Dioxide 28 (22-32) mmol/L BUN 18 H (7-17) mg/dL Creatinine 0.89 (0.52-1.04) mg/dL Estimated GFR > 60 (>60) mL/min BUN/Creatinine Ratio 20.2 (6-22) Glucose 137 H (80-110) mg/dL Calcium 9.5 (8.4-10.2) mg/dL Total Bilirubin 0.7 (0.2-1.3) mg/dL AST 28 (14-36) IU/L ALT 25 (<35) IU/L Alkaline Phosphatase 76 (38-126) U/L Total Protein 7.4 (6.3-8.2) g/dL Albumin 4.2 (3.5-5.0) g/dL Globulin 3.2 (1.7-4.1) g/dL Albumin/Globulin Ratio 1.3 (1.0-2.8) Lipase 46 D (23-300) U/L Urine Dip Bedside Urine Glucose Negative Bedside Urine Bilirubin - Negative Bedside Urine Ketone - Negative Urine Specific [place] 1.010 Bedside Urine Occult Blood - Negative Bedside Urine pH 7.0 Bedside Urine Protein - Negative Bedside Urine Urobilinogen - Negative Bedside Urine Nitrite - Negative Bedside Urine Leukocytes - Negative Esterase Imaging Data US - abdomen: Radiologist's Impression: [address] [address] Ultrasound Report Signed Patient: Alaina Diggs MR#: [id number] : 1955 Acct:[id number] Age/Sex: 67 / F Date of Service: 05/07/23 Loc: ED Accession Number: [id number] ?? Procedure: US abdomen limited Ordering Provider: Jadyn Oseguera D.O. PROCEDURE:? US ABDOMEN LIMITED ? INDICATIONS:? VOMITING POSTPRANDIAL. INCREASED PAIN. RECENT US AND CT. ? TECHNIQUE:? Real-time scanning was performed of the abdominal and retroperitoneal organs, with image documentation.? ? COMPARISON:? [facility], CT, CT ABDOMEN PELVIS W CON, 01/11/2022, 16:30.? [facility], US, US ABDOMEN LIMITED, 05/04/2023, 16:48. ? FINDINGS:? ? Liver:? Measures 16.5 cm in length.? Increased in echogenicity.? Decreased sonographic penetration. ? Gallbladder:? Not significantly dilated.? Large nonmobile stone at the gallbladder neck measuring 2.8 x 2.5 cm.? Probable gallbladder sludge.? Gallbladder wall is within normal limits and measures 2.4 mm. No pericholecystic fluid.? Positive sonographic Calzada's sign. ? Biliary ducts:? Intrahepatic bile ducts are non-dilated.? CBD is not well seen. ? Pancreas:? Visualized portions of the pancreas are sonographically normal.? ? Miscellaneous:? No free abdominal fluid.? Anechoic right renal cyst measuring 9.4 cm.? Debris or mural nodule measuring 1.5 cm.? No internal vascularity.? ? ? IMPRESSION:? Exam is technically difficult due to acoustic windows and body habitus. ? 1. Positive sonographic Calzada's sign.? Stone at the gallbladder neck measuring 2.8 cm.? Findings concerning for cholecystitis.? Recommend clinical correlation.? HIDA scan may be helpful for further evaluation. ? 2. Increased hepatic echogenicity most consistent with hepatic steatosis. Other forms of hepatocellular disease could have similar appearance.? Limited evaluation of the liver due to echogenicity and decreased sonographic penetration. ? 3. Large anechoic right renal cyst measuring 9.4 cm. Debris or small avascular mural nodule.? Low suspicion.? Recommend attention on follow-up imaging. ? ? Dictated by: Waldemar Kaur M.D. on 05/07/2023 at 13:33 ? ? Approved by: Waldemar Kaur M.D. on 05/07/2023 at 13:40?? MDM Narrative Medical decision making narrative: This is a 67-year-old female who represents with similar symptoms from 3 days ago. Was not improve until she had [place] toast this morning. Labs do not show any elevation of LFTs, lipase, CBC is appropriate. Patient does not appear septic. She is hypertensive but quite uncomfortable. Patient's imaging from the was reviewed including ultrasound and CT patient has stable appearance of large left adrenal mass, cholelithiasis hepatic steatosis and hiatal hernia on CT with gallstone noted that was 2.1 x 0.6 x 2 cm some wall thickening at 4 mm no pericholecystic fluid at that time there was a positive Calzada sign. CBD ducts were otherwise normal. Repeat scan preliminary discussion with mariya is at gallbladder wall appears thin but there does appear to be sludge and stone appears immobile in the neck. Patient was noted to be hypertensive at that time as well. Patient case was discussed with Dr. Preciado who accepts plan for surgery today or tomorrow. Discharge Plan Departure Patient Disposition: Admitted As Inpatient Clinical Impression: Cholelithiasis Admit Date/Time: 05/07/23 14:23 Admit Provider: Tammi Preciado
[2023-05-07] MEDS: SODIUM CHLORIDE 0.9% 1,000 ML 1000 ML IV (13:08)
[2023-05-07] MEDS: HYDROMORPHONE 0.5 MG INJ IV ×2 (13:24→14:55)
--- NOTE | 2023-05-07 14:30 | PC.NURSE ---
Pt arrived to unit from ED. Pt A&Ox4, ambulating to restroom independently. IV in the RAC was hooked up to D5NS45 @100ml/hr as well as Zosyn. Pt urinated in hat, clear yellow. C/o pain in RUQ and nausea. IV dilaudid and IV zofran administered, and effective. Pt lung sounds clear, RA, VS stable but pt was hypertensive and tachy (158/88 94bpm). Pt had significant r sided facial droop. When asked to smile, pt's R side was still drooped. When asked the pt and spouse about the droopiness, pt and spouse stated it was somewhat normal and that when pt gets stressed or not well the drooping shows. I informed the ore charger, Mark, and he assessed the pt. Pt's smile was symmetrical afterwards. Notified (Ozzy) about pt's R sided droop.
[2023-05-07] MEDS: DEXTROSE 5%-0.45% NS 1,000 ML 100 ML IV (14:54)
[2023-05-07] MEDS: PIPERACILLIN/TAZO 3.375 GM in SODIUM CHLORIDE 0.9% 100 ML IV ×2 (14:55→22:29)
[2023-05-07] MEDS: SCOPOLAMINE 1 PATCH TOP (15:00)
[2023-05-07] MEDS: OXYCODONE IR 5 MG TABLET PO (17:20)
[2023-05-07] MEDS: ONDANSETRON 4 MG ODT PO (17:21)
--- NOTE | 2023-05-07 19:28 | PC.NURSE ---
Received a phone call from Pt's concerned that Pt had had a stroke. Told him that this nurse would go to room and assess Pt and speak with the nurse caring for the Pt. Pt spoke well, followed commands, showed symetrical movement of eye brows and lips. no overt facial features concerning possible stroke though Pt says her Lip does droop when she is stressed. Discussed Pt with nurse and recommended she call Dr. Preciado to voice concern and explain what she saw. See Bedside Nurses note.
[2023-05-07] MEDS: GABAPENTIN 100 MG CAPSULE 300 MG PO (21:51)
[2023-05-07] MEDS: ACETAMINOPHEN 325 MG TABLET 650 MG PO (21:52)
[2023-05-07] MEDS: CELECOXIB 200 MG CAPSULE PO (21:52)
[2023-05-07] MEDS: ATORVASTATIN 20 MG TABLET 10 MG PO (21:52)
[2023-05-07] MEDS: clonazePAM 0.5 MG TABLET 0.25 MG PO (22:28)
[2023-05-08] VITALS (18 sets, daily range): BP systolic 98–159; BP diastolic 62–96; PULSE 66–92; RESP 11–20; TEMP 35.8–37.1; O2SAT 92–100; BMI 40.7
[2023-05-08] MEDS: DEXTROSE 5%-0.45% NS 1,000 ML 100 ML IV ×2 (00:57→18:54)
[2023-05-08] MEDS: PIPERACILLIN/TAZO 3.375 GM in SODIUM CHLORIDE 0.9% 100 ML IV ×2 (05:45→18:49)
--- NOTE | 2023-05-08 10:09 | P.HP_ITS ---
History of Present Illness History of Present Illness Date Patient Seen: 05/08/23 Time Patient Seen: 10:09 Chief complaint: sick/stomach pain/nausea Narrative: In ED on the 7th with evidence of stone in neck of gallbladder, pain has persisted, no elevated WBC or LFT's. RUQ pain with nausea and anorexia. Has had previous epidsodes. [facility] Medical History Cannabis use disorder, mild, in controlled environment Diverticulitis Essential hypertension Hyperlipidemia Insomnia Surgical History No significant past surgical history Family History Father Diverticulitis Heart attack Mother Hypertension Social History household members: spouse Smoking Status: Current every day smoker alcohol intake: never Meds Home Medications and Allergies Home Medications Medication Instructions Recorded Confirmed Type simvastatin 10 mg tablet 20 mg PO HS ##0 08/09/12 05/07/23 History clonazepam 0.5 mg tablet 0.14 mg PO DAILY 02/16/21 05/07/23 History amlodipine 2.5 mg tablet 2.5 mg PO DAILY 03/10/21 05/07/23 History losartan 25 mg tablet 25 mg PO DAILY 03/10/21 05/07/23 History Allergies Allergy/AdvReac Type Severity Reaction Status Date / Time penicillin G Allergy Intermediate Verified 05/07/23 12:01 ciprofloxacin [From Cipro] AdvReac Severe Vomiting Verified 05/07/23 12:01 metronidazole [From Flagyl] AdvReac Severe Vomiting Verified 05/07/23 12:01 Review of Systems Review of Systems ROS: Yes All systems reviewed with the patient and are negative except as otherwise documented Exam Vital Signs (past 8 hours): - 05/08/23 05:10 05/08/23 08:53 Temperature 98.3 F 98.8 F Pulse Rate 69 67 Respiratory Rate 18 16 Blood Pressure 106/68 115/74 Pulse Oximetry 98 94 Oxygen Flow Rate 0 0 Oxygen Delivery Method Room Air Oxygen Flow Rate 0 Const General: cooperative and ill appearing Nutritional Appearance: overweight HENMT Head: normocephalic and atraumatic Ears: hearing grossly normal bilaterally Eyes General: appearance normal, both eyes and all related structures Neck Neck: trachea midline Resp Effort & Inspection: normal respiratory effort and able to speak in complete sentences Cardio Rate: regular rate Rhythm: regular rhythm GI Palpation: soft and tender (RUQ tenderness to palpation) Skin General: atrophy Hair: brittle Neuro General: patient alert, patient awake and patient oriented x3 Cranial Nerves: tongue midline Speech: speech normal Psych Mental Status: mental status grossly normal Judgment: judgment good Objective Labs 05/07/23 12:00 05/07/23 12:00 Labs: Laboratory Results - last 24 hr 05/07/23 05/07/23 12:00 12:00 WBC 10.9 RBC 5.26 H Hgb 16.8 H Hct 48.8 H MCV 92.8 MCH 31.8 MCHC 34.3 RDW 13.7 Plt Count 219 Neut % (Auto) 68.4 Lymph % (Auto) 22.5 L [place] % (Auto) 6.9 Eos % (Auto) 1.3 L Baso % (Auto) 0.9 Neut # (Auto) 7400 H Lymph # (Auto) 2400 [place] # (Auto) 700 Eos # (Auto) 100 Baso # (Auto) 100 Sodium 136 L Potassium 3.4 Chloride 101 Carbon Dioxide 28 BUN 18 H Creatinine 0.89 Estimated GFR > 60 BUN/Creatinine Ratio 20.2 Glucose 137 H Calcium 9.5 Total Bilirubin 0.7 AST 28 ALT 25 Alkaline Phosphatase 76 Total Protein 7.4 Albumin 4.2 Globulin 3.2 Albumin/Globulin Ratio 1.3 Lipase 46 D Assessment & Plan Assessment & Plan narrative: Acute cholecystitis, BMI 40.7 Plan: lap acryl, IV antibiotics perioperative Time Spent With Patient Time with patient: less than 30 minutes Quality VTE Deep Vein Thrombosis/Pulmonary Embolism Present on Admission: No
--- NOTE | 2023-05-08 10:27 | CM.DANOTE ---
DCP: Chart review for case, met with patient at bedside, they agree to case management assessment. Completed DCP assessment based on information available. Patient is 67 year old admitted for abdominal pain/nausea vomiting, diarrhea, US with choli cystitis, plan for lap choli today at 1615 PCP: Peter Naik last seen over 1 year ago Payer: [employer] DME: States none DCP: Home with supportive . 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 Alena Roy RN, CM Discharge Planning/Care Management CM Discharge Assessment Start: 05/08/23 10:26 Freq: Status: Active Protocol: Document 05/08/23 10:26 BQ (Rec: 05/08/23 10:27 BQ [id number]) Discharge Planning Assessment Assigned Frame Stripper And Crusher Alena Roy RN, CM Advance Directives? No History Provided By Patient,Medical Record Has Patient been admitted in last 30 No days? Prior Living Arrangements House Household Members spouse Type of transporation used prior to Drives own vehicle admit Independent with ADL's Yes Is patient alert and oriented? Yes Caregiver for Another No Barriers to Discharge No Discharge Plan Home Transportation Arrangement Spouse Referrals Initiated None needed Whiteboard Updated in Patient Room with Yes name and ext. # of Frame Stripper And Crusher Review Status In Process Next Review Type Continued Stay Review
--- NOTE | 2023-05-08 13:48 | SUR.OPER ---
Supine on padded OR bed, head on pillow, arms secured on padded arm boards at <90 degrees abduction, legs uncrossed, safety belt at thigh, tape over blanket over lower legs.
[2023-05-08] MEDS: SODIUM CHLORIDE IRRIG SOLUTION 1,000 ML, TRANEXAMIC ACID 1,000 MG IRR (14:19)
[2023-05-08] MEDS: BUPIVACAINE 0.5% (PF) 30 ML, EPINEPHrine 0.15 MG INJ (14:20)
--- NOTE | 2023-05-08 14:47 | PM.OP.1 ---
Operative Date/Time/Diagnoses Date of procedure: 05/08/23 Time of procedure: 14:47 Pre-op diagnosis: Acute cholecystitis Post-op diagnosis: same Procedure & Clinicians Procedure: Laparoscopic cholecystectomy Same procedure as scheduled: Yes Indications: Acute cholecystitis Surgeon: Tammi Preciado Video Game Animator: Duran Badillo Click Yes if Unassisted: Yes Anesthesia Type: General Operative Notes Findings: Acute cholecystitis. Iatrogenic muscular bleed at the umbilical port site addressed intraoperative Closure Type: primary Specimen(s): other (Gallbladder) Applied: drain(s) (15. IRIS drain) Estimated Blood Loss (mL): 500 Blood products transfused: none Procedure in detail: Preop diagnosis: Acute cholecystitis Postop diagnosis: Same Operative procedure: Laparoscopic cholecystectomy Surgeon: Carolyn Preciado MD Anesthetic: General with ET tube intubation along with local health center assistant: Liban Badillo MD Findings: Acute cholecystitis. An iatrogenic muscle bleed at the umbilical port site addressed at the time of surgery Procedure: Patient placed in a supine position. Prepped and draped in sterile fashion to expose her abdomen. Infraumbilical port site was placed using open technique and a 12 mm port. Of note there was bleeding at the port site. This was tamponaded with the use of a ballooned port with good success throughout the procedure. Gallbladder was grasped pushed cephalad for exposure. Cystic duct was identified and dissected free. It was clipped twice proximally once distally and transected. Cystic artery was identified clipped once distally once proximally and transected. Gallbladder was removed from the fossa bed with electrocautery. And we had good hemostasis at the operative site. Small amount of bile leaked from the gallbladder but no stones. I then deflated the balloon at the umbilical port site to placed the Endo-Catch bag. Bag was used to retrieve the gallbladder bring it out through the umbilical port site which was extended. During the process we noted bleeding externally in the musculature surrounding the port site and 2-0 Vicryl sutures were used to tamponade the bleeding to good success externally. I then checked with laparoscopic the status of the umbilical port site internally and there was evidence of ongoing bleeding relatively brisk. From their efforts were made and finally successful with [id number] ligation of the muscular bleed but only after approximately 500 cc blood loss. Blood was suctioned from the lower abdomen to the best of our ability and then a 15 Maltese Marquez-Chiang drain was placed into the pelvis brought out through 1 the existing 5 mm ports. TXA was given by anesthesia toward the end are controlling the muscular bleed in an effort to slow or decrease overall blood loss with good effect. I then completed closure of the fascia of the infraumbilical port site with 2-0 Vicryl. Skin was closed with a running 4-0 Vicryl. Steri-Strips and sterile dressings were placed, the patient was awakened, extubated, taken to recovery room in stable condition. Needle, instrument, sponge counts were correct. Blood loss: 500 mL Specimen: Gallbladder Complications: none Post-operative Condition: stable Disposition: PACU
[2023-05-08] MEDS: HYDROMORPHONE 2 MG INJ IV (15:29)
[2023-05-08] MEDS: OXYCODONE IR 5 MG TABLET PO (15:35)
[2023-05-08] MEDS: GABAPENTIN 300 MG CAPSULE PO ×2 (15:48→21:15)
[2023-05-08] MEDS: ONDANSETRON 4 MG/2 ML INJ IV (15:56)
--- NOTE | 2023-05-08 16:14 | SUR.PHASEI ---
100mls of serosanguinous fluid has been emptied from pts IRIS drain at 1600. Dr. Preciado has been made aware and no new orders have been placed at this time. She reports that there is an expected 400mls of irrigant remaining in the abdm to drain in the next several hours. IRIS drain has been closed and pressure has been applied to the bulb.
[2023-05-08] MEDS: OXYCODONE IR 10 MG TABLET PO ×2 (17:26→22:18)
[2023-05-08] MEDS: METOCLOPRAMIDE 10 MG/2 ML INJ IV (17:27)
--- NOTE | 2023-05-08 20:42 | PC.NURSE ---
Pt returned from OR. BP in the 90's, nausea and retching, pain. MD called and pt received reglan and 10mg of oxycodone per new orders. She fell asleep for a short time and when she awoke she reported she felt so much better. Sl disoriented on arrival to floor PACU nurse thought it might be the dilaudid. MD made aware at the time she was called. Not a candidate for toradol due to blood loss in OR. She was actually feeling better this afternoon. See orders. Patient is reporting she is feeling better this afternoon.
[2023-05-08] MEDS: ACETAMINOPHEN 325 MG TABLET 650 MG PO (21:15)
[2023-05-08] MEDS: ATORVASTATIN 20 MG TABLET 10 MG PO (21:15)
[2023-05-08] MEDS: CELECOXIB 200 MG CAPSULE PO (21:15)
[2023-05-08] MEDS: clonazePAM 0.5 MG TABLET 0.25 MG PO (21:22)
--- NOTE | 2023-05-08 22:56 | PC.NURSE ---
Addendum entered by Iva Holliday R.N. 05/09/23 01:52: Patient does not have external catheter in place and is getting up to bathroom with 1 assist + walker. Denies dysuria but states she does have some urinary hesitancy. Original Note: Patient is alert and oriented. Breath sounds CTA with RA sat of 94%; on continuous oximetry. HRR. Denies nausea. BT hypoactive and has not passed flatus since surgery. Lap site dressings and IRIS dressing CDI. IRIS compressed and intact with sanguinous drainage noted. Complains of 4/10 left lower quadrant abdominal pain and was medicated with tylenol + oxycodone; has ice pack to abdomen. Instructed in splinting of incision for coughing or movement. Currently has external catheter in place and denies dysuria. Is able to move self in bed; assisted as requested. Wearing bilateral calf SCD's. Fall risk score is moderate and bed alarm is activated.
[2023-05-09] MEDS: ACETAMINOPHEN 325 MG TABLET 650 MG PO ×2 (02:40→08:36)
[2023-05-09] MEDS: OXYCODONE IR 10 MG TABLET PO ×2 (02:40→10:33)
[2023-05-09] MEDS: PIPERACILLIN/TAZO 3.375 GM in SODIUM CHLORIDE 0.9% 100 ML IV (02:41)
[2023-05-09 03:25] VITALS: BP 107/59; PULSE 69; RESP 18; TEMP 36.7; O2SAT 96
[2023-05-09] MEDS: DEXTROSE 5%-0.45% NS 1,000 ML 100 ML IV (05:10)
[2023-05-09 06:04] LABS: Add Manual Diff / Slide Review NO; Basophils Absolute Auto 100 /uL (0-100); Basophils Percent Auto 0.4 % (0-2); Eosinophils Absolute Auto 0 /uL (0-450); Eosinophils Percent Auto 0.1 % (2-4); Hematocrit 36.9 % (36-46); Hemoglobin 12.4 g/dL (12.0-16.0); Lymphocytes Absolute Auto 1200 /uL (1100-4500); Lymphocytes Percent Auto 8.6 % (25-40); Mean Corpuscular HGB Conc 33.7 % (30-36); Mean Corpuscular Hemoglobin 31.3 PG (26-34); Mean Corpuscular Volume 92.7 fL (80-100); Monocytes Absolute Auto 900 /uL (0-900); Monocytes Percent Auto 6.6 % (3-14); Neutrophils Absolute Auto 11300 /uL (1500-7000); Neutrophils Percent Auto 84.3 % (50-75); Platelet Count 168 X10^3/uL (150-400); Red Blood Cell Count 3.98 X10^6/uL (4.0-5.2); Red Cell Distribution Width 13.5 % (11.6-14.8); White Blood Cell Count 13.4 X10^3/uL (4.5-11.0)
[2023-05-09 06:14] LABS: Alanine Aminotransferase 72 IU/L (<35); Albumin 2.9 g/dL (3.5-5.0); Albumin Globulin Ratio 1.3 (1.0-2.8); Alkaline Phosphatase 52 U/L (38-126); Aspartate Aminotransferase 117 IU/L (14-36); BUN Creatinine Ratio 11.9 (6-22); Bilirubin Total 0.6 mg/dL (0.2-1.3); Blood Urea Nitrogen 10 mg/dL (7-17); Carbon Dioxide 30 mmol/L (22-32); Chloride 100 mmol/L (98-107); Estimated Glomerular Filt Rate > 60 mL/min (>60); Globulin 2.3 g/dL (1.7-4.1); Glucose 118 mg/dL (80-110); HEMOLYSIS < 15 (0-50); Potassium 3.5 mmol/L (3.4-5.1); Sodium 135 mmol/L (137-145); Total Protein 5.2 g/dL (6.3-8.2)
[2023-05-09 08:36] VITALS: BP 105/67; PULSE 71; RESP 18; TEMP 36.8; O2SAT 97
[2023-05-09] MEDS: GABAPENTIN 300 MG CAPSULE PO (08:36)
[2023-05-09] MEDS: CELECOXIB 200 MG CAPSULE PO (08:36)
[2023-05-09 08:39] VITALS: BP 105/67
--- NOTE | 2023-05-09 09:08 | PM.PNPO.1 ---
Subjective Subjective Date Patient Seen: 05/09/23 Time Patient Seen: 09:08 Interval history: Status post lap choly with intraoperative port site bleeding that has resolved. Morning labs are within expectations. Drain left in the pelvis to remove any was residual blood that can be removed prior to discharge Exam Vital Signs (past 8 hours): - 05/09/23 03:25 05/09/23 08:36 05/09/23 08:39 Temperature 98.1 F 98.3 F Pulse Rate 69 71 Respiratory Rate 18 18 Blood Pressure 107/59 L 105/67 105/67 Pulse Oximetry 96 97 Oxygen Flow Rate 0 0 Oxygen Delivery Method Room Air Oxygen Flow Rate 0 Narrative Exam Narrative: Patient looks comfortable. She says the pelvis does irritate but likely related to the drain. Wounds are dry and intact. Objective Labs 05/09/23 05:40 05/09/23 05:40 Labs: Laboratory Results - last 24 hr 05/09/23 05/09/23 05:40 05:40 WBC 13.4 H RBC 3.98 L Hgb 12.4 Hct 36.9 MCV 92.7 MCH 31.3 MCHC 33.7 RDW 13.5 Plt Count 168 Neut % (Auto) 84.3 H Lymph % (Auto) 8.6 L [place] % (Auto) 6.6 Eos % (Auto) 0.1 L Baso % (Auto) 0.4 Neut # (Auto) 96117 H Lymph # (Auto) 1200 [place] # (Auto) 900 Eos # (Auto) 0 Baso # (Auto) 100 Sodium 135 L Potassium 3.5 Chloride 100 Carbon Dioxide 30 BUN 10 Creatinine 0.84 Estimated GFR > 60 BUN/Creatinine Ratio 11.9 Glucose 118 H Calcium 8.0 L Total Bilirubin 0.6 AST 117 H ALT 72 H Alkaline Phosphatase 52 Total Protein 5.2 L Albumin 2.9 L Globulin 2.3 Albumin/Globulin Ratio 1.3 PFSH Medical History Cannabis use disorder, mild, in controlled environment Diverticulitis Essential hypertension Hyperlipidemia Insomnia Surgical History No significant past surgical history Family History Father Diverticulitis Heart attack Mother Hypertension Social History household members: spouse Smoking Status: Current every day smoker alcohol intake: never Assessment & Plan Post-op Postoperative Procedures: Procedures Operation Date: 05/08/23 13:15 Actual Procedure Side Surgeon p Laparoscopic Cholecystectomy Tammi Preciado MD Postoperative status: doing well Postoperative plan: discharge Time Spent With Patient Time with patient: less than 15 minutes Quality VTE Deep Vein Thrombosis/Pulmonary Embolism Present on Admission: No
[2023-05-09] MEDS: levoFLOXacin 250 MG TABLET 750 MG PO (09:28)
--- NOTE | 2023-05-09 10:58 | CM.DPC ---
DCP Continued: RADIOLOGY EQUIPMENT SERVICER reviewed EMR. RADIOLOGY EQUIPMENT SERVICER entered room and introduced self and role. Patient was resting in bed and appeared A/Ox4. Patient reported she will call her to have him come get here whenever the medical staff tells her she's good to go home. Plan: patient will d/c home with family later today. no needs identified from CM team. CM team will continue to follow as needed. ALINE Hernandez
--- NOTE | 2023-05-09 12:56 | PC.NURSE ---
Day shift: Paperwork signed and all questions answered. Pt has all personal belongings. scripts sent to Pt's pharmacy electronic. ABD pain well controlled per MAT today. IRIS drain removed per this am and Pt tolerated well. Rechecked that dressing and it remains CDI. Left unit at approx 1245 via WC. Taken by this race and sports book writer. Pt's Spouse is driving them home.
== END 2023-05-09 12:58 | disposition home or self-care (01) ==
LOC: ED 13:50 → AC 14:41
PROVIDERS: Admitting Provider Surgery; Emergency Provider Emergency Medicine; Family Provider Family Medicine; PCP Family Medicine; Referring Provider Emergency Medicine; Visit Provider Surgery
PROC: 0FT44ZZ Resection of Gallbladder, Percutaneous Endoscopic Approach (ICD-10-PCS; CPT 47562; principal; 2023-05-08 13:15)
DX: K80.00 Calculus of gallbladder with acute cholecystitis without obstruction (principal); F17.200 Nicotine dependence, unspecified, uncomplicated; I10 Essential (primary) hypertension; E78.5 Hyperlipidemia, unspecified; F12.90 Cannabis use, unspecified, uncomplicated
CPT/HCPCS: 47562; 36415; 76705; 80053; 81003; 83690; 85025; 96361; 96365; 96366; 96375; 96376; 99221; 99284; G0378; J0171; J0330; J1100; J1170; J1885; J2060; J2405; J2543; J2704; J2765; J3010; J3490

== ENCOUNTER 2023-12-13 16:07 | Emergency (ER) | payer OTHER, SELFPAY ==
[2023-05-07 14:35] VITALS: BMI 40.7
[2023-12-13] VITALS (19 sets, daily range): BP systolic 144–182; BP diastolic 66–115; PULSE 83–122; RESP 10–42; TEMP 36.3–36.4; O2SAT 91–97; BMI 42.0
[2023-12-13] MEDS: ONDANSETRON 4 MG/2 ML INJ IV ×2 (16:39→21:09)
[2023-12-13 17:34] LABS: Add Manual Diff / Slide Review NO; Basophils Absolute Auto 100 /uL (0-100); Basophils Percent Auto 0.9 % (0-2); Eosinophils Absolute Auto 0 /uL (0-450); Hematocrit 47.4 % (36-46); Hemoglobin 15.9 g/dL (12.0-16.0); Lymphocytes Absolute Auto 800 /uL (1100-4500); Lymphocytes Percent Auto 5.7 % (25-40); Mean Corpuscular HGB Conc 33.4 % (30-36); Mean Corpuscular Volume 92.6 fL (80-100); Monocytes Absolute Auto 400 /uL (0-900); Monocytes Percent Auto 2.6 % (3-14); Neutrophils Absolute Auto 13500 /uL (1500-7000); Neutrophils Percent Auto 90.8 % (50-75); Platelet Count 205 X10^3/uL (150-400); Red Blood Cell Count 5.12 X10^6/uL (4.0-5.2); Red Cell Distribution Width 14.2 % (11.6-14.8); White Blood Cell Count 14.9 X10^3/uL (4.5-11.0)
[2023-12-13] MEDS: METOCLOPRAMIDE 10 MG/2 ML INJ IV (17:35)
[2023-12-13 17:44] LABS: Lactate (Lactic Acid) 2.9 mmol/L (0.7-2.1)
[2023-12-13 17:45] LABS: Alanine Aminotransferase 20 IU/L (<35); Albumin 4.3 g/dL (3.5-5.0); Albumin Globulin Ratio 1.3 (1.0-2.8); Alkaline Phosphatase 77 U/L (38-126); Aspartate Aminotransferase 23 IU/L (14-36); BUN Creatinine Ratio 16.9 (6-22); Bilirubin Total 0.9 mg/dL (0.2-1.3); Blood Urea Nitrogen 11 mg/dL (7-17); Calcium 10.4 mg/dL (8.4-10.2); Carbon Dioxide 22 mmol/L (22-32); Chloride 104 mmol/L (98-107); Creatine Kinase 44 U/L (30-135); Estimated Glomerular Filt Rate > 60 mL/min (>60); Globulin 3.2 g/dL (1.7-4.1); Glucose 193 mg/dL (80-110); HEMOLYSIS < 15 (0-50); Lipase 30 U/L (23-300); Potassium 3.5 mmol/L (3.4-5.1); Sodium 139 mmol/L (137-145); Total Protein 7.5 g/dL (6.3-8.2)
--- NOTE | 2023-12-13 17:49 | PC.NURSE ---
Pt states she felt fine yesterday and into this morning. Pt reports walking around the house and having my morning mocha when she had sudden onset RUQ abdominal pain with nausea, vomiting, and dizziness. History of cholecystectomy and diverticulitis. She denies chest pain or SOB. Pt restless in bed, repeating my feet are cold. Pt vomitted bile. New order for medication placed (see MAR). She is oriented x4, keeping her eyes closed due to nausea/dizziness. Pt was able to stand up at bedside and reposition onto bedside commode without worsening dizziness and produced urine sample.
--- NOTE | 2023-12-13 17:54 | ED_ITS ---
HPI - Nausea/Vomiting/Diarrhea <Petre Corbin MD - Last Filed: 01/02/24 07:54> General Chief complaint: Nausea/Vomiting/Diarrhea Stated complaint: vomiting, dizzy, hot and cold Time Seen by Provider: 12/13/23 17:05 Source: patient and family Mode of arrival: Wheelchair History of Present Illness HPI Narrative: patient denies any sick contacts. Patient complains of nausea and vomiting since this morning. Went to bed last night no problems. ComplainsOf abdominal pain diffusely. No chest pain no back pain. No urine complaints. Patient denies any black or bloody stools. No hematemesis. Blood pressure noted heart rate noted. [place] dizzy as well. Patient has history of hypertension and diverticulitis. Related Data Home Medications Medication Instructions Recorded Confirmed simvastatin 10 mg tablet 20 mg PO HS ##0 08/09/12 05/07/23 clonazepam 0.5 mg tablet 0.14 mg PO DAILY 02/16/21 05/07/23 amlodipine 2.5 mg tablet 2.5 mg PO DAILY 03/10/21 05/07/23 losartan 25 mg tablet 25 mg PO DAILY 03/10/21 05/07/23 Previous Rx's Medication Instructions Recorded celecoxib 200 mg capsule (Celebrex) 200 mg PO BID #20 caps 05/09/23 levofloxacin 250 mg tablet 750 mg (3 x 250 mg) PO 0700 #3 tabs 05/09/23 Allergies Allergy/AdvReac Type Severity Reaction Status Date / Time penicillin G Allergy Intermediate Verified 12/13/23 16:37 ciprofloxacin [From Cipro] AdvReac Severe Vomiting Verified 12/13/23 16:37 metronidazole [From Flagyl] AdvReac Severe Vomiting Verified 12/13/23 16:37 <Samina Stephen MD - Last Filed: 12/13/23 20:57> History of Present Illness HPI Narrative: 68-year-old woman with history of hypertension and prior episodes of diverticulitis presents with complains of nausea and vomiting since this morning. Went to bed last night no problems, no history of sick contacts Complains of diffuse abdominal pain with dizziness... No chest pain, palpitations no back pain. No urine complaints. Patient denies any black or bloody stools. No hematemesis. She has not been having vomiting or diarrhea. Review of Systems <Peter Corbin MD - Last Filed: 01/02/24 07:54> Review of Systems Narrative: GENERAL: positive chills, negative fatigue, malaise, fever, sweats. HEENT: negative sinus pain, ear pain, sore throat RESPIRATORY: negative dyspnea, cough CARDIOVASCULAR: negative chest pain, palpitations GASTROINTESTINAL: Positive nausea, vomiting, abdominal pain : negative dysuria, frequency, hematuria MUSCULOSKELETAL: negative muscle or bony pain SKIN: negative rash, skin lesions NEUROLOGIC: negative weakness, numbness ROS Unobtainable: All systems reviewed & are unremarkable except as noted in HPI and below Patient History <Peter Corbin MD - Last Filed: 01/02/24 07:54> Medical History Cannabis use disorder, mild, in controlled environment Insomnia Hyperlipidemia Essential hypertension Diverticulitis Surgical History Hx laparoscopic cholecystectomy Family History Father Diverticulitis Heart attack Mother Hypertension Social History household members: spouse Smoking Status: Current every day smoker alcohol intake: never Smoking Status: Current every day smoker alcohol intake frequency: holidays/special occasions only Substance Use Type: marijuana Exam <Peter Corbin MD - Last Filed: 01/02/24 07:54> Narrative Exam Narrative: GENERAL: in no distress, not toxic not dyspneic HEAD: Normocephalic. EYES: Pupils equal round ENT: Mucous membranes moist. NECK: Trachea midline. CARDIOVASCULAR: Regular rate and rhythm RESPIRATORY: Clear to auscultation. Breath sounds equal bilaterally. No wheezes, rales, or rhonchi. GASTROINTESTINAL: Abdomen soft, There is diffuse abdominal tenderness. No peritoneal signs. No pain out of portion exam. No guarding no rebound tenderness EXTREMITIES: No gross deformities. BACK: No flank tenderness. NEURO: AOx4. SKIN: Warm and dry PSYCH: Not anxious, is cooperative Initial Vital Signs Initial Vital Signs: Vital Signs Temperature 97.4 F L 12/13/23 16:23 Pulse Rate 122 H 12/13/23 16:23 Respiratory Rate 18 12/13/23 16:23 Blood Pressure 182/90 H 12/13/23 16:23 Pulse Oximetry 91 12/13/23 16:23 Oxygen Delivery Method Room Air 12/13/23 16:23 <Samina Stephen MD - Last Filed: 12/13/23 20:57> Initial Vital Signs Initial Vital Signs: Vital Signs Temperature 97.4 F L 12/13/23 16:23 Pulse Rate 122 H 12/13/23 16:23 Respiratory Rate 18 12/13/23 16:23 Blood Pressure 182/90 H 12/13/23 16:23 Pulse Oximetry 91 12/13/23 16:23 Oxygen Delivery Method Room Air 12/13/23 16:23 Course <Peter Corbin MD - Last Filed: 01/02/24 07:54> Orders Ordered: Discontinued Medications Acetaminophen (Acetaminophen 325 Mg Tablet) 975 mg PO NOW ONE Stop: 12/13/23 20:51 Last Admin: 12/13/23 21:08 Dose: 975 mg Documented By: GC Hydromorphone HCl (Hydromorphone 0.5 Mg Inj) 0.5 mg IV NOW ONE Stop: 12/13/23 20:50 Last Admin: 12/13/23 21:08 Dose: 0.5 mg Documented By: GC Sodium Chloride (Normal Saline 0.9%) 1,000 mls @ 1,000 mls/hr IV BOLUS ONE Stop: 12/13/23 18:31 Last Infusion: 12/13/23 19:15 Dose: Infused Documented By: Admin: 12/13/23 18:00 Dose: 1,000 mls/hr Documented By: SPF Metoclopramide HCl (Metoclopramide 10 Mg/2 Ml Inj) 10 mg IV NOW ONE Stop: 12/13/23 17:23 Last Admin: 12/13/23 17:35 Dose: 10 mg Documented By: SPF Morphine Sulfate (Morphine 4 Mg/Ml Inj) 4 mg IV NOW ONE Stop: 12/13/23 17:54 Last Admin: 12/13/23 18:31 Dose: 4 mg Documented By: SPF Ondansetron HCl (Ondansetron 4 Mg/2 Ml Inj) 4 mg IV NOW PRN PRN Reason: Nausea And Vomiting Last Admin: 12/13/23 16:39 Dose: 4 mg Documented By: OW Ondansetron HCl (Ondansetron 4 Mg Odt) 4 mg PO NOW PRN PRN Reason: Nausea And Vomiting Ondansetron HCl (Ondansetron 4 Mg/2 Ml Inj) 4 mg IV NOW ONE Stop: 12/13/23 20:50 Last Admin: 12/13/23 21:09 Dose: 4 mg Documented By: TERESA Ondansetron HCl (Ondansetron 4 Mg Odt Prepack) 1 bottle MISC DIRECTED ONE Stop: 12/13/23 20:50 Last Admin: 12/13/23 21:09 Dose: 1 bottle Documented By: TERESA Vital Signs Vital signs: Vital Signs - 8 hr 12/13/23 16:23 12/13/23 17:02 12/13/23 17:30 Temperature 97.4 F L Pulse Rate 122 H 95 H 101 H Respiratory Rate 18 24 Blood Pressure 182/90 H Pulse Oximetry 91 Oxygen Delivery Method Room Air 12/13/23 17:59 12/13/23 17:59 12/13/23 18:00 Temperature Pulse Rate 95 H 96 H Respiratory Rate 23 Blood Pressure 177/105 H Pulse Oximetry 97 97 Oxygen Delivery Method Room Air 12/13/23 18:00 12/13/23 18:09 12/13/23 18:09 Temperature Pulse Rate 92 H Respiratory Rate 12 Blood Pressure 174/115 H 178/96 H Pulse Oximetry 96 Oxygen Delivery Method 12/13/23 18:29 12/13/23 18:29 12/13/23 18:34 Temperature Pulse Rate 98 H 101 H Respiratory Rate 24 Blood Pressure 153/75 H Pulse Oximetry 96 97 Oxygen Delivery Method Room Air Room Air 12/13/23 18:37 12/13/23 18:37 12/13/23 18:52 Temperature Pulse Rate 95 H 90 Respiratory Rate 12 10 L Blood Pressure 144/68 H Pulse Oximetry 94 97 Oxygen Delivery Method Room Air Room Air 12/13/23 18:52 12/13/23 19:00 12/13/23 19:01 Temperature Pulse Rate 92 H 83 Respiratory Rate 15 14 Blood Pressure 159/77 H Pulse Oximetry 91 Oxygen Delivery Method 12/13/23 19:01 12/13/23 19:09 12/13/23 19:09 Temperature Pulse Rate 92 H Respiratory Rate 12 Blood Pressure 166/69 H 162/66 H Pulse Oximetry 93 Oxygen Delivery Method Room Air 12/13/23 19:30 12/13/23 19:31 12/13/23 19:31 Temperature Pulse Rate 98 H 99 H Respiratory Rate 25 H 42 H Blood Pressure 181/95 H Pulse Oximetry 95 96 Oxygen Delivery Method <Samina Stephen MD - Last Filed: 12/13/23 20:57> Orders Ordered: Discontinued Medications Acetaminophen (Acetaminophen 325 Mg Tablet) 975 mg PO NOW ONE Stop: 12/13/23 20:51 Last Admin: 12/13/23 21:08 Dose: 975 mg Documented By: GC Hydromorphone HCl (Hydromorphone 0.5 Mg Inj) 0.5 mg IV NOW ONE Stop: 12/13/23 20:50 Last Admin: 12/13/23 21:08 Dose: 0.5 mg Documented By: GC Sodium Chloride (Normal Saline 0.9%) 1,000 mls @ 1,000 mls/hr IV BOLUS ONE Stop: 12/13/23 18:31 Last Infusion: 12/13/23 19:15 Dose: Infused Documented By: Admin: 12/13/23 18:00 Dose: 1,000 mls/hr Documented By: SPF Metoclopramide HCl (Metoclopramide 10 Mg/2 Ml Inj) 10 mg IV NOW ONE Stop: 12/13/23 17:23 Last Admin: 12/13/23 17:35 Dose: 10 mg Documented By: SPF Morphine Sulfate (Morphine 4 Mg/Ml Inj) 4 mg IV NOW ONE Stop: 12/13/23 17:54 Last Admin: 12/13/23 18:31 Dose: 4 mg Documented By: SPF Ondansetron HCl (Ondansetron 4 Mg/2 Ml Inj) 4 mg IV NOW PRN PRN Reason: Nausea And Vomiting Last Admin: 12/13/23 16:39 Dose: 4 mg Documented By: OW Ondansetron HCl (Ondansetron 4 Mg Odt) 4 mg PO NOW PRN PRN Reason: Nausea And Vomiting Ondansetron HCl (Ondansetron 4 Mg/2 Ml Inj) 4 mg IV NOW ONE Stop: 12/13/23 20:50 Last Admin: 12/13/23 21:09 Dose: 4 mg Documented By: GC Ondansetron HCl (Ondansetron 4 Mg Odt Prepack) 1 bottle MISC DIRECTED ONE Stop: 12/13/23 20:50 Last Admin: 12/13/23 21:09 Dose: 1 bottle Documented By: GC Vital Signs Vital signs: Vital Signs - 8 hr 12/13/23 16:23 12/13/23 17:02 12/13/23 17:30 Temperature 97.4 F L Pulse Rate 122 H 95 H 101 H Respiratory Rate 18 24 Blood Pressure 182/90 H Pulse Oximetry 91 Oxygen Delivery Method Room Air 12/13/23 17:59 12/13/23 17:59 12/13/23 18:00 Temperature Pulse Rate 95 H 96 H Respiratory Rate 23 Blood Pressure 177/105 H Pulse Oximetry 97 97 Oxygen Delivery Method Room Air 12/13/23 18:00 12/13/23 18:09 12/13/23 18:09 Temperature Pulse Rate 92 H Respiratory Rate 12 Blood Pressure 174/115 H 178/96 H Pulse Oximetry 96 Oxygen Delivery Method 12/13/23 18:29 12/13/23 18:29 12/13/23 18:34 Temperature Pulse Rate 98 H 101 H Respiratory Rate 24 Blood Pressure 153/75 H Pulse Oximetry 96 97 Oxygen Delivery Method Room Air Room Air 12/13/23 18:37 12/13/23 18:37 12/13/23 18:52 Temperature Pulse Rate 95 H 90 Respiratory Rate 12 10 L Blood Pressure 144/68 H Pulse Oximetry 94 97 Oxygen Delivery Method Room Air Room Air 12/13/23 18:52 12/13/23 19:00 12/13/23 19:01 Temperature Pulse Rate 92 H 83 Respiratory Rate 15 14 Blood Pressure 159/77 H Pulse Oximetry 91 Oxygen Delivery Method 12/13/23 19:01 12/13/23 19:09 12/13/23 19:09 Temperature Pulse Rate 92 H Respiratory Rate 12 Blood Pressure 166/69 H 162/66 H Pulse Oximetry 93 Oxygen Delivery Method Room Air 12/13/23 19:30 12/13/23 19:31 12/13/23 19:31 Temperature Pulse Rate 98 H 99 H Respiratory Rate 25 H 42 H Blood Pressure 181/95 H Pulse Oximetry 95 96 Oxygen Delivery Method MDM - Nausea/Vomiting/Diarrhea <Peter Corbin MD - Last Filed: 01/02/24 07:54> Lab Data 12/13/23 17:15 12/13/23 17:15 Labs: Lab Results 12/13/23 12/13/23 12/13/23 Range/Units 17:15 17:40 17:57 WBC 14.9 H (4.5-11.0) X10^3/uL RBC 5.12 (4.0-5.2) X10^6/uL Hgb 15.9 (12.0-16.0) g/dL Hct 47.4 H (36-46) % MCV 92.6 (80-100) fL MCH 31.0 (26-34) PG MCHC 33.4 (30-36) % RDW 14.2 (11.6-14.8) % Plt Count 205 (150-400) X10^3/uL Neut % (Auto) 90.8 H (50-75) % Lymph % (Auto) 5.7 L (25-40) % [place] % (Auto) 2.6 L (3-14) % Eos % (Auto) 0.0 L (2-4) % Baso % (Auto) 0.9 (0-2) % Neut # (Auto) 31630 H (9043-2446) /uL Lymph # (Auto) 800 L (7757-7313) /uL [place] # (Auto) 400 (0-900) /uL Eos # (Auto) 0 (0-450) /uL Baso # (Auto) 100 (0-100) /uL Sodium 139 (137-145) mmol/L Potassium 3.5 (3.4-5.1) mmol/L Chloride 104 (98-107) mmol/L Carbon Dioxide 22 (22-32) mmol/L BUN 11 (7-17) mg/dL Creatinine 0.65 (0.52-1.04) mg/dL Estimated GFR > 60 (>60) mL/min BUN/Creatinine Ratio 16.9 (6-22) Glucose 193 H (80-110) mg/dL Lactate 2.9 H (0.7-2.1) mmol/L Calcium 10.4 H (8.4-10.2) mg/dL Total Bilirubin 0.9 (0.2-1.3) mg/dL AST 23 (14-36) IU/L ALT 20 (<35) IU/L Alkaline Phosphatase 77 (38-126) U/L Total Creatine Kinase 44 (30-135) U/L Troponin I < 0.012 (0.01-0.034) ng/mL Total Protein 7.5 (6.3-8.2) g/dL Albumin 4.3 (3.5-5.0) g/dL Globulin 3.2 (1.7-4.1) g/dL Albumin/Globulin Ratio 1.3 (1.0-2.8) Lipase 30 (23-300) U/L Procalcitonin 0.05 (<0.5) ng/mL Urine RBC 0-1/hpf (0-5/HPF) Urine WBC 0-1/hpf (0-5/HPF) Ur Squamous Epith Cells 0-1 /hpf (0-5/HPF) Urine Bacteria Occasional (0-1) (None) Ur Culture Indicated? Cult not indicated Vol Urine Centrifuged 10ml (spun) Chlamy pneumoniae PCR Not detected (Not Detect) Adenovirus (PCR) Not detected (Not Detect) B.parapertussis DNA PCR Not detected (Not Detecte) Coronavirus OC43 (PCR) Not detected (Not Detect) Coronavirus HKU1 (PCR) Not detected (Not Detect) Coronavirus 229E (PCR) Not detected (Not Detect) SARS-CoV-2 (PCR) Not detected (Not Detecte) Coronavirus NL63 (PCR) Not detected (Not Detect) Human Metapneumovir PCR Not detected (Not Detect) Influenza Type A (PCR) Not detected (Not Detect) Influenza Type B (PCR) Not detected (Not Detect) M. pneumoniae (PCR) Not detected (Not Detect) Parainfluenza 1 (PCR) Not detected (Not Detect) Parainfluenza 2 (PCR) Not detected (Not Detect) Parainfluenza 3 (PCR) Not detected (Not Detect) Parainfluenza 4 (PCR) Not detected (Not Detect) RSV (PCR) Not detected (Not Detect) Entero/Rhino (PCR) Not detected (Not Detect) 12/13/23 Range/Units 20:02 WBC (4.5-11.0) X10^3/uL RBC (4.0-5.2) X10^6/uL Hgb (12.0-16.0) g/dL Hct (36-46) % MCV (80-100) fL MCH (26-34) PG MCHC (30-36) % RDW (11.6-14.8) % Plt Count (150-400) X10^3/uL Neut % (Auto) (50-75) % Lymph % (Auto) (25-40) % [place] % (Auto) (3-14) % Eos % (Auto) (2-4) % Baso % (Auto) (0-2) % Neut # (Auto) (0823-9357) /uL Lymph # (Auto) (9554-9501) /uL [place] # (Auto) (0-900) /uL Eos # (Auto) (0-450) /uL Baso # (Auto) (0-100) /uL Sodium (137-145) mmol/L Potassium (3.4-5.1) mmol/L Chloride (98-107) mmol/L Carbon Dioxide (22-32) mmol/L BUN (7-17) mg/dL Creatinine (0.52-1.04) mg/dL Estimated GFR (>60) mL/min BUN/Creatinine Ratio (6-22) Glucose (80-110) mg/dL Lactate 2.1 (0.7-2.1) mmol/L Calcium (8.4-10.2) mg/dL Total Bilirubin (0.2-1.3) mg/dL AST (14-36) IU/L ALT (<35) IU/L Alkaline Phosphatase (38-126) U/L Total Creatine Kinase (30-135) U/L Troponin I (0.01-0.034) ng/mL Total Protein (6.3-8.2) g/dL Albumin (3.5-5.0) g/dL Globulin (1.7-4.1) g/dL Albumin/Globulin Ratio (1.0-2.8) Lipase (23-300) U/L Procalcitonin (<0.5) ng/mL Urine RBC (0-5/HPF) Urine WBC (0-5/HPF) Ur Squamous Epith Cells (0-5/HPF) Urine Bacteria (None) Ur Culture Indicated? Vol Urine Centrifuged Chlamy pneumoniae PCR (Not Detect) Adenovirus (PCR) (Not Detect) B.parapertussis DNA PCR (Not Detecte) Coronavirus OC43 (PCR) (Not Detect) Coronavirus HKU1 (PCR) (Not Detect) Coronavirus 229E (PCR) (Not Detect) SARS-CoV-2 (PCR) (Not Detecte) Coronavirus NL63 (PCR) (Not Detect) Human Metapneumovir PCR (Not Detect) Influenza Type A (PCR) (Not Detect) Influenza Type B (PCR) (Not Detect) M. pneumoniae (PCR) (Not Detect) Parainfluenza 1 (PCR) (Not Detect) Parainfluenza 2 (PCR) (Not Detect) Parainfluenza 3 (PCR) (Not Detect) Parainfluenza 4 (PCR) (Not Detect) RSV (PCR) (Not Detect) Entero/Rhino (PCR) (Not Detect) Urine Dip Bedside Urine Glucose 100 mg/dl Bedside Urine Bilirubin - Negative Bedside Urine Ketone ++ 40 Urine Specific [place] 1.015 Bedside Urine Occult Blood +/- Bedside Urine pH 6.5 Bedside Urine Protein - Negative Bedside Urine Urobilinogen - Negative Bedside Urine Nitrite - Negative Bedside Urine Leukocytes - Negative Esterase MDM Narrative Medical decision making narrative: patient denies any sick contacts. Patient complains of nausea and vomiting since this morning. Went to bed last night no problems. ComplainsOf abdominal pain diffusely. No chest pain no back pain. No urine complaints. Patient denies any black or bloody stools. No hematemesis. Blood pressure noted heart rate noted. [place] dizzy as well. Patient has history of hypertension and diverticulitis. After history and exam CBC CMP morphine Zofran Reglan normal saline CT abdomen pelvis EKG troponin MDM CC: abdominal pain Complicating co-morbidities: cholecystectomy history Data collected from: patient Medical records reviewed: no recent visit for this complaint Differential considered: Includes but not limited to bowel obstruction appendicitis diverticulitis colitis UTI STEMI non-STEMI ischemic bowel Exam documented above, pertinent findings include: tender abdomen Lab Test results independently reviewed as above. Pertinent findings: WBC 14.9 sodium 139 potassium 3.5 glucose 193 lactate 2.9 AST 23 ALT 20 Independently reviewed EKG sinus rhythm rate [address] elevation or depression Imaging studies independently reviewed: CT abdomen pelvis Consultations: Treatments: morphine Zofran Reglan normal saline Re-evaluations: Discussion: Diagnosis: December 13, 2023 6:00 p.m. [place]: Sign out to Dr Stephen, CT imaging is pending. Reassess for pain and nausea and vomiting. <Samina Stephen MD - Last Filed: 02/15/24 20:57> Lab Data Labs: Lab Results 12/13/23 12/13/23 12/13/23 Range/Units 17:15 17:40 17:57 WBC 14.9 H (4.5-11.0) X10^3/uL RBC 5.12 (4.0-5.2) X10^6/uL Hgb 15.9 (12.0-16.0) g/dL Hct 47.4 H (36-46) % MCV 92.6 (80-100) fL MCH 31.0 (26-34) PG MCHC 33.4 (30-36) % RDW 14.2 (11.6-14.8) % Plt Count 205 (150-400) X10^3/uL Neut % (Auto) 90.8 H (50-75) % Lymph % (Auto) 5.7 L (25-40) % [place] % (Auto) 2.6 L (3-14) % Eos % (Auto) 0.0 L (2-4) % Baso % (Auto) 0.9 (0-2) % Neut # (Auto) 59194 H (3552-5359) /uL Lymph # (Auto) 800 L (8244-1496) /uL [place] # (Auto) 400 (0-900) /uL Eos # (Auto) 0 (0-450) /uL Baso # (Auto) 100 (0-100) /uL Sodium 139 (137-145) mmol/L Potassium 3.5 (3.4-5.1) mmol/L Chloride 104 (98-107) mmol/L Carbon Dioxide 22 (22-32) mmol/L BUN 11 (7-17) mg/dL Creatinine 0.65 (0.52-1.04) mg/dL Estimated GFR > 60 (>60) mL/min BUN/Creatinine Ratio 16.9 (6-22) Glucose 193 H (80-110) mg/dL Lactate 2.9 H (0.7-2.1) mmol/L Calcium 10.4 H (8.4-10.2) mg/dL Total Bilirubin 0.9 (0.2-1.3) mg/dL AST 23 (14-36) IU/L ALT 20 (<35) IU/L Alkaline Phosphatase 77 (38-126) U/L Total Creatine Kinase 44 (30-135) U/L Troponin I < 0.012 (0.01-0.034) ng/mL Total Protein 7.5 (6.3-8.2) g/dL Albumin 4.3 (3.5-5.0) g/dL Globulin 3.2 (1.7-4.1) g/dL Albumin/Globulin Ratio 1.3 (1.0-2.8) Lipase 30 (23-300) U/L Procalcitonin 0.05 (<0.5) ng/mL Urine RBC 0-1/hpf (0-5/HPF) Urine WBC 0-1/hpf (0-5/HPF) Ur Squamous Epith Cells 0-1 /hpf (0-5/HPF) Urine Bacteria Occasional (0-1) (None) Ur Culture Indicated? Cult not indicated Vol Urine Centrifuged 10ml (spun) Chlamy pneumoniae PCR Not detected (Not Detect) Adenovirus (PCR) Not detected (Not Detect) B.parapertussis DNA PCR Not detected (Not Detecte) Coronavirus OC43 (PCR) Not detected (Not Detect) Coronavirus HKU1 (PCR) Not detected (Not Detect) Coronavirus 229E (PCR) Not detected (Not Detect) SARS-CoV-2 (PCR) Not detected (Not Detecte) Coronavirus NL63 (PCR) Not detected (Not Detect) Human Metapneumovir PCR Not detected (Not Detect) Influenza Type A (PCR) Not detected (Not Detect) Influenza Type B (PCR) Not detected (Not Detect) M. pneumoniae (PCR) Not detected (Not Detect) Parainfluenza 1 (PCR) Not detected (Not Detect) Parainfluenza 2 (PCR) Not detected (Not Detect) Parainfluenza 3 (PCR) Not detected (Not Detect) Parainfluenza 4 (PCR) Not detected (Not Detect) RSV (PCR) Not detected (Not Detect) Entero/Rhino (PCR) Not detected (Not Detect) 12/13/23 Range/Units 20:02 WBC (4.5-11.0) X10^3/uL RBC (4.0-5.2) X10^6/uL Hgb (12.0-16.0) g/dL Hct (36-46) % MCV (80-100) fL MCH (26-34) PG MCHC (30-36) % RDW (11.6-14.8) % Plt Count (150-400) X10^3/uL Neut % (Auto) (50-75) % Lymph % (Auto) (25-40) % [place] % (Auto) (3-14) % Eos % (Auto) (2-4) % Baso % (Auto) (0-2) % Neut # (Auto) (7563-5859) /uL Lymph # (Auto) (8858-4012) /uL [place] # (Auto) (0-900) /uL Eos # (Auto) (0-450) /uL Baso # (Auto) (0-100) /uL Sodium (137-145) mmol/L Potassium (3.4-5.1) mmol/L Chloride (98-107) mmol/L Carbon Dioxide (22-32) mmol/L BUN (7-17) mg/dL Creatinine (0.52-1.04) mg/dL Estimated GFR (>60) mL/min BUN/Creatinine Ratio (6-22) Glucose (80-110) mg/dL Lactate 2.1 (0.7-2.1) mmol/L Calcium (8.4-10.2) mg/dL Total Bilirubin (0.2-1.3) mg/dL AST (14-36) IU/L ALT (<35) IU/L Alkaline Phosphatase (38-126) U/L Total Creatine Kinase (30-135) U/L Troponin I (0.01-0.034) ng/mL Total Protein (6.3-8.2) g/dL Albumin (3.5-5.0) g/dL Globulin (1.7-4.1) g/dL Albumin/Globulin Ratio (1.0-2.8) Lipase (23-300) U/L Procalcitonin (<0.5) ng/mL Urine RBC (0-5/HPF) Urine WBC (0-5/HPF) Ur Squamous Epith Cells (0-5/HPF) Urine Bacteria (None) Ur Culture Indicated? Vol Urine Centrifuged Chlamy pneumoniae PCR (Not Detect) Adenovirus (PCR) (Not Detect) B.parapertussis DNA PCR (Not Detecte) Coronavirus OC43 (PCR) (Not Detect) Coronavirus HKU1 (PCR) (Not Detect) Coronavirus 229E (PCR) (Not Detect) SARS-CoV-2 (PCR) (Not Detecte) Coronavirus NL63 (PCR) (Not Detect) Human Metapneumovir PCR (Not Detect) Influenza Type A (PCR) (Not Detect) Influenza Type B (PCR) (Not Detect) M. pneumoniae (PCR) (Not Detect) Parainfluenza 1 (PCR) (Not Detect) Parainfluenza 2 (PCR) (Not Detect) Parainfluenza 3 (PCR) (Not Detect) Parainfluenza 4 (PCR) (Not Detect) RSV (PCR) (Not Detect) Entero/Rhino (PCR) (Not Detect) Urine Dip Bedside Urine Glucose 100 mg/dl Bedside Urine Bilirubin - Negative Bedside Urine Ketone ++ 40 Urine Specific [place] 1.015 Bedside Urine Occult Blood +/- Bedside Urine pH 6.5 Bedside Urine Protein - Negative Bedside Urine Urobilinogen - Negative Bedside Urine Nitrite - Negative Bedside Urine Leukocytes - Negative Esterase Imaging Data CT scan - abdomen/pelvis: Radiologist's Impression: PROCEDURE: CT ABDOMEN PELVIS W CON INDICATIONS: IV contrast only/abdominal pain TECHNIQUE: After the administration of intravenous contrast, axial sections acquired from the lung bases to the pubic symphysis. Coronal and sagittal reformats were performed. For radiation dose reduction, the following was used: automated exposure control, adjustment of mA and/or kV according to patient size. COMPARISON: [facility], CT, CT ABDOMEN PELVIS W CON, 05/04/2023, 17:59., CT abdomen 8 renal protocol 03/13/2022 FINDINGS: Image quality: Diagnostic. Lower Chest: No significant findings. ABDOMEN: Liver: No solid mass. Gallbladder: Status post cholecystectomy Biliary ducts: No biliary dilation. Pancreas: No ductal dilation. Spleen: Size is within normal limits. Adrenal Glands: Stable 3.3 centimeter left adrenal mass. Kidneys and Ureters: No hydronephrosis. No solid mass. No complex renal cystic lesion which requires follow up. Stable right simple cysts. Stomach and Bowel: Normal colonic caliber, without significant wall thickening. Scattered colonic diverticulosis without evidence for acute diverticulitis. Peritoneum: No abnormal intraperitoneal fluid. No free air. Ventral Wall: No significant ventral hernia. Abdominal Nodes: No retroperitoneal or mesenteric adenopathy by size criteria. Vessels: Aorta and inferior vena cava are normal in size. PELVIS: Pelvic Organs: Unremarkable. Bladder: No bladder wall thickening, accounting for underdistention. Pelvic Nodes: No enlarged lymph nodes. Miscellaneous: No inguinal hernias are seen. Bones: No aggressive osseous abnormality. IMPRESSION: No acute process in the abdomen or pelvis. Colonic diverticulosis without CT evidence of acute diverticulitis. Stable left adrenal mass previously evaluated to be adenoma. MDM Narrative Medical decision making narrative: After history and exam CBC CMP morphine Zofran Reglan normal saline CT abdomen pelvis EKG troponin [facility] CC: abdominal pain Complicating co-morbidities: cholecystectomy history Data collected from: patient Medical records reviewed: no recent visit for this complaint Differential considered: Includes but not limited to bowel obstruction appendicitis diverticulitis colitis UTI STEMI non-STEMI ischemic bowel Exam documented above, pertinent findings include: tender abdomen Lab Test results independently reviewed as above. Pertinent findings: WBC 14.9 sodium 139 potassium 3.5 glucose 193 lactate 2.9 AST 23 ALT 20 Independently reviewed EKG sinus rhythm rate [address] elevation or depression Imaging studies independently reviewed: CT abdomen pelvis does not show any acute findings specifically no diverticulitis or intra-abdominal explanation for her abdominal pain Treatments: morphine Zofran Reglan normal saline December 13, 2023 6:00 p.m. [place]: Sign out to Dr Stephen, CT imaging is pending. Reassess for pain and nausea and vomiting. 8pm Dr Stephen. Patient is examined, notes reviewed Re-evaluations: Patient is re-evaluated. Still complaining of some epigastric tenderness. She does not have an acute surgical abdomen. I am not impressed with a pneumonia. There was no flank tenderness, we will have her try some water, add some Tylenol to help with the myalgias and half a mg of Dilaudid to help with the general myalgias Discussion: 68-year-old woman with abdominal pain nausea and no vomiting today. CT scan and lab work do not suggest severe infection. CT scan does not show any evidence of ischemic bowel, diverticulitis, appendicitis, other intra- abdominal catastrophe or surgical abnormality. The minor epigastric tenderness that she has is better after Zofran. She is having chills but is able to drink fluids. At this point I am not seeing any evidence of bacterial infection, reason for surgical consultation, additional imaging or hospitalization. Did review that with the patient. We will send her home with her with instructions to return if symptoms are not significantly improving. There was no evidence of hepatic disease such as ascending cholangitis or choledocholithiasis, no pancreatitis, no suggestion of acute coronary syndrome. Her lactic acid was slightly elevated and has come down nicely with fluid resuscitation and is most likely secondary to dehydration. In the absence of alternate explanation, most likely diagnosis for her current presentation is a viral gastroenteritis at this point. Very clearly reviewed return to ER precautions should symptoms worsen. Discharge Plan Departure Patient Disposition: Home Clinical Impression: Acute dehydration Abdominal pain Qualifiers: Abdominal location: unspecified location Qualified Code(s): R10.9 - Unspecified abdominal pain Nausea & vomiting Qualifiers: Vomiting type: unspecified Qualified Code(s): R11.2 - Nausea with vomiting, unspecified Instructions: DI for Viral Gastroenteritis -- Adult Activity Restrictions/Additional Instructions: Thank you for coming in today I am sorry that you are feeling so unwell. With your workup today we were looking for bacterial infections that might explain the body aches, the fevers and the nausea. There is no evidence of pneumonia, bleeding from your stomach, bowel obstruction, diverticulitis, appendicitis, kidney infection or bladder infection. With the pain in the upper stomach area, the body aches and the chills this very much looks like a viral infection. Viral infections simply need time and supportive care. I have given you prescription for some Zofran, to help with nausea. I would recommend Tylenol to help with the body aches the chills/fevers in the upper abdominal tenderness We did do a thorough workup today however if your symptoms are worsening, it is appropriate to return to the emergency department. Sometimes it takes a bit of time for the body to let us know exactly where the infection maybe. Prescriptions: No Action simvastatin 10 MG tablet 20 mg PO HS Qty: 0 clonazepam 0.5 mg tablet 0.14 mg PO DAILY Patient Comments: takes for sleeping amlodipine 2.5 mg tablet 2.5 mg PO DAILY losartan 25 mg tablet 25 mg PO DAILY celecoxib [Celebrex] 200 mg Capsule 200 mg PO BID Qty: 20 0RF levofloxacin 250 mg Tablet 750 mg PO 0700 Qty: 3 0RF Referrals: Peter Naik DO [Primary Care Provider] - Stand Alone Forms: Patient Portal/API
[2023-12-13 17:57] LABS: Troponin I < 0.012 ng/mL (0.01-0.034)
[2023-12-13] MEDS: SODIUM CHLORIDE 0.9% 1,000 ML 1000 ML IV (18:00)
[2023-12-13 18:01] LABS: Procalcitonin 0.05 ng/mL (<0.5)
[2023-12-13 18:13] LABS: Bacteria Urine Occasional (0-1); Culture Indicated Urine Cult Not Indicated; RBC Urine 0-1/HPF (0-5/HPF); Squamous Epithelial Cell Urine 0-1 /HPF (0-5/HPF); Urine Volume 10mL (spun); WBC Urine 0-1/HPF (0-5/HPF)
[2023-12-13] MEDS: MORPHINE 4 MG/ML INJ IV (18:31)
[2023-12-13 18:48] LABS: Adenovirus Not Detected (Not Detect); B. parapertussis Not Detected (Not Detecte); Bordetella pertussis Not Detected (Not Detect); Chlamydophila pneumoniae Not Detected (Not Detect); Coronavirus 229E Not Detected (Not Detect); Coronavirus HKU1 Not Detected (Not Detect); Coronavirus NL 63 Not Detected (Not Detect); Coronavirus OC43 Not Detected (Not Detect); Human Metapneumovirus Not Detected (Not Detect); Human Rhinovirus/Enterovirus Not Detected (Not Detect); Influenza A Not Detected (Not Detect); Influenza B Not Detected (Not Detect); Mycoplasma pneumoniae Not Detected (Not Detect); Parainfluenza Virus 1 Not Detected (Not Detect); Parainfluenza Virus 2 Not Detected (Not Detect); Parainfluenza Virus 3 Not Detected (Not Detect); Parainfluenza Virus 4 Not Detected (Not Detect); Respiratory Syncytial Virus Not Detected (Not Detect); SARS- CoV-2 Not Detected (Not Detecte)
[2023-12-13 19:06] LABS: Reflexed Lactate in 2 Hours Y
[2023-12-13 20:26] LABS: Lactate 2HR (Lactic Acid Rflx) 2.1 mmol/L (0.7-2.1)
[2023-12-13] MEDS: HYDROMORPHONE 0.5 MG INJ IV (21:08)
[2023-12-13] MEDS: ACETAMINOPHEN 325 MG TABLET 975 MG PO (21:08)
[2023-12-13] MEDS: ONDANSETRON 4 MG ODT PREPACK 1 BOTTLE MISC (21:09)
== END 2023-12-13 21:14 | disposition home or self-care (01) ==
PROVIDERS: Emergency Medicine; Emergency Provider Emergency Medicine; Family Provider Family Medicine; PCP Family Medicine
DX: R10.13 Epigastric pain (principal); R11.2 Nausea with vomiting, unspecified; E86.0 Dehydration; I10 Essential (primary) hypertension; F17.200 Nicotine dependence, unspecified, uncomplicated
CPT/HCPCS: 74177; 80053; 81003; 81015; 82550; 83605; 83690; 84145; 84484; 85025; 87040; 87633; 93005; 93010; 96361; 96374; 96375; 96376; 99284; J1170; J2270; J2405; J2765